=== PATIENT | female | born 1960 | race Caucasian/White ===

== ENCOUNTER 2017-02-08 11:38 | Emergency (ER) | payer BC ==
[2017-02-08] MEDS ORDERED: Sodium Chloride 0.9% 2.5 ML Syringe FLUSH PRN ×2 (11:57→12:05)
[2017-02-08] MEDS ORDERED: Sodium Chloride 0.9% 10 ML Syringe FLUSH PRN ×2 (11:57→12:05)
[2017-02-08] MEDS ORDERED: Sodium Chloride 0.9% 1,000 ML IV ONE (11:57)
--- NOTE | 2017-02-08 12:03 | EDM.PDOC ---
ED HPI GI/ABDOMINAL - General Chief Complaint: Gastrointestinal Problem Stated Complaint: BLOOD IN STOOL Time Seen by Provider: 02/08/17 11:38 Source of Information: Reports: Patient History Limitations: Reports: No limitations - History of Present Illness INITIAL COMMENTS - FREE TEXT/NARRATIVE: History of present illness: [] Patient started having black stools yesterday. She has had 3 large dark reddish bloody stools this morning and now feels lightheaded and weak. She denies abdominal pain or vomiting. She has a history of alcoholism and hepatitis C. Review of systems: As per history of present illness and below otherwise all systems reviewed and negative. Past medical history: As per history of present illness and as reviewed below otherwise noncontributory. Surgical history: As per history of present illness and as reviewed below otherwise noncontributory. Social history: No reported history of drug or alcohol abuse. Family history: As per history of present illness and as reviewed below otherwise noncontributory. Physical exam: General: Well developed, well nourished in NAD HEENT: Atraumatic, normocephalic, pupils reactive, conjunctival pallor, no scleral icterus, mucous membranes moist, throat clear, neck supple, nontender, trachea midline. Lungs: Clear to auscultation, breath sounds equal bilaterally, chest nontender. Heart: S1S2, regular, negative for clicks, rubs, or JVD. Abdomen: Obese Soft, nondistended, nontender. Negative for masses or hepatosplenomegaly. Negative for costovertebral tenderness. Pelvis: Stable nontender. Genitourinary: Deferred. Rectal: Melena Extremities: Atraumatic, negative for cords or calf pain. Neurovascular unremarkable. Neuro: Awake, alert, oriented. Cranial nerves II through XII unremarkable. Cerebellum unremarkable. Motor and sensory unremarkable throughout. Exam nonfocal. Diagnostics: [] Labs drawn Therapeutics: [] Patient presented with blood pressure of 69/45 heart rate of 67, she did take metoprolol this morning. After 500 MLS of fluid her blood pressure improved to 113/59. Patient was given a proton bolus and started on drip. Dr. Mcqueen at [facility] was contacted and accepted transfer. Patient was also given Zofran for nausea. Impression: [] Acute GI bleed Plan: [] Patient will be transferred to [facility] by air Definitive disposition and diagnosis as appropriate pending reevaluation and review of above. - Related Data Allergies/ADRs: Allergies Allergy/AdvReac Type Severity Reaction Status Date / Time cephalexin [Cephalexin] Allergy Rash Verified 08/21/16 06:01 Home Meds: Home Meds Albuterol Sulfate [Albuterol Sulfate HFA] 2 puff QID PRN 03/21/14 [History] Metoprolol Succinate 50 mg PO ACBRK 03/21/14 [History] traZODone 50 - 100 mg PO BEDTIME 03/21/14 [History] Furosemide [Lasix] 20 mg PO DAILY PRN 02/14/16 [History] Tiotropium Br/Olodaterol HCl [Stiolto Respimat Inhal [place]] 2 puff INH DAILY [History] Levothyroxine 125 mcg PO ACBREAKFAST 08/21/16 [History] Primidone 50 mg PO BEDTIME 08/21/16 [History] Sertraline [Zoloft] 50 mg PO DAILY 08/21/16 [History] LORazepam [Ativan] 1 mg PO BID PRN #14 tablet 08/25/16 [Rx] Past Medical History HEENT History: Reports: None Cardiovascular History: Reports: Hypertension Respiratory History: Reports: COPD, Pneumonia, recurrent Gastrointestinal History: Reports: Other (see below) Other Gastrointestinal History: Hepatitis C but treated already, Gastric Bypass Genitourinary History: Reports: None 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 OB/BYN History: 4 Musculoskeletal History: Reports: Other (see below) Other Musculoskeletal History: Tremors Neurological History: Reports: Other (see below) Other Neuro History: Tremors Psychiatric History: Reports: Anxiety, Depression Endocrine/Metabolic History: Reports: Hypothyroidism Other Endocrine/Metabolic History: Hypothyroidism Hematologic History: Reports: None Immunologic History: Reports: None Oncologic (Cancer) History: Reports: None Dermatologic History: Reports: None - Infectious Disease History Infectious Disease History: Reports: Hepatitis C - Past Surgical History Female Surgical History: Reports: Hysterectomy Social & Family History - Family History Family Medical History: Noncontributory HEENT: Reports: None Cardiac: Reports: None Respiratory: Reports: COPD GI: Reports: None : Reports: None Endocrine/Metabolic: Reports: Diabetes, type I, Diabetes, type II - Tobacco Use Smoking Status *Q: Current Every Day Smoker Years of Tobacco use: 20 Packs/Tins Daily: 1 Used Tobacco, but Quit: Yes Month Tobacco Last Used: june Second Hand Smoke Exposure: Yes - Caffeine Use Caffeine Use: Reports: Other Caffeine Use Comment: occasionally - Alcohol Use Days Per Week of Alcohol Use: 7 Number of Drinks Per Day: 12 Total Drinks Per Week: 84 - Recreational Drug Use Recreational Drug Use: No Drug Use in Last 12 Months: No ED ROS GENERAL - Review of Systems Review Of Systems: See Below (See history of present illness) ED EXAM, GI/ABD - Physical Exam Exam: See Below (See history of present illness) Course - Vital Signs Last Recorded V/S: Last Vital Signs Temp 36.0 C 02/08/17 12:07 Pulse 67 02/08/17 12:07 Resp 22 H 02/08/17 12:07 BP 69/47 L 02/08/17 12:07 Pulse Ox 95 02/08/17 12:07 - Orders/Labs/Meds Orders: Active Orders 24 hr Category Date Time Status COMPREHENSIVE METABOLIC PN,CMP [CHEM] Stat Lab 02/08/17 12:00 Received INR,PT,PROTHROMBIN TIME [COAG] Stat Lab 02/08/17 12:00 Received PTT,PARTIAL THROMBOPLSTIN TIME [COAG] Stat Lab 02/08/17 12:00 Received TYPE AND SCREEN [BBK] Stat Lab 02/08/17 12:14 Received Pantoprazole [Protonix IV] 80 mg Med 02/08/17 12:15 Active Sodium Chloride 0.9% [Normal Saline] 100 ml IV .Continuous Sodium Chloride 0.9% [Normal Saline] 1,000 ml Med 02/08/17 11:57 Active IV .Bolus Sodium Chloride 0.9% [Saline Flush] Med 02/08/17 11:57 Active 10 ml FLUSH ASDIRECTED PRN Sodium Chloride 0.9% [Saline Flush] Med 02/08/17 12:05 Active 10 ml FLUSH ASDIRECTED PRN Sodium Chloride 0.9% [Saline Flush] Med 02/08/17 11:57 Active 2.5 ml FLUSH ASDIRECTED PRN Sodium Chloride 0.9% [Saline Flush] Med 02/08/17 12:05 Active 2.5 ml FLUSH ASDIRECTED PRN Peripheral IV Insertion Adult [OM.PC] Stat Oth 02/08/17 11:57 Ordered Peripheral IV Insertion Adult [OM.PC] Stat Oth 02/08/17 12:05 Ordered Medication Orders Sodium Chloride (Normal Saline) 1,000 mls @ 999 mls/hr IV .Bolus ONE Stop: 02/08/17 12:57 Last Admin: 02/08/17 12:18 Dose: 999 mls/hr Pantoprazole Sodium 80 mg/ (Sodium Chloride) 100 mls @ 10 mls/hr IV .Continuous SHARON Sodium Chloride (Saline Flush) 10 ml FLUSH ASDIRECTED PRN PRN Reason: Keep Vein Open Last Admin: 02/08/17 12:19 Dose: 10 ml Sodium Chloride (Saline Flush) 2.5 ml FLUSH ASDIRECTED PRN PRN Reason: Keep Vein Open Last Admin: 02/08/17 12:20 Dose: 2.5 ml Sodium Chloride (Saline Flush) 10 ml FLUSH ASDIRECTED PRN PRN Reason: Keep Vein Open Last Admin: 02/08/17 12:19 Dose: 10 ml Sodium Chloride (Saline Flush) 2.5 ml FLUSH ASDIRECTED PRN PRN Reason: Keep Vein Open Last Admin: 02/08/17 12:20 Dose: 2.5 ml Labs: Laboratory Tests 02/08/17 Range/Units 12:00 WBC 12.95 H (4.0-11.0) K/uL RBC 3.60 L (4.30-5.90) M/uL Hgb 9.8 L (12.0-16.0) g/dL Hct 29.8 L (36.0-46.0) % MCV 82.8 (80.0-98.0) fL MCH 27.2 (27.0-32.0) pg MCHC 32.9 (31.0-37.0) g/dL RDW Std Deviation 54.5 (28.0-62.0) fl RDW Coeff of Varsha 18 H (11.0-15.0) % Plt Count 175 (150-400) K/uL MPV 9.30 (7.40-12.00) fL Neut % (Auto) 65.3 (48.0-80.0) % Lymph % (Auto) 24.2 (16.0-40.0) % [place] % (Auto) 9.0 (0.0-15.0) % Eos % (Auto) 1.1 (0.0-7.0) % Baso % (Auto) 0.4 (0.0-1.5) % Neut # 8.5 H (1.4-5.7) K/uL Lymph # 3.1 H (0.6-2.4) K/uL [place] # 1.2 H (0.0-0.8) K/uL Eos # 0.1 (0.0-0.7) K/uL Baso # 0.1 (0.0-0.1) K/uL Nucleated RBC % 0.0 /100WBC Nucleated RBCs # 0 K/uL Meds: Medications Generic Name Dose Route Start Last Admin Trade Name Freq PRN Reason Stop Dose Admin Sodium Chloride 1,000 mls @ 999 mls/hr 02/08/17 11:57 02/08/17 12:18 Normal Saline IV 02/08/17 12:57 999 mls/hr .Bolus ONE Administration Pantoprazole Sodium 80 mg/ 100 mls @ 10 mls/hr 02/08/17 12:15 Sodium Chloride IV .Continuous SHARON Sodium Chloride 10 ml 02/08/17 11:57 02/08/17 12:19 Saline Flush FLUSH 10 ml ASDIRECTED PRN Administration Keep Vein Open Sodium Chloride 2.5 ml 02/08/17 11:57 02/08/17 12:20 Saline Flush FLUSH 2.5 ml ASDIRECTED PRN Administration Keep Vein Open Sodium Chloride 10 ml 02/08/17 12:05 02/08/17 12:19 Saline Flush FLUSH 10 ml ASDIRECTED PRN Administration Keep Vein Open Sodium Chloride 2.5 ml 02/08/17 12:05 02/08/17 12:20 Saline Flush FLUSH 2.5 ml ASDIRECTED PRN Administration Keep Vein Open Discontinued Medications Generic Name Dose Route Start Last Admin Trade Name Freq PRN Reason Stop Dose Admin Ondansetron HCl 4 mg 02/08/17 12:13 02/08/17 12:23 Zofran IVPUSH 02/08/17 12:14 4 mg ONETIME ONE Administration Ondansetron HCl Confirm 02/08/17 12:14 Zofran Administered 02/08/17 12:15 Dose 4 mg .ROUTE .STK-MED ONE Pantoprazole Sodium 80 mg 02/08/17 12:04 Protonix Iv IVPUSH 02/08/17 12:05 .BOLUS ONE Departure - Departure Time of Disposition: 12:34 Disposition: DC/Tfer to Acute Hospital 02 Condition: fair Clinical Impression: Acute GI bleeding Forms: ED Department Discharge - My Orders Last 24 Hours: My Active Orders 02/08/17 11:57 Sodium Chloride 0.9% [Normal Saline] 1,000 ml IV .Bolus Sodium Chloride 0.9% [Saline Flush] 10 ml FLUSH ASDIRECTED PRN Sodium Chloride 0.9% [Saline Flush] 2.5 ml FLUSH ASDIRECTED PRN Peripheral IV Insertion Adult [OM.PC] Stat 02/08/17 12:00 COMPREHENSIVE METABOLIC PN,CMP [CHEM] Stat INR,PT,PROTHROMBIN TIME [COAG] Stat PTT,PARTIAL THROMBOPLSTIN TIME [COAG] Stat 02/08/17 12:05 Sodium Chloride 0.9% [Saline Flush] 10 ml FLUSH ASDIRECTED PRN Sodium Chloride 0.9% [Saline Flush] 2.5 ml FLUSH ASDIRECTED PRN Peripheral IV Insertion Adult [OM.PC] Stat 02/08/17 12:14 TYPE AND SCREEN [BBK] Stat 02/08/17 12:15 Pantoprazole [Protonix IV] 80 mg Sodium Chloride 0.9% [Normal Saline] 100 ml IV .Continuous - Assessment/Plan Last 24 Hours: My Active Orders 02/08/17 11:57 Sodium Chloride 0.9% [Normal Saline] 1,000 ml IV .Bolus Sodium Chloride 0.9% [Saline Flush] 10 ml FLUSH ASDIRECTED PRN Sodium Chloride 0.9% [Saline Flush] 2.5 ml FLUSH ASDIRECTED PRN Peripheral IV Insertion Adult [OM.PC] Stat 02/08/17 12:00 COMPREHENSIVE METABOLIC PN,CMP [CHEM] Stat INR,PT,PROTHROMBIN TIME [COAG] Stat PTT,PARTIAL THROMBOPLSTIN TIME [COAG] Stat 02/08/17 12:05 Sodium Chloride 0.9% [Saline Flush] 10 ml FLUSH ASDIRECTED PRN Sodium Chloride 0.9% [Saline Flush] 2.5 ml FLUSH ASDIRECTED PRN Peripheral IV Insertion Adult [OM.PC] Stat 02/08/17 12:14 TYPE AND SCREEN [BBK] Stat 02/08/17 12:15 Pantoprazole [Protonix IV] 80 mg Sodium Chloride 0.9% [Normal Saline] 100 ml IV .Continuous
[2017-02-08] MEDS ORDERED: Pantoprazole 40 MG Vial IVPUSH ONE (12:04)
[2017-02-08] MEDS ORDERED: Ondansetron 4 MG/2 ML SDV IVPUSH ONE (12:13)
[2017-02-08] MEDS ORDERED: Ondansetron 4 MG/2 ML SDV ONE (12:14)
[2017-02-08] MEDS ORDERED: Pantoprazole 80 MG in Sodium Chloride 0.9% 100 ML IV SCH (12:15)
[2017-02-08 12:37] LABS: CHLORIDE,CL 104 mmol/L (98-110); SODIUM,NA 134 mmol/L (136-146)
[2017-02-08 13:03] VITALS: BP 115/64
== END 2017-02-08 13:04 ==
LOC: MW.ED 11:38
DX: K92.2 Gastrointestinal hemorrhage, unspecified (principal); I10 Essential (primary) hypertension; F17.210 Nicotine dependence, cigarettes, uncomplicated; Z88.6 Allergy status to analgesic agent; Z79.899 Other long term (current) drug therapy; Z87.01 Personal history of pneumonia (recurrent); Z90.710 Acquired absence of both cervix and uterus
CPT/HCPCS: 80053; 85025; 85610; 85730; 86850; 86900; 86901; 96374; 96376; 99285; C9113; J2405; J7030; J7040

== ENCOUNTER 2017-03-12 13:40 | Emergency (ER) | payer BC ==
[2017-03-12] MEDS ORDERED: Albuterol/Ipratropium 3.0-0.5 MG/3 ML Neb Soln NEB ONE (13:44)
[2017-03-12] MEDS ORDERED: predniSONE 20 MG Tab PO ONE (13:47)
[2017-03-12] MEDS: Albuterol 0.083% 2.5 MG/3 ML Neb Soln NEB PRN ×3 (14:00→15:17)
--- NOTE | 2017-03-12 14:03 | EDM.PDOC ---
ED HISTORY OF PRESENT ILLNESS - General Chief Complaint: Respiratory Problem Stated Complaint: SHORTNESS OF BREATH/COPD Time Seen by Provider: 03/12/17 13:41 Source of Information: Reports: Patient History Limitations: Reports: No limitations - History of Present Illness INITIAL COMMENTS - FREE TEXT/NARRATIVE: History of present illness: [] Patient's had a few days of worsening shortness of breath. He has a history of asthma and during the seasonal changes it gets worse. She denies any cough or fevers or any other illnesses. Review of systems: As per history of present illness and below otherwise all systems reviewed and negative. Past medical history: As per history of present illness and as reviewed below otherwise noncontributory. Surgical history: As per history of present illness and as reviewed below otherwise noncontributory. Social history: No reported history of drug or alcohol abuse. Family history: As per history of present illness and as reviewed below otherwise noncontributory. Physical exam: General: Well developed, well nourished in mild respiratory distress HEENT: Atraumatic, normocephalic, pupils reactive, negative for conjunctival pallor or scleral icterus, mucous membranes moist, throat clear, neck supple, nontender, trachea midline. No stridor Lungs: Bilateral wheezing to auscultation, accessory muscle use, breath sounds decreased bilaterally, chest nontender. Heart: S1S2, regular, negative for clicks, rubs, or JVD. Abdomen: Soft, nondistended, nontender. Negative for masses or hepatosplenomegaly. Negative for costovertebral tenderness. Pelvis: Stable nontender. Genitourinary: Deferred. Rectal: Deferred. Extremities: Atraumatic, negative for cords or calf pain. Neurovascular unremarkable. Neuro: Awake, alert, oriented. Cranial nerves II through XII unremarkable. Cerebellum unremarkable. Motor and sensory unremarkable throughout. Exam nonfocal. Diagnostics: [] Chest x-ray negative for pneumonia Therapeutics: [] DuoNeb and subsequent albuterol nebulizers, prednisone given in the ED with improvement Impression: [] Acute asthma exacerbation Plan: [] Prednisone 40 mg daily for 5 days use the inhaler as directed followup PMD return if symptoms worse keep appointment in 2 days with her primary care doctor as Definitive disposition and diagnosis as appropriate pending reevaluation and review of above. - Related Data Allergies/ADRs: Allergies Allergy/AdvReac Type Severity Reaction Status Date / Time cephalexin [Cephalexin] Allergy Rash Verified 03/12/17 13:58 Home Meds: Home Meds Albuterol Sulfate [Albuterol Sulfate HFA] 2 puff INH QID PRN 03/21/14 [History] Metoprolol Succinate 0 mg PO ACBRK 03/21/14 [History] traZODone 0 mg PO BEDTIME 03/21/14 [History] Furosemide [Lasix] 0 mg PO DAILY PRN 02/14/16 [History] Levothyroxine 0 mcg PO ACBREAKFAST 08/21/16 [History] Primidone 0 mg PO BEDTIME 08/21/16 [History] Sertraline [Zoloft] 0 mg PO DAILY 08/21/16 [History] Albuterol/Ipratropium [DuoNeb 3.0-0.5 MG/3 ML] 0 ml NEB Q4HRRT 03/12/17 [History ] Budesonide/Formoterol [Symbicort 160-4.5 MCG] 2 puff INH BID 03/12/17 [History] LORazepam [Ativan] 0 mg PO BID PRN 03/12/17 [History] predniSONE [Prednisone] 40 mg PO DAILY #10 tablet 03/12/17 [Rx] Past Medical History HEENT History: Reports: None Cardiovascular History: Reports: Hypertension Respiratory History: Reports: COPD, Pneumonia, recurrent Gastrointestinal History: Reports: Other (see below) Other Gastrointestinal History: Hepatitis C but treated already, Gastric Bypass Genitourinary History: Reports: None 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: 4 Musculoskeletal History: Reports: Other (see below) Other Musculoskeletal History: Tremors Neurological History: Reports: Other (see below) Other Neuro History: Tremors Psychiatric History: Reports: Anxiety, Depression Endocrine/Metabolic History: Reports: Hypothyroidism Other Endocrine/Metabolic History: Hypothyroidism Hematologic History: Reports: None Immunologic History: Reports: None Oncologic (Cancer) History: Reports: None Dermatologic History: Reports: None - Infectious Disease History Infectious Disease History: Reports: Hepatitis C - Past Surgical History Female Surgical History: Reports: Hysterectomy Social & Family History - Family History Family Medical History: Noncontributory HEENT: Reports: None Cardiac: Reports: None Respiratory: Reports: COPD GI: Reports: None : Reports: None Endocrine/Metabolic: Reports: Diabetes, type I, Diabetes, type II - Tobacco Use Smoking Status *Q: Current Every Day Smoker Years of Tobacco use: 20 Packs/Tins Daily: 1 Used Tobacco, but Quit: Yes Month Tobacco Last Used: june Second Hand Smoke Exposure: Yes - Caffeine Use Caffeine Use: Reports: Other Caffeine Use Comment: occasionally - Alcohol Use Days Per Week of Alcohol Use: 7 Number of Drinks Per Day: 12 Total Drinks Per Week: 84 - Recreational Drug Use Recreational Drug Use: No Drug Use in Last 12 Months: No ED ROS GENERAL - Review of Systems Review Of Systems: See Below (See history of present illness) ED EXAM, GENERAL - Physical Exam Exam: See Below (See history of present illness) Course - Vital Signs Last Recorded V/S: Last Vital Signs Temp 36.4 C 03/12/17 13:40 Pulse 76 03/12/17 13:40 Resp 26 H 03/12/17 13:40 BP 192/108 H 03/12/17 13:40 Pulse Ox 93 L 03/12/17 13:40 - Orders/Labs/Meds Orders: Active Orders 24 hr Category Date Time Status RT Aerosol Therapy [RC] ASDIRECTED Care 03/12/17 13:44 Active RT Aerosol Therapy [RC] ASDIRECTED Care 03/12/17 13:55 Active Chest 2V [CR] Stat Exams 03/12/17 14:08 Taken Albuterol [Proventil Neb Soln] Med 03/12/17 13:54 Active 2.5 mg NEB ASDIRECTED PRN Medication Orders Albuterol (Proventil Neb Soln) 2.5 mg NEB ASDIRECTED PRN PRN Reason: Shortness of Breath Stop: 03/14/17 13:55 Last Admin: 03/12/17 15:17 Dose: 2.5 mg Admin: 03/12/17 14:29 Dose: 2.5 mg Admin: 03/12/17 14:00 Dose: 2.5 mg Meds: Medications Generic Name Dose Route Start Last Admin Trade Name Freq PRN Reason Stop Dose Admin Albuterol 2.5 mg 03/12/17 13:54 03/12/17 15:17 Proventil Neb Soln NEB 03/14/17 13:55 2.5 mg ASDIRECTED PRN Administration Shortness of Breath Discontinued Medications Generic Name Dose Route Start Last Admin Trade Name Freq PRN Reason Stop Dose Admin Albuterol/Ipratropium 3 ml 03/12/17 13:44 03/12/17 13:47 Duoneb 3.0-0.5 Mg/3 Ml NEB 03/12/17 13:45 3 ml ONETIME ONE Administration Magnesium Sulfate 2 gm/ Premix 50 mls @ 25 mls/hr 03/12/17 14:32 IV 03/12/17 16:31 ONETIME ONE Sodium Chloride 1,000 mls @ 999 mls/hr 03/12/17 14:44 Normal Saline IV 03/12/17 15:44 .Bolus ONE Prednisone 60 mg 03/12/17 13:47 03/12/17 14:07 Prednisone PO 03/12/17 13:48 60 mg ONETIME ONE Administration Sodium Chloride 10 ml 03/12/17 14:32 Saline Flush FLUSH ASDIRECTED PRN Keep Vein Open Sodium Chloride 2.5 ml 03/12/17 14:32 Saline Flush FLUSH ASDIRECTED PRN Keep Vein Open Departure - Departure Time of Disposition: 15:32 Disposition: Home, Self-Care 01 Condition: good Clinical Impression: Acute asthma exacerbation Qualifiers: Asthma severity: severe persistent Qualified Code(s): J45.51 - Severe persistent asthma with (acute) exacerbation Prescriptions: predniSONE [Prednisone] 40 mg PO DAILY #10 tablet Referrals: John Bauer MD [Primary Care Provider] - Forms: ED Department Discharge Additional Instructions: The following information is given to patients seen in the emergency department who are being discharged to home. This information is to outline your options for follow-up care. We provide all patients seen in our emergency department with a follow-up referral. The need for follow-up, as well as the timing and circumstances, are variable depending upon the specifics of your emergency department visit. If you don't have a primary care physician on staff, we will provide you with a referral. We always advise you to contact your personal physician following an emergency department visit to inform them of the circumstance of the visit and for follow-up with them and/or the need for any referrals to a consulting specialist. The emergency department will also refer you to a specialist when appropriate. This referral assures that you have the opportunity for follow-up care with a specialist. All of these measure are taken in an effort to provide you with optimal care, which includes your follow-up. Under all circumstances we always encourage you to contact your private physician who remains a resource for coordinating your care. When calling for follow-up care, please make the office aware that this follow-up is from your recent emergency room visit. If for any reason you are refused follow-up, please contact the [facility] Emergency Department at and asked to speak to the emergency department charge nurse. Prednisone daily for 5 days Followup with PMD, [facility] [address] [place] [id number] - My Orders Last 24 Hours: My Active Orders 03/12/17 13:44 RT Aerosol Therapy [RC] ASDIRECTED 03/12/17 13:54 Albuterol [Proventil Neb Soln] 2.5 mg NEB ASDIRECTED PRN 03/12/17 13:55 RT Aerosol Therapy [RC] ASDIRECTED 03/12/17 14:08 Chest 2V [CR] Stat - Assessment/Plan Last 24 Hours: My Active Orders 03/12/17 13:44 RT Aerosol Therapy [RC] ASDIRECTED 03/12/17 13:54 Albuterol [Proventil Neb Soln] 2.5 mg NEB ASDIRECTED PRN 03/12/17 13:55 RT Aerosol Therapy [RC] ASDIRECTED 03/12/17 14:08 Chest 2V [CR] Stat
[2017-03-12 14:07] VITALS: BP 192/108
[2017-03-12] MEDS ORDERED: Magnesium Sulfate/Water 2 GM in Premix Bag 1 BAG IV ONE (14:32)
[2017-03-12] MEDS ORDERED: Sodium Chloride 0.9% 10 ML Syringe FLUSH PRN (14:32)
[2017-03-12] MEDS ORDERED: Sodium Chloride 0.9% 2.5 ML Syringe FLUSH PRN (14:32)
[2017-03-12] MEDS ORDERED: Sodium Chloride 0.9% 1,000 ML IV ONE (14:44)
--- NOTE | 2017-03-14 10:44 | CR ---
EXAM DATE: 03/12/17 PATIENT'S AGE: 56 Patient: JENNIFER MANDUJANO Facility: [place], [place] Site . Site : 1960 Study: XRay Chest [id number] 2:22:27 PM Ordering Physician: Woodrow Ta Final Report: INDICATION: Cough and shortness of breath. TECHNIQUE: Chest 2 views. COMPARISON: December 27, 2016. FINDINGS: Cardiovascular and mediastinum: Heart size and vasculature are normal in caliber and appearance. Mediastinum is within normal limits. Lungs and pleural spaces: There is central peribronchial thickening. Normal heart infiltrates or effusions. No pneumothorax. Bones and soft tissues: No significant findings. IMPRESSION: Central peribronchial thickening persists but has improved since the prior exam. Recurrent or chronic bronchitis is suspected. Remainder of the exam is unremarkable. Dictated by Pool Rodrigues MD @ 03/12/2017 2:43:37 PM Dictated by: Pool Rodrigues MD @ 03/12/2017 14:43:43 (Electronic Signature) Report Signed by Proxy and Original Signed Document filed in the Medical Record. [facility]
== END 2017-03-12 15:48 | disposition home or self-care (01) ==
LOC: MW.ED 13:40
DX: J45.51 Severe persistent asthma with (acute) exacerbation (principal); I10 Essential (primary) hypertension; J44.9 Chronic obstructive pulmonary disease, unspecified; F41.8 Other specified anxiety disorders; E03.9 Hypothyroidism, unspecified; F17.210 Nicotine dependence, cigarettes, uncomplicated; Z90.710 Acquired absence of both cervix and uterus; Z79.899 Other long term (current) drug therapy; Z88.1 Allergy status to other antibiotic agents
CPT/HCPCS: 71020; 94640; 94664; 99285; A9270; 99284

== ENCOUNTER → 2017-03-14 | Outpatient (CLI) | payer BC | LOC: MW.CHIM 13:23 | PROVIDERS: ATTEND Internal Medicine | DX: D64.9 Anemia, unspecified (principal) | CPT/HCPCS: 36415; 83540; 85025 ==

== ENCOUNTER → 2017-03-24 | Outpatient (CLI) | payer BC | LOC: MW.CHIM 13:15 | PROVIDERS: ATTEND Internal Medicine | DX: D64.9 Anemia, unspecified (principal) | CPT/HCPCS: 36415; 83540; 85025 ==

== ENCOUNTER → 2017-04-06 | Outpatient (CLI) | payer BC | LOC: MW.CHIM 11:51 | PROVIDERS: ATTEND Internal Medicine | DX: D64.9 Anemia, unspecified (principal) | CPT/HCPCS: 36415; 83540; 85025 ==

== ENCOUNTER → 2017-04-07 | Outpatient (CLI) | payer BC ==
--- NOTE | 2017-04-07 17:01 | US ---
EXAMINATION: Limited abdominal ultrasound HISTORY: Anemia COMPARISON: None TECHNIQUE: Grayscale and color Doppler images obtained of the abdomen. FINDINGS: The visualized pancreas appears normal. The liver demonstrates a nodular contour with mild ly coarsened hepatic echotexture. No focal hepatic mass. Cholecystectomy. The common bile duct measu res 3 mm. The visualized IVC and aorta appear normal. The right kidney measures 11.5 cm [id number] without evidence of hydronephrosis. IMPRESSION: 1. Coarsened hepatic echotexture, correlate clinically for hepatocellular disease versus fatty infil tration. 2. Cholecystectomy.
== END ==
LOC: MW.CHIM 14:46
PROVIDERS: ATTEND Internal Medicine
DX: D64.9 Anemia, unspecified (principal); R10.9 Unspecified abdominal pain; K76.89 Other specified diseases of liver; Z90.49 Acquired absence of other specified parts of digestive tract
CPT/HCPCS: 76700; 76700-26

== ENCOUNTER → 2017-04-11 | Outpatient (CLI) | payer BC | LOC: MW.CHIM 13:25 | PROVIDERS: ATTEND Internal Medicine | DX: D64.9 Anemia, unspecified (principal) | CPT/HCPCS: 82270 ==

== ENCOUNTER 2019-04-17 09:30 | Day surgery (SDC) | payer BC ==
[~2019-04-17 09:30] MED LIST: Sodium Chloride 0.9% 1,000 ML IV SCH; Sodium Chloride 0.9% 10 ML SDV IV PRN; Sodium Chloride 0.9% 10 ML Syringe FLUSH PRN; Sodium Chloride 0.9% 2.5 ML Syringe FLUSH PRN
[2019-04-17] MEDS ORDERED: Midazolam 1 MG/ML 2 ML SDV ONE (10:13)
[2019-04-17] MEDS ORDERED: Propofol 200 MG/20 ML SDV ONE (10:14)
[2019-04-17] MEDS ORDERED: fentaNYL 100 MCG/2 ML SDV ONE (10:14)
[2019-04-17] MEDS ORDERED: Albuterol/Ipratropium 3.0-0.5 MG/3 ML Neb Soln NEB ONE (10:21)
--- NOTE | 2019-04-17 10:26 | PCM.PREANE ---
Preanesthetic Assessment - Anesthesia/Transfusion/Family Hx Anesthesia History: Prior Anesthesia Without Reaction Other Type of Anesthesia Reaction Comment: Denies any known problem with anesthesia in the past, "some motion sickness Family History of Anesthesia Reaction: No Transfusion History: Prior Transfusion Without Reaction - Review of Systems Pulmonary: Shortness of Breath, Wheezing Cardiovascular: Dyspnea on Exertion Neurological: No Symptoms Other: Reports: Liver Problems - Physical Assessment NPO Status Date: 04/16/19 Height: 5 ft 4 in Weight: 105.233 kg ASA Class: 3 Mental Status: Alert & Oriented x3 Airway Class: Mallampati = 3 ROM/Head Extension: Full Lungs: Clear to Auscultation, Normal Respiratory Effort Cardiovascular: Regular Rate, Regular Rhythm - Allergies Allergies/Adverse Reactions: Allergies Allergy/AdvReac Type Severity Reaction Status Date / Time sulfamethoxazole Allergy Other Verified 04/13/19 15:53 [From Bactrim] trimethoprim [From Bactrim] Allergy Other Verified 04/13/19 15:53 - Blood Blood Available: No - Anesthesia Plan Pre-Op Medication Ordered: Other (duoneb) - Acknowledgements Anesthesia Type Planned: General Anesthesia Pt an Appropriate Candidate for the Planned Anesthesia: Yes Alternatives and Risks of Anesthesia Discussed w Pt/Guardian: Yes Pt/Guardian Understands and Agrees with Anesthesia Plan: Yes Additional Comments: PMH: 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 PLAN: TIVA, pre procedure duoneb treatment. 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: Reports: Other OB/BYN History: 4 Musculoskeletal History: Reports: Fracture Other Musculoskeletal History: right ankle Neurological History: Reports: Other (See Below) Other Neuro History: essential tremor Psychiatric History: Reports: Anxiety, Depression Endocrine/Metabolic History: Reports: Hypothyroidism, Obesity/BMI 30+ Other Endocrine/Metabolic History: Hypothyroidism Hematologic History: Reports: Other (See Below) Other Hematologic History: currently has low platlets Immunologic History: Reports: None Oncologic (Cancer) History: Reports: Liver Other Oncologic History: currently receiving treatment Dermatologic History: Reports: None - Infectious Disease History Infectious Disease History: Reports: None Other Infectious Disease History: Pt has had treatment for Hep. C - Past Surgical History Head Surgeries/Procedures: Reports: None HEENT Surgical History: Reports: Naso-Sinus Surgery GI Surgical History: Reports: Bariatric Procedure, Cholecystectomy, Colon, Colonoscopy Female Surgical History: Reports: Hysterectomy, Tubal Ligation Musculoskeletal Surgical History: Reports: ORIF Other Musculoskeletal Surgeries/Procedures:: ORIF right ankle with bone graft- thinks she has "plastic" implants in her ankle - SUBSTANCE USE Smoking Status *Q: Current Every Day Smoker Tobacco Use Within Last Twelve Months: Cigarettes Recreational Drug Use History: No - HOME MEDS Home Medications: Home Meds Furosemide [Lasix] 20 mg PO DAILY 02/14/16 [History] Sertraline [Zoloft] 100 mg PO DAILY 08/21/16 [History] Albuterol/Ipratropium [DuoNeb 3.0-0.5 MG/3 ML] 2.5 mg NEB Q6H 03/12/17 [History] LORazepam [Ativan] 1 mg PO TID PRN 03/12/17 [History] fentaNYL [Duragesic] 50 mcg TD Q72H 11/04/18 [History] Albuterol Sulfate [Proair Hfa] 1 puff INH QID 04/13/19 [History] Ascorbic Acid [Vitamin C] 1,000 mg PO DAILY 04/13/19 [History] Cholecalciferol (Vitamin D3) [Vitamin D3] 5,000 unit PO DAILY 04/13/19 [History] Cyanocobalamin (Vitamin B-12) [B-12] 1,000 mcg PO DAILY 04/13/19 [History] Ferrous Sulfate 325 mg PO DAILY 04/13/19 [History] Folic Acid 0.4 mg PO DAILY 04/13/19 [History] Levothyroxine 225 mcg PO DAILY 04/13/19 [History] Losartan [Cozaar] 50 mg PO BID 04/13/19 [History] Primidone 50 mg PO BEDTIME 04/13/19 [History] Thiamine HCl 250 mg PO DAILY 04/13/19 [History] hydroCHLOROthiazide [Hydrochlorothiazide] 25 mg PO DAILY 04/13/19 [History] oxyCODONE HCl [Oxycodone HCl] 10 mg PO Q4H PRN 04/13/19 [History] - CURRENT (IN HOUSE) MEDS Current Meds: Current Medications Sodium Chloride (Normal Saline) 1,000 mls @ 100 mls/hr IV ASDIRECTED SHARON Sodium Chloride (Saline Flush) 10 ml FLUSH ASDIRECTED PRN PRN Reason: Keep Vein Open Sodium Chloride (Saline Flush) 2.5 ml FLUSH ASDIRECTED PRN PRN Reason: Keep Vein Open Sodium Chloride (Normal Saline) 10 ml IV ASDIRECTED PRN PRN Reason: IV Use Discontinued Medications Fentanyl (Sublimaze) Confirm Administered Dose 100 mcg .ROUTE .STK-MED ONE Stop: 04/17/19 10:15 Midazolam HCl (Versed 1 Mg/Ml) Confirm Administered Dose 2 mg .ROUTE .STK-MED ONE Stop: 04/17/19 10:14 Propofol (Diprivan 20 Ml) Confirm Administered Dose 200 mg .ROUTE .STK-MED ONE Stop: 04/17/19 10:15
--- NOTE | 2019-04-17 12:12 | PCM.OPNOTE ---
- General Post-Op/Procedure Note Date of Surgery/Procedure: 04/17/19 Operative Procedure(s): Diagnostic EGD Findings: Grade 1 varices Pre Op Diagnosis: Hepatocellular carcinoma Post-Op Diagnosis: Grade 1 varices Anesthesia Technique: CIRO Primary Surgeon: Jaylene Kc Condition: Good
--- NOTE | 2019-04-17 12:49 | PCM.POSTAN ---
POST ANESTHESIA ASSESSMENT - MENTAL STATUS Mental Status: Alert, Oriented - RESPIRATORY Respiratory Status: Respiratory Rate WNL, Airway Patent, O2 Saturation Stable - CARDIOVASCULAR CV Status: Pulse Rate WNL, Blood Pressure Stable - GASTROINTESTINAL GI Status: No Symptoms - POST OP HYDRATION Hydration Status: Adequate & Stable
--- NOTE | 2019-04-17 13:20 | PCM48HPAN ---
Post Anesthesia Note - EVALUATION WITHIN 48HRS OF ANESTHETIC Vital Signs in Normal Range: Yes Patient Participated in Evaluation: Yes Respiratory Function Stable: Yes Airway Patent: Yes Cardiovascular Function Stable: Yes Hydration Status Stable: Yes Pain Control Satisfactory: Yes Nausea and Vomiting Control Satisfactory: Yes Mental Status Recovered: Yes Pulse Rate: 73 SaO2: 96 Resp Rate: 12 Blood Pressure: 110/62
[2019-04-17 15:17] VITALS: BP 109/61
--- NOTE | 2019-04-17 19:40 | OR ---
SURGEON: JAYLENE KC MD DATE OF PROCEDURE: 04/17/2019 PREOPERATIVE DIAGNOSIS: Hepatocellular carcinoma. POSTOPERATIVE DIAGNOSIS: Grade 1 esophageal varices. PROCEDURE PERFORMED: Diagnostic esophagogastroduodenoscopy. PRIMARY SURGEON: Jaylene Kc MD. ANESTHESIA: MAC. INSTRUMENT USED: Olympus endoscope. EXTENT OF EXAM: To the Yesenia-en-Y limb. PREPARATION: Good. LIMITATIONS: None. INDICATION FOR EXAMINATION: The patient is a 58-year-old female with hepatocellular carcinoma. She has a portal venous thrombus and her physician would like to start her on anticoagulation therapy. However, they would like to rule out esophageal varices disease beforehand. I discussed this with both her oncologist as well as the patient. I discussed the procedure, expected perioperative course, and the risks including bleeding, infection, or perforation. The patient verbalized understanding and wishes to proceed. PROCEDURE IN DETAIL: The patient was brought into the endoscopy suite and placed in a beach chair position. A time-out was completed verifying the patient's name, age, date of , allergies, and procedure to be performed. A bite block was placed in the patient's mouth. Monitored anesthesia care was induced and continuous oxygen was provided via nasal cannula throughout the procedure. After adequate sedation was achieved, a well lubricated endoscope was placed in the patient's mouth and advanced under direct visualization into the gastric pouch and down her Yesenia-en-Y limb. I was able to get good visualization of this limb. A photograph was taken. The scope was then fully withdrawn while examining the upper GI mucosa. There was no evidence of ulceration at the GJ junction. A photograph of this was taken. The stomach pouch appeared healthy and the gastric mucosa showed no signs of ulceration. A photograph was taken of the Z- line. Just above this, there was a single enlarged esophageal varices, but this was quite small and showed no evidence of moderate or severe tortuosity or any stigmata of bleeding. Multiple photographs of this were taken. The remainder of the esophageal mucosa was normal. The scope was removed and the procedure terminated. The patient was transferred to the PACU in stable condition. ENDOSCOPIC DIAGNOSIS: Grade 1 esophageal varices. RECOMMENDATIONS: The patient is a very low burden of disease. There was no evidence of bleeding at this time. I would feel comfortable proceeding with anticoagulation as long as the Oncology team is okay with this. SULLY / MODL /[id number]
== END 2019-04-17 13:25 | disposition home or self-care (01) ==
LOC: MW.SDS 09:30
PROVIDERS: ATTEND Surgery
DX: I85.00 Esophageal varices without bleeding (principal); I81 Portal vein thrombosis; C22.0 Liver cell carcinoma; E03.9 Hypothyroidism, unspecified; K21.9 Gastro-esophageal reflux disease without esophagitis; F41.9 Anxiety disorder, unspecified; F32.9 Major depressive disorder, single episode, unspecified; J44.9 Chronic obstructive pulmonary disease, unspecified; Z88.2 Allergy status to sulfonamides; Z88.1 Allergy status to other antibiotic agents; Z98.84 Bariatric surgery status; Z87.891 Personal history of nicotine dependence; Z79.899 Other long term (current) drug therapy
CPT/HCPCS: 43235; 94640; J2250; J2704; J3010; J7040; 00731; J7620-GY

== ENCOUNTER 2019-05-05 18:47 | Emergency (ER) | payer BC ==
[2019-05-05] MEDS ORDERED: Ondansetron 4 MG/2 ML SDV IVPUSH ONE (19:34)
[2019-05-05] MEDS ORDERED: Sodium Chloride 0.9% 10 ML Syringe FLUSH PRN (19:34)
[2019-05-05] MEDS ORDERED: Sodium Chloride 0.9% 2.5 ML Syringe FLUSH PRN (19:34)
[2019-05-05] MEDS ORDERED: HYDROmorphone 1 MG/ML Syringe IVPUSH ONE ×2 (19:34→20:40)
[2019-05-05] MEDS ORDERED: Pantoprazole 40 MG Vial IVPUSH ONE (19:34)
--- NOTE | 2019-05-05 19:36 | EDM.PDOC ---
ED HPI GENERAL MEDICAL PROBLEM - General Chief Complaint: Abdominal Pain Stated Complaint: SEVERE STOMACH PAIN, HAS LIVER CA Time Seen by Provider: 05/05/19 19:23 - History of Present Illness INITIAL COMMENTS - FREE TEXT/NARRATIVE: HISTORY AND PHYSICAL: History of present illness: The patient is a 58-year-old female with a history of hepatocellular carcinoma, alcohol use and abuse in the past, grade 1 esophageal varices diagnosed on EGD recently on April 17, and she says she is on immunotherapy in our oncology center with the last dose about a month ago who presents stating that she is having severe upper abdominal pain and she's been out of her pain meds, oxycodone and Duragesic patch for at least 2 days. The patient's next appointment is in the oncology center for another dose of immunotherapy and conversation about care plan going forward and that appointment is on May 10. The patient tells me she did call the clinic on Tuesday because she ran a number meds and they said that they cannot refill them until 09 May. Patient is not sure if she lost some of her pills but she says that she has not been taking extra. She does tell me that they have been gradually increasing her pain meds because she has not been doing very well on them. When asked her if she has metastasis from the liver cancer she is not sure. She also has a history of hypothyroidism. The patient follows in our family practice clinic and says that she was not seen last week but she did have blood work performed which I reviewed and also had a chest x- ray at that time. Her ammonia level was 273 and she was contacted by the provider and placed on lactulose which she says she has been taking. She tells me her fentanyl patch was over a week old when she removed it today and she did not have a replacement for it. She tells me the pain is a similar location but seems to be more intensity. She is not having any vomiting fevers chest pain or shortness of breath and has not had a change in her bowel movements. The patient does me she had an appendectomy and a cholecystectomy Nursing tells me that the patient admits to her that she is not taking her pain medication the way she is supposed to and she oftentimes will not change her fentanyl patch until it is overdue by several days. Has been also says that because she does not like taking pain medication that she will skip days and then have severe pain because of it. Review of systems: As per history of present illness and below otherwise all systems reviewed and negative. Past medical history: As per history of present illness and as reviewed below otherwise noncontributory. Surgical history: As per history of present illness and as reviewed below otherwise noncontributory. Social history: No reported history of drug or alcohol abuse. Family history: As per history of present illness and as reviewed below otherwise noncontributory. Physical exam: General: Well-developed well-nourished female who is nontoxic and looks uncomfortable in the room and prefers to be bent over in the chair or standing. Vital signs are noted by me. HEENT: Atraumatic, normocephalic, pupils reactive, negative for conjunctival pallor or scleral icterus, mucous membranes moist, throat clear, neck supple, nontender, trachea midline. Lungs: Clear to auscultation with diminished breath sounds in the bases, breath sounds equal bilaterally, chest nontender. Heart: S1S2, regular rate and rhythm no overt murmurs Abdomen: Soft, nondistended, there is no tympany on percussion, bowel sounds are hypoactive, the liver is enlarged and the patient's tenderness is mostly in the epigastrium and the right upper quadrant.. Negative for costovertebral tenderness. Pelvis: Stable nontender. Genitourinary: Deferred. Rectal: Deferred. Extremities: Atraumatic, negative for cords or calf pain. No pedal edema or leg asymmetry Neurovascular unremarkable. Neuro: Awake, alert, oriented. Cranial nerves II through XII unremarkable. Cerebellum unremarkable. Motor and sensory unremarkable throughout. Exam nonfocal. Diagnostics: CBC CMP amylase lipase H. pylori ammonia level INR alcohol level UA with reflex CT scan of the abdomen and pelvis Therapeutics: IV access IV fluids Protonix Zofran Dilaudid fentanyl patch We are currently awaiting the CT scan results and there have been significant delays with in the CT performed and getting the reading. The patient and have been kept abreast of these delays. As soon as those results are available I will discuss with him the testing results which all are showing improvement including the lower ammonia level with the lactulose she is on. She currently was much more comfortable in the ED although she says she still has pain. Patient and have been to the nurses station and asking the nurse several times about when they can go home. The patient says that she just wants to go home and sleep on her own bed. They're aware of the delays. Patient has been aware of all testing results and I recommended to continue the lactulose for her ammonia and to contact her provider on Tuesday morning about further pain management. I will give her a few of her oxycodone to get her through tomorrow but the family and patient are unsure of the doses. They do get their medications [facility] so I will write a prescription but have day nursing contact [facility] to confirm the dose and alter it as needed. Impression: Abdominal pain with history of hepatocellular carcinoma stable; out of medication for pain management Definitive disposition and diagnosis as appropriate pending reevaluation and review of above. abd Pain Score (Numeric/FACES): 10 - Related Data Allergies Allergy/AdvReac Type Severity Reaction Status Date / Time sulfamethoxazole Allergy Other Verified 04/17/19 10:34 [From Bactrim] trimethoprim [From Bactrim] Allergy Other Verified 04/17/19 10:34 Home Meds: Home Meds Furosemide [Lasix] 20 mg PO DAILY 02/14/16 [History] Sertraline [Zoloft] 100 mg PO DAILY 08/21/16 [History] Albuterol/Ipratropium [DuoNeb 3.0-0.5 MG/3 ML] 2.5 mg NEB Q6H 03/12/17 [History] LORazepam [Ativan] 1 mg PO TID PRN 03/12/17 [History] fentaNYL [Duragesic] 50 mcg TD Q72H 11/04/18 [History] Albuterol Sulfate [Proair Hfa] 1 puff INH QID 04/13/19 [History] Ascorbic Acid [Vitamin C] 1,000 mg PO DAILY 04/13/19 [History] Cholecalciferol (Vitamin D3) [Vitamin D3] 5,000 unit PO DAILY 04/13/19 [History] Cyanocobalamin (Vitamin B-12) [B-12] 1,000 mcg PO DAILY 04/13/19 [History] Ferrous Sulfate 325 mg PO DAILY 04/13/19 [History] Folic Acid 0.4 mg PO DAILY 04/13/19 [History] Levothyroxine 225 mcg PO DAILY 04/13/19 [History] Losartan [Cozaar] 50 mg PO BID 04/13/19 [History] Primidone 50 mg PO BEDTIME 04/13/19 [History] Thiamine HCl 250 mg PO DAILY 04/13/19 [History] hydroCHLOROthiazide [Hydrochlorothiazide] 25 mg PO DAILY 04/13/19 [History] oxyCODONE HCl [Oxycodone HCl] 10 mg PO Q4H PRN 04/13/19 [History] Past Medical History HEENT History: Reports: Other (See Below) Other HEENT History: has upper permanent dental bridge Cardiovascular History: Reports: Hypertension Respiratory History: Reports: COPD Gastrointestinal History: Reports: GERD, Hepatitis Other Gastrointestinal History: states has been treated for Hepatitis and is now clear Genitourinary History: Reports: UTI, 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 Musculoskeletal History: Reports: Fracture Other Musculoskeletal History: right ankle Neurological History: Reports: Other (See Below) Other Neuro History: essential tremor Psychiatric History: Reports: Anxiety, Depression Endocrine/Metabolic History: Reports: Hypothyroidism, Obesity/BMI 30+ Other Endocrine/Metabolic History: Hypothyroidism Hematologic History: Reports: Other (See Below) Other Hematologic History: currently has low platlets Immunologic History: Reports: None Oncologic (Cancer) History: Reports: Liver Other Oncologic History: currently receiving treatment Dermatologic History: Reports: None - Infectious Disease History Infectious Disease History: Reports: None Other Infectious Disease History: Pt has had treatment for Hep. C - Past Surgical History Head Surgeries/Procedures: Reports: None HEENT Surgical History: Reports: Naso-Sinus Surgery GI Surgical History: Reports: Bariatric Procedure, Cholecystectomy, Colon, Colonoscopy Female Surgical History: Reports: Hysterectomy, Tubal Ligation Musculoskeletal Surgical History: Reports: ORIF Other Musculoskeletal Surgeries/Procedures:: ORIF right ankle with bone graft- thinks she has "plastic" implants in her ankle Social & Family History - Family History Family Medical History: Noncontributory HEENT: Reports: None Cardiac: Reports: None Respiratory: Reports: COPD GI: Reports: None : Reports: None Endocrine/Metabolic: Reports: Diabetes, Type I, Diabetes, type II - Tobacco Use Smoking Status *Q: Current Every Day Smoker Years of Tobacco use: 40 Packs/Tins Daily: 1 - Caffeine Use Caffeine Use: Reports: Coffee Caffeine Use Comment: occasionally - Recreational Drug Use Recreational Drug Use: No ED ROS GENERAL - Review of Systems Review Of Systems: ROS reveals no pertinent complaints other than HPI. ED EXAM, GENERAL - Physical Exam Exam: See Below (see dictation) Course - Vital Signs Last Recorded V/S: Last Vital Signs Temp 36.3 C 05/05/19 19:07 Pulse 81 05/05/19 22:30 Resp 16 05/05/19 22:30 BP 131/83 05/05/19 22:30 Pulse Ox 97 05/05/19 22:30 - Orders/Labs/Meds Orders: Active Orders 24 hr Category Date Time Status Sodium Chloride 0.9% [Normal Saline] 500 ml Med 05/05/19 19:45 Active IV STAT Sodium Chloride 0.9% [Saline Flush] Med 05/05/19 19:34 Active 10 ml FLUSH ASDIRECTED PRN Sodium Chloride 0.9% [Saline Flush] Med 05/05/19 19:34 Active 2.5 ml FLUSH ASDIRECTED PRN fentaNYL [Duragesic] Med 05/05/19 19:45 Active 50 mcg TRDERM Q72H Saline Lock Insert [OM.PC] Stat Oth 05/05/19 19:33 Ordered Medication Orders Fentanyl (Duragesic) 50 mcg TRDERM Q72H SHARON Last Admin: 05/05/19 20:16 Dose: 50 mcg Sodium Chloride (Normal Saline) 500 mls @ 999 mls/hr IV STAT SHARON Last Admin: 05/05/19 19:59 Dose: 999 mls/hr Sodium Chloride (Saline Flush) 10 ml FLUSH ASDIRECTED PRN PRN Reason: Keep Vein Open Last Admin: 05/05/19 19:59 Dose: 10 ml Sodium Chloride (Saline Flush) 2.5 ml FLUSH ASDIRECTED PRN PRN Reason: Keep Vein Open Last Admin: 05/05/19 19:59 Dose: 2.5 ml Labs: Laboratory Tests 05/05/19 05/05/19 05/05/19 Range/Units 19:54 19:54 19:54 WBC 5.58 (4.0-11.0) K/uL RBC 3.79 L (4.30-5.90) M/uL Hgb 11.0 L (12.0-16.0) g/dL Hct 32.7 L (36.0-46.0) % MCV 86.3 (80.0-98.0) fL MCH 29.0 (27.0-32.0) pg MCHC 33.6 (31.0-37.0) g/dL RDW Std Deviation 44.9 (28.0-62.0) fl RDW Coeff of Varsha 15 (11.0-15.0) % Plt Count 115 L (150-400) K/uL MPV 8.90 (7.40-12.00) fL Neut % (Auto) 67.3 (48.0-80.0) % Lymph % (Auto) 14.0 L (16.0-40.0) % [place] % (Auto) 12.2 (0.0-15.0) % Eos % (Auto) 6.1 (0.0-7.0) % Baso % (Auto) 0.4 (0.0-1.5) % Neut # (Auto) 3.8 (1.4-5.7) K/uL Lymph # (Auto) 0.8 (0.6-2.4) K/uL [place] # (Auto) 0.7 (0.0-0.8) K/uL Eos # (Auto) 0.3 (0.0-0.7) K/uL Baso # (Auto) 0.0 (0.0-0.1) K/uL Nucleated RBC % 0.0 /100WBC Nucleated RBCs # 0 K/uL INR 1.12 Sodium 136 (136-145) mmol/L Potassium 3.7 (3.5-5.1) mmol/L Chloride 101 (98-107) mmol/L Carbon Dioxide 27.9 (21.0-32.0) mmol/L BUN 12 (7.0-18.0) mg/dL Creatinine 0.8 (0.6-1.0) mg/dL Est Cr Clr Drug Dosing 64.58 mL/min Estimated GFR (MDRD) > 60.0 ml/min Glucose 88 (74-106) mg/dL Calcium 8.5 (8.5-10.1) mg/dL Total Bilirubin 0.3 (0.2-1.0) mg/dL AST 74 H (15-37) IU/L ALT 39 (14-63) IU/L Alkaline Phosphatase 267 H (46-116) U/L Ammonia (19-54) ug/dL Total Protein 7.5 (6.4-8.2) g/dL Albumin 3.2 L (3.4-5.0) g/dL Globulin 4.3 H (2.6-4.0) g/dL Albumin/Globulin Ratio 0.7 L (0.9-1.6) Amylase 22 L (25-115) U/L Lipase 131 (73-393) U/L Urine Color Urine Appearance Urine pH (5.0-8.0) Ur Specific [place] (1.001-1.035) Urine Protein (NEGATIVE) mg/dL Urine Glucose (UA) (NEGATIVE) mg/dL Urine Ketones (NEGATIVE) mg/dL Urine Occult Blood (NEGATIVE) Urine Nitrite (NEGATIVE) Urine Bilirubin (NEGATIVE) Urine Urobilinogen (<2.0) EU/dL Ur Leukocyte Esterase (NEGATIVE) Ethyl Alcohol <3 mg/dL H. pylori IgG Antibody (NEG) 05/05/19 05/05/19 05/05/19 Range/Units 19:54 19:54 20:00 WBC (4.0-11.0) K/uL RBC (4.30-5.90) M/uL Hgb (12.0-16.0) g/dL Hct (36.0-46.0) % MCV (80.0-98.0) fL MCH (27.0-32.0) pg MCHC (31.0-37.0) g/dL RDW Std Deviation (28.0-62.0) fl RDW Coeff of Varsha (11.0-15.0) % Plt Count (150-400) K/uL MPV (7.40-12.00) fL Neut % (Auto) (48.0-80.0) % Lymph % (Auto) (16.0-40.0) % [place] % (Auto) (0.0-15.0) % Eos % (Auto) (0.0-7.0) % Baso % (Auto) (0.0-1.5) % Neut # (Auto) (1.4-5.7) K/uL Lymph # (Auto) (0.6-2.4) K/uL [place] # (Auto) (0.0-0.8) K/uL Eos # (Auto) (0.0-0.7) K/uL Baso # (Auto) (0.0-0.1) K/uL Nucleated RBC % /100WBC Nucleated RBCs # K/uL INR Sodium (136-145) mmol/L Potassium (3.5-5.1) mmol/L Chloride (98-107) mmol/L Carbon Dioxide (21.0-32.0) mmol/L BUN (7.0-18.0) mg/dL Creatinine (0.6-1.0) mg/dL Est Cr Clr Drug Dosing mL/min Estimated GFR (MDRD) ml/min Glucose (74-106) mg/dL Calcium (8.5-10.1) mg/dL Total Bilirubin (0.2-1.0) mg/dL AST (15-37) IU/L ALT (14-63) IU/L Alkaline Phosphatase (46-116) U/L Ammonia 105 H (19-54) ug/dL Total Protein (6.4-8.2) g/dL Albumin (3.4-5.0) g/dL Globulin (2.6-4.0) g/dL Albumin/Globulin Ratio (0.9-1.6) Amylase (25-115) U/L Lipase (73-393) U/L Urine Color YELLOW Urine Appearance CLEAR Urine pH 5.5 (5.0-8.0) Ur Specific [place] 1.025 (1.001-1.035) Urine Protein NEGATIVE (NEGATIVE) mg/dL Urine Glucose (UA) NEGATIVE (NEGATIVE) mg/dL Urine Ketones TRACE H (NEGATIVE) mg/dL Urine Occult Blood NEGATIVE (NEGATIVE) Urine Nitrite NEGATIVE (NEGATIVE) Urine Bilirubin NEGATIVE (NEGATIVE) Urine Urobilinogen 0.2 (<2.0) EU/dL Ur Leukocyte Esterase NEGATIVE (NEGATIVE) Ethyl Alcohol mg/dL H. pylori IgG Antibody NEGATIVE (NEG) Meds: Medications Generic Name Dose Route Start Last Admin Trade Name Freq PRN Reason Stop Dose Admin Fentanyl 50 mcg 05/05/19 19:45 05/05/19 20:16 Duragesic TRDERM 50 mcg Q72H SHARON Administration Sodium Chloride 500 mls @ 999 mls/hr 05/05/19 19:45 05/05/19 19:59 Normal Saline IV 999 mls/hr STAT SHARON Administration Sodium Chloride 10 ml 05/05/19 19:34 05/05/19 19:59 Saline Flush FLUSH 10 ml ASDIRECTED PRN Administration Keep Vein Open Sodium Chloride 2.5 ml 05/05/19 19:34 05/05/19 19:59 Saline Flush FLUSH 2.5 ml ASDIRECTED PRN Administration Keep Vein Open Discontinued Medications Generic Name Dose Route Start Last Admin Trade Name Freq PRN Reason Stop Dose Admin Hydromorphone HCl 1 mg 05/05/19 19:34 05/05/19 19:57 Dilaudid IVPUSH 05/05/19 19:35 1 mg ONETIME ONE Administration Hydromorphone HCl 1 mg 05/05/19 20:40 05/05/19 20:53 Dilaudid IVPUSH 05/05/19 20:41 1 mg ONETIME ONE Administration Hydromorphone HCl 0.5 mg 05/05/19 23:14 Dilaudid IVPUSH 05/05/19 23:15 ONETIME ONE Sodium Chloride Confirm 05/05/19 19:45 05/05/19 19:58 Normal Saline Administered 05/05/19 19:46 20 mls/hr Dose Administration 20 mls @ as directed .ROUTE .STK-MED ONE Iopamidol 100 ml 05/05/19 21:39 05/05/19 21:41 Isovue-370 (76%) IVPUSH 05/05/19 21:40 100 ml ONETIME ONE Administration Ondansetron HCl 4 mg 05/05/19 19:34 05/05/19 19:58 Zofran IVPUSH 05/05/19 19:35 4 mg ONETIME ONE Administration Pantoprazole Sodium 80 mg 05/05/19 19:34 05/05/19 19:58 Protonix Iv IVPUSH 05/05/19 19:35 80 mg .BOLUS ONE Administration Departure - Departure Time of Disposition: 23:16 Disposition: Home, Self-Care 01 Condition: Good Clinical Impression: Abdominal pain Qualifiers: Abdominal location: right upper quadrant Qualified Code(s): R10.11 - Right upper quadrant pain - Discharge Information Referrals: PCP,None [Primary Care Provider] - Forms: ED Department Discharge Additional Instructions: The following information is given to patients seen in the emergency department who are being discharged to home. This information is to outline your options for follow-up care. We provide all patients seen in our emergency department with a follow-up referral. The need for follow-up, as well as the timing and circumstances, are variable depending upon the specifics of your emergency department visit. If you don't have a primary care physician on staff, we will provide you with a referral. We always advise you to contact your personal physician following an emergency department visit to inform them of the circumstance of the visit and for follow-up with them and/or the need for any referrals to a consulting specialist. The emergency department will also refer you to a specialist when appropriate. This referral assures that you have the opportunity for followup care with a specialist. All of these measure are taken in an effort to provide you with optimal care, which includes your followup. Under all circumstances we always encourage you to contact your private physician who remains a resource for coordinating your care. When calling for followup care, please make the office aware that this follow-up is from your recent emergency room visit. If for any reason you are refused follow-up, please contact the [facility] emergency department at and ask to speak to the emergency department charge nurse. Primary care- [place] [address] Please fill your prescription at the pharmacy tomorrow when it opens and our nursing staff will confirm your doses and change as needed as you do not know what the doses are You have the refill of the fentanyl patch in place and push hydration and rest. Please contact her provider first thing Tuesday to discuss her pain management as this is something that needs to be addressed by the clinic provider and not the emergency department. Return to ER as needed and as discussed. Please keep all scheduled appointments. Please continue the lactulose your given for the ammonia level as it is significantly improved today - My Orders Last 24 Hours: My Active Orders 05/05/19 19:33 Saline Lock Insert [OM.PC] Stat 05/05/19 19:34 Sodium Chloride 0.9% [Saline Flush] 10 ml FLUSH ASDIRECTED PRN Sodium Chloride 0.9% [Saline Flush] 2.5 ml FLUSH ASDIRECTED PRN 05/05/19 19:45 Sodium Chloride 0.9% [Normal Saline] 500 ml IV STAT fentaNYL [Duragesic] 50 mcg TRDERM Q72H - Assessment/Plan Last 24 Hours: My Active Orders 05/05/19 19:33 Saline Lock Insert [OM.PC] Stat 05/05/19 19:34 Sodium Chloride 0.9% [Saline Flush] 10 ml FLUSH ASDIRECTED PRN Sodium Chloride 0.9% [Saline Flush] 2.5 ml FLUSH ASDIRECTED PRN 05/05/19 19:45 Sodium Chloride 0.9% [Normal Saline] 500 ml IV STAT fentaNYL [Duragesic] 50 mcg TRDERM Q72H
[2019-05-05] MEDS ORDERED: Sodium Chloride 0.9% 500 ML IV SCH (19:45)
[2019-05-05] MEDS ORDERED: Sodium Chloride 0.9% 20 ML ONE (19:45)
[2019-05-05] MEDS ORDERED: fentaNYL 50 MCG/HR Transdermal Patch TRDERM SCH (19:45)
[2019-05-05 20:31] LABS: CHLORIDE,CL 101 mmol/L (98-107); SODIUM,NA 136 mmol/L (136-145)
[2019-05-05] MEDS ORDERED: Iopamidol 755 Mg/ML 100 ML Bottle IVPUSH ONE (21:39)
[2019-05-05 22:32] VITALS: BP 131/83
--- NOTE | 2019-05-05 23:06 | CT ---
INDICATION: Abdominal pain COMPARISON: 07/05/2015 TECHNIQUE: CT examination of the abdomen and pelvis was performed with the uneventful intravenous administration of 100 cc of Isovue 370 while 3 mm thick axial sections were obtained from the lung bases through the pubic symphysis. Oral contrast was not administered. Please note that all CT scans at this facility use dose modulation, iterative reconstruction, and/or weight-based dosing when appropriate to reduce radiation dose to as low as reasonably achievable. FINDINGS: There is increased mild ascites. In the abdomen, the liver shows no change in the heterogeneous, partially calcified multi-cystic mass in the inferior aspect of the medial segment of the left lobe, segment 4B. This mass measures approximately 5.8 x 5.2 centimeters in diameter. 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 The left main portal vein is patent. There is no change in heterogeneous hypodensity in the anterior segment of the right lobe towards the dome, segment 8, consistent with tumor infiltration. The contour of the liver remains mildly nodular consistent with cirrhosis. Hepatic size is normal. Again seen are moderate esophageal and gastric varices. The spleen remains mildly enlarged, measuring 14.2 centimeters. The pancreas is again seen to be atrophic but otherwise normal in appearance. The adrenals are normal in appearance. The kidneys are normal in appearance. The gallbladder is normal in appearance. The abdominal aorta is normal in caliber with no sign of dilatation. There is improvement in mild aortocaval lymphadenopathy with a 2.1 by 1.3 centimeter diameter lymph node, previously 2.6 x 1.5 centimeters The stomach, loops of small bowel, and colon in the abdomen are normal in appearance. In the pelvis, the appendix is nonvisualized, but there is no sign of an inflammatory process in the area of the appendix. The loops of small bowel and colon in the pelvis are normal in appearance. The uterus is absent and the adnexal regions are normal in appearance. The urinary bladder is normal in appearance. There is no sign of pelvic or inguinal mass or adenopathy. The lung bases are clear. Again seen is mild scoliosis of the lumbar spine convex towards the left. Again seen is prominent disc degenerative disease at L4-5 and moderate disc degenerative disease throughout the rest of the lumbar spine. There is no change in the mild T12 compression fracture. IMPRESSION: Increase in mild ascites. 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 Stable heterogeneous hypodensity in the anterior segment of the right lobe of the liver consistent with additional malignancy. Slight improvement in mild retroperitoneal lymphadenopathy. Stable moderate enlargement of the spleen. Cirrhotic appearance of the liver with gastric and esophageal varices. CT of the pelvis shows changes of hysterectomy. Please note that all CT scans at this facility use dose modulation, iterative reconstruction, and/or weight-based dosing when appropriate to reduce radiation dose to as low as reasonably achievable. Dictated by Joey Bedolla MD @ May 05 2019 10:51PM Signed by Dr. Joey Bedolla @ May 05 2019 11:05PM
[2019-05-05] MEDS ORDERED: HYDROmorphone 2 MG/ML Syringe IVPUSH ONE (23:14)
== END 2019-05-05 23:35 | disposition home or self-care (01) ==
LOC: MW.ED 18:47
DX: R10.11 Right upper quadrant pain (principal); I10 Essential (primary) hypertension; J44.9 Chronic obstructive pulmonary disease, unspecified; F41.9 Anxiety disorder, unspecified; F32.9 Major depressive disorder, single episode, unspecified; E03.9 Hypothyroidism, unspecified; F17.210 Nicotine dependence, cigarettes, uncomplicated; Z88.2 Allergy status to sulfonamides; Z88.1 Allergy status to other antibiotic agents; Z79.899 Other long term (current) drug therapy; Z85.05 Personal history of malignant neoplasm of liver
CPT/HCPCS: 36415; 74177; 80053; 81003; 82140; 82150; 83690; 85025; 85610; 86677; 96361; 96374; 96375; 96376; 99284; A9270; C9113; G0480; J1170; J2405; J7040; Q9967

== ENCOUNTER 2019-06-06 17:23 | Emergency (ER) | payer BC ==
--- NOTE | 2019-06-06 17:43 | EDM.PDOC ---
ED HPI GENERAL MEDICAL PROBLEM - General Chief Complaint: General Stated Complaint: UNKNOWN Time Seen by Provider: 06/06/19 17:43 Source of Information: Reports: Patient, Other History Limitations: Reports: No Limitations - History of Present Illness INITIAL COMMENTS - FREE TEXT/NARRATIVE: HISTORY AND PHYSICAL: History of present illness: Patient is a 58-year-old female with liver cancer presents to the ED with complaint of RUQ pain. Her PCP, Dr. Dias called me regarding her care. He was concerned that she had been out of her fentanyl patches and thought someone may have taken them as she was not due for a refill. A friend a checked on her today and was concerned that she seemed altered. Patient had recently been started on lactulose and he was concerned about hepatic encephalopathy. After discussing with patient and her friend/caregiver, they had called the pharmacy and confirmed that that had only filled #3 fentanyl patches on May 25 rather than #[address] Dias thought had been prescribed. She was given a new prescription today for #10 patches. Patient states she has RUQ pain but denies nausea, vomiting, diarrhea, fevers, chills, chest pain, headache. She states she has been short of breath and cough the past couple of days, has not been using her nebulizer the past couple of days. Patient's friend/caregiver states she does not think that she is altered but seems "off" due to inadequate pain control and recent stress with her being sent to rehab for alcohol abuse. Patient is alert and oriented to person, place, and time on my evaluation. Patient sees her oncologist tomorrow. Review of systems: As per history of present illness and below otherwise all systems reviewed and negative. Past medical history: As per history of present illness and as reviewed below otherwise noncontributory. Surgical history: As per history of present illness and as reviewed below otherwise noncontributory. Social history: No reported history of drug or alcohol abuse. Family history: As per history of present illness and as reviewed below otherwise noncontributory. Physical exam: General: Patient sitting comfortably in no acute distress and nontoxic appearing HEENT: Atraumatic, normocephalic, pupils reactive, negative for conjunctival pallor or scleral icterus, mucous membranes moist, throat clear, neck supple, nontender, trachea midline. No meningeal signs. Lungs: Clear to auscultation, breath sounds equal bilaterally, chest nontender. Heart: S1S2, regular, negative for clicks, rubs, or overt murmur. Abdomen: Soft, nondistended, nontender. Negative for masses or hepatosplenomegaly. Negative for costovertebral tenderness. No rigidity, rebound , guarding. Pelvis: Stable nontender. Genitourinary: Deferred. Rectal: Deferred. Extremities: Atraumatic, negative for cords or calf pain. Neurovascular unremarkable. Neuro: Awake, alert, oriented. Cranial nerves II through XII unremarkable. Cerebellum unremarkable. Motor and sensory unremarkable throughout. Exam nonfocal. Notes: Patient requests to go home and put on her fentanyl patch and will follow up with Dr. Dias in clinic. Diagnostics: CBC, CMP, EKG, ammonia, CXR Therapeutics: 1L Normal Saline IV 2mg morphine IV 40mEq Potassium PO Prescriptions: Impression: RUQ pain, History of liver cancer, hypokalemia Plan: 1. Follow up with primary care provider 2. Return to ED as needed as discussed Definitive disposition and diagnosis as appropriate pending reevaluation and review of above. Abdomen Pain Score (Numeric/FACES): 8 - Related Data Allergies Allergy/AdvReac Type Severity Reaction Status Date / Time sulfamethoxazole Allergy Other Verified 06/06/19 17:31 [From Bactrim] trimethoprim [From Bactrim] Allergy Other Verified 06/06/19 17:31 Home Meds: Home Meds Furosemide [Lasix] 20 mg PO DAILY 02/14/16 [History] Sertraline [Zoloft] 100 mg PO DAILY 08/21/16 [History] Albuterol/Ipratropium [DuoNeb 3.0-0.5 MG/3 ML] 2.5 mg NEB Q6H 03/12/17 [History] LORazepam [Ativan] 1 mg PO TID PRN 03/12/17 [History] fentaNYL [Duragesic] 100 mcg TD Q72H 11/04/18 [History] Albuterol Sulfate [Proair Hfa] 1 puff INH QID 04/13/19 [History] Ascorbic Acid [Vitamin C] 1,000 mg PO DAILY 04/13/19 [History] Cholecalciferol (Vitamin D3) [Vitamin D3] 5,000 unit PO DAILY 04/13/19 [History] Cyanocobalamin (Vitamin B-12) [B-12] 1,000 mcg PO DAILY 04/13/19 [History] Ferrous Sulfate 325 mg PO DAILY 04/13/19 [History] Folic Acid 0.4 mg PO DAILY 04/13/19 [History] Levothyroxine 225 mcg PO DAILY 04/13/19 [History] Losartan [Cozaar] 50 mg PO BID 04/13/19 [History] Primidone 50 mg PO BEDTIME 04/13/19 [History] Thiamine HCl 250 mg PO DAILY 04/13/19 [History] hydroCHLOROthiazide [Hydrochlorothiazide] 25 mg PO DAILY 04/13/19 [History] Lactulose gm PO DAILY 06/06/19 [History] Past Medical History HEENT History: Reports: Other (See Below) Other HEENT History: has upper permanent dental bridge Cardiovascular History: Reports: Hypertension Respiratory History: Reports: COPD Gastrointestinal History: Reports: GERD, Hepatitis Other Gastrointestinal History: states has been treated for Hepatitis and is now clear Genitourinary History: Reports: UTI, Recurrent 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 Musculoskeletal History: Reports: Fracture Other Musculoskeletal History: right ankle Neurological History: Reports: Other (See Below) Other Neuro History: essential tremor Psychiatric History: Reports: Anxiety, Depression Endocrine/Metabolic History: Reports: Hypothyroidism, Obesity/BMI 30+ Other Endocrine/Metabolic History: Hypothyroidism Hematologic History: Reports: Other (See Below) Other Hematologic History: currently has low platlets Immunologic History: Reports: None Oncologic (Cancer) History: Reports: Liver Other Oncologic History: currently receiving treatment Dermatologic History: Reports: None - Infectious Disease History Infectious Disease History: Reports: None Other Infectious Disease History: Pt has had treatment for Hep. C - Past Surgical History Head Surgeries/Procedures: Reports: None HEENT Surgical History: Reports: Naso-Sinus Surgery GI Surgical History: Reports: Bariatric Procedure, Cholecystectomy, Colon, Colonoscopy Female Surgical History: Reports: Hysterectomy, Tubal Ligation Musculoskeletal Surgical History: Reports: ORIF Other Musculoskeletal Surgeries/Procedures:: ORIF right ankle with bone graft- thinks she has "plastic" implants in her ankle Social & Family History - Family History Family Medical History: Noncontributory HEENT: Reports: None Cardiac: Reports: None Respiratory: Reports: COPD GI: Reports: None : Reports: None Endocrine/Metabolic: Reports: Diabetes, Type I, Diabetes, type II - Caffeine Use Caffeine Use: Reports: Coffee Caffeine Use Comment: occasionally ED ROS GENERAL - Review of Systems Review Of Systems: ROS reveals no pertinent complaints other than HPI. ED EXAM, GENERAL - Physical Exam Exam: See Below (see dictation) Course - Vital Signs Last Recorded V/S: Last Vital Signs Temp 97.4 F 06/06/19 17:34 Pulse 75 06/06/19 19:04 Resp 18 06/06/19 19:04 BP 132/75 06/06/19 19:04 Pulse Ox 97 06/06/19 19:04 - Orders/Labs/Meds Orders: Active Orders 24 hr Category Date Time Status EKG Documentation Completion [RC] STAT Care 06/06/19 18:50 Active RT Aerosol Therapy [RC] ASDIRECTED Care 06/06/19 17:51 Active Sodium Chloride 0.9% [Saline Flush] Med 06/06/19 17:44 Active 10 ml FLUSH ASDIRECTED PRN Sodium Chloride 0.9% [Saline Flush] Med 06/06/19 17:44 Active 2.5 ml FLUSH ASDIRECTED PRN Saline Lock Insert [OM.PC] Stat Oth 06/06/19 17:43 Ordered Medication Orders Sodium Chloride (Saline Flush) 10 ml FLUSH ASDIRECTED PRN PRN Reason: Keep Vein Open Last Admin: 06/06/19 18:03 Dose: 10 ml Sodium Chloride (Saline Flush) 2.5 ml FLUSH ASDIRECTED PRN PRN Reason: Keep Vein Open Last Admin: 06/06/19 18:03 Dose: 2.5 ml Labs: Laboratory Tests 06/06/19 06/06/19 06/06/19 Range/Units 18:03 18:03 18:03 WBC 4.84 (4.0-11.0) K/uL RBC 3.91 L (4.30-5.90) M/uL Hgb 11.1 L (12.0-16.0) g/dL Hct 33.1 L (36.0-46.0) % MCV 84.7 (80.0-98.0) fL MCH 28.4 (27.0-32.0) pg MCHC 33.5 (31.0-37.0) g/dL RDW Std Deviation 42.0 (28.0-62.0) fl RDW Coeff of Varsha 14 (11.0-15.0) % Plt Count 89 L (150-400) K/uL MPV 9.20 (7.40-12.00) fL Neut % (Auto) 72.7 (48.0-80.0) % Lymph % (Auto) 15.1 L (16.0-40.0) % Wells % (Auto) 9.5 (0.0-15.0) % Eos % (Auto) 2.3 (0.0-7.0) % Baso % (Auto) 0.4 (0.0-1.5) % Neut # (Auto) 3.5 (1.4-5.7) K/uL Lymph # (Auto) 0.7 (0.6-2.4) K/uL Wells # (Auto) 0.5 (0.0-0.8) K/uL Eos # (Auto) 0.1 (0.0-0.7) K/uL Baso # (Auto) 0.0 (0.0-0.1) K/uL Nucleated RBC % 0.0 /100WBC Nucleated RBCs # 0 K/uL INR 1.44 Sodium 136 (136-145) mmol/L Potassium 2.6 L (3.5-5.1) mmol/L Chloride 97 L (98-107) mmol/L Carbon Dioxide 29.9 (21.0-32.0) mmol/L BUN 6 L (7.0-18.0) mg/dL Creatinine 0.7 (0.6-1.0) mg/dL Est Cr Clr Drug Dosing 73.80 mL/min Estimated GFR (MDRD) > 60.0 ml/min Glucose 108 H (74-106) mg/dL Calcium 8.7 (8.5-10.1) mg/dL Total Bilirubin 0.6 (0.2-1.0) mg/dL AST 52 H (15-37) IU/L ALT 20 (14-63) IU/L Alkaline Phosphatase 192 H (46-116) U/L Ammonia (19-54) ug/dL Total Protein 7.2 (6.4-8.2) g/dL Albumin 3.1 L (3.4-5.0) g/dL Globulin 4.1 H (2.6-4.0) g/dL Albumin/Globulin Ratio 0.8 L (0.9-1.6) 06/06/19 Range/Units 18:03 WBC (4.0-11.0) K/uL RBC (4.30-5.90) M/uL Hgb (12.0-16.0) g/dL Hct (36.0-46.0) % MCV (80.0-98.0) fL MCH (27.0-32.0) pg MCHC (31.0-37.0) g/dL RDW Std Deviation (28.0-62.0) fl RDW Coeff of Varsha (11.0-15.0) % Plt Count (150-400) K/uL MPV (7.40-12.00) fL Neut % (Auto) (48.0-80.0) % Lymph % (Auto) (16.0-40.0) % Wells % (Auto) (0.0-15.0) % Eos % (Auto) (0.0-7.0) % Baso % (Auto) (0.0-1.5) % Neut # (Auto) (1.4-5.7) K/uL Lymph # (Auto) (0.6-2.4) K/uL Wells # (Auto) (0.0-0.8) K/uL Eos # (Auto) (0.0-0.7) K/uL Baso # (Auto) (0.0-0.1) K/uL Nucleated RBC % /100WBC Nucleated RBCs # K/uL INR Sodium (136-145) mmol/L Potassium (3.5-5.1) mmol/L Chloride (98-107) mmol/L Carbon Dioxide (21.0-32.0) mmol/L BUN (7.0-18.0) mg/dL Creatinine (0.6-1.0) mg/dL Est Cr Clr Drug Dosing mL/min Estimated GFR (MDRD) ml/min Glucose (74-106) mg/dL Calcium (8.5-10.1) mg/dL Total Bilirubin (0.2-1.0) mg/dL AST (15-37) IU/L ALT (14-63) IU/L Alkaline Phosphatase (46-116) U/L Ammonia 29 (19-54) ug/dL Total Protein (6.4-8.2) g/dL Albumin (3.4-5.0) g/dL Globulin (2.6-4.0) g/dL Albumin/Globulin Ratio (0.9-1.6) Meds: Medications Generic Name Dose Route Start Last Admin Trade Name Freq PRN Reason Stop Dose Admin Sodium Chloride 10 ml 06/06/19 17:44 06/06/19 18:03 Saline Flush FLUSH 10 ml ASDIRECTED PRN Administration Keep Vein Open Sodium Chloride 2.5 ml 06/06/19 17:44 06/06/19 18:03 Saline Flush FLUSH 2.5 ml ASDIRECTED PRN Administration Keep Vein Open Discontinued Medications Generic Name Dose Route Start Last Admin Trade Name Freq PRN Reason Stop Dose Admin Albuterol/Ipratropium 3 ml 06/06/19 17:51 06/06/19 17:56 Duoneb 3.0-0.5 Mg/3 Ml NEB 06/06/19 17:52 3 ml ONETIME ONE Administration Sodium Chloride 1,000 mls @ 999 mls/hr 06/06/19 17:44 06/06/19 18:03 Normal Saline IV 06/06/19 18:44 999 mls/hr STAT ONE Administration Morphine Sulfate 2 mg 06/06/19 17:44 06/06/19 18:03 Morphine IVPUSH 06/06/19 17:45 2 mg ONETIME ONE Administration Potassium Chloride 40 meq 06/06/19 18:50 06/06/19 18:53 Potassium Chloride PO 06/06/19 18:51 40 meq ONETIME ONE Administration Departure - Departure Time of Disposition: 19:13 Disposition: Home, Self-Care 01 Condition: Good Clinical Impression: Hypokalemia, RUQ pain, History of liver cancer - Discharge Information Referrals: PCP,None [Primary Care Provider] - Forms: ED Department Discharge Additional Instructions: The following information is given to patients seen in the emergency department who are being discharged to home. This information is to outline your options for follow-up care. We provide all patients seen in our emergency department with a follow-up referral. The need for follow-up, as well as the timing and circumstances, are variable depending upon the specifics of your emergency department visit. If you don't have a primary care physician on staff, we will provide you with a referral. We always advise you to contact your personal physician following an emergency department visit to inform them of the circumstance of the visit and for follow-up with them and/or the need for any referrals to a consulting specialist. The emergency department will also refer you to a specialist when appropriate. This referral assures that you have the opportunity for follow-up care with a specialist. All of these measure are taken in an effort to provide you with optimal care, which includes your follow-up. Under all circumstances we always encourage you to contact your private physician who remains a resource for coordinating your care. When calling for follow-up care, please make the office aware that this follow-up is from your recent emergency room visit. If for any reason you are refused follow-up, please contact the Emergency Department at and asked to speak to the emergency department charge nurse. Primary [facility] [address] [place] [id number] [place] [address] 1. Follow up with primary care provider 2. Return to ED as needed as discussed - My Orders Last 24 Hours: My Active Orders 06/06/19 17:43 Saline Lock Insert [OM.PC] Stat 06/06/19 17:44 Sodium Chloride 0.9% [Saline Flush] 10 ml FLUSH ASDIRECTED PRN Sodium Chloride 0.9% [Saline Flush] 2.5 ml FLUSH ASDIRECTED PRN 06/06/19 17:51 RT Aerosol Therapy [RC] ASDIRECTED 06/06/19 18:50 EKG Documentation Completion [RC] STAT - Assessment/Plan Last 24 Hours: My Active Orders 06/06/19 17:43 Saline Lock Insert [OM.PC] Stat 06/06/19 17:44 Sodium Chloride 0.9% [Saline Flush] 10 ml FLUSH ASDIRECTED PRN Sodium Chloride 0.9% [Saline Flush] 2.5 ml FLUSH ASDIRECTED PRN 06/06/19 17:51 RT Aerosol Therapy [RC] ASDIRECTED 06/06/19 18:50 EKG Documentation Completion [RC] STAT
[2019-06-06] MEDS ORDERED: Sodium Chloride 0.9% 10 ML Syringe FLUSH PRN (17:44)
[2019-06-06] MEDS ORDERED: Sodium Chloride 0.9% 1,000 ML IV ONE (17:44)
[2019-06-06] MEDS ORDERED: Sodium Chloride 0.9% 2.5 ML Syringe FLUSH PRN (17:44)
[2019-06-06] MEDS ORDERED: Morphine 4 MG/ML Syringe IVPUSH ONE (17:44)
[2019-06-06] MEDS ORDERED: Albuterol/Ipratropium 3.0-0.5 MG/3 ML Neb Soln NEB ONE (17:51)
[2019-06-06 18:37] LABS: CHLORIDE,CL 97 mmol/L (98-107); SODIUM,NA 136 mmol/L (136-145)
[2019-06-06] MEDS ORDERED: Potassium Chloride 10% 20 MEQ/15 ML Soln 30 ML UD Cup PO ONE (18:50)
--- NOTE | 2019-06-06 19:03 | CR ---
HISTORY: Shortness of breath COMPARISON: 05/25/2019 FINDINGS: A portable erect AP view of the chest was obtained at 18 20 hours. The lungs remain clear. No focal or diffuse infiltrates are present. The heart remains normal in size. The mediastinum is normal in appearance. The osseous structures are normal in appearance for the patient`s age. IMPRESSION: Normal portable chest single view. Dictated by Joey Bedolla MD @ Jun 06 2019 6:59PM Signed by Dr. Joey Bedolla @ Jun 06 2019 7:00PM
[2019-06-06 19:05] VITALS: BP 132/75
[2019-06-07] MEDS ORDERED: NIVOLUMAB IV SCH (09:00)
== END 2019-06-06 19:24 | disposition home or self-care (01) ==
LOC: MW.ED 17:23
DX: R10.11 Right upper quadrant pain (principal); E87.6 Hypokalemia; I10 Essential (primary) hypertension; J44.9 Chronic obstructive pulmonary disease, unspecified; K21.9 Gastro-esophageal reflux disease without esophagitis; E03.9 Hypothyroidism, unspecified; F41.9 Anxiety disorder, unspecified; F32.9 Major depressive disorder, single episode, unspecified; Z85.05 Personal history of malignant neoplasm of liver; Z88.2 Allergy status to sulfonamides; Z88.1 Allergy status to other antibiotic agents; Z79.899 Other long term (current) drug therapy
CPT/HCPCS: 36415; 71045; 80053; 82140; 85025; 85610; 93005; 94640; 96361; 96374; 99283; A9270; J2270; J7040; 99284; J7620-GY

== ENCOUNTER 2019-07-09 12:27 | Emergency (ER) | payer BC, OTHER ==
[2019-07-09] MEDS ORDERED: fentaNYL 100 MCG/HR Transdermal Patch TRDERM SCH (12:45)
--- NOTE | 2019-07-09 12:49 | EDM.PDOC ---
ED HPI GENERAL MEDICAL PROBLEM - General Chief Complaint: General Stated Complaint: ONCOLOGY PT--NOT FEELING WELL Time Seen by Provider: 07/09/19 12:34 Source of Information: Reports: Patient History Limitations: Reports: No Limitations - History of Present Illness INITIAL COMMENTS - FREE TEXT/NARRATIVE: HISTORY AND PHYSICAL: History of present illness: Patient is a 59-year-old female who presents to the emergency room requesting refill on her pain medication. She has a history of liver cancer and is currently receiving treatment for this. Dr Dias is currently her PCP, and typically refills her chronic pain management medications. She states she is currently out of her lorazepam and fentanyl patches. She has been attempting to make an appointment with his office but is not able to be seen until 07/25/19. She states that they are unable to call in her prescriptions. She does have complaints of abdominal pain but believes this is due to not having her medications available. Patient denies any fever, chills, headache, change in vision, syncope or near syncope. Denies any chest pain, back pain, shortness of breath or cough. Denies any nausea, vomiting, diarrhea, constipation or dysuria. Has not noted any blood in urine or stool. Patient has been eating and drinking appropriately. Review of systems: As per history of present illness and below otherwise all systems reviewed and negative. Past medical history: As per history of present illness and as reviewed below otherwise noncontributory. Surgical history: As per history of present illness and as reviewed below otherwise noncontributory. Social history: See social history for further information Family history: As per history of present illness and as reviewed below otherwise noncontributory. Physical exam: General: Well-developed and well-nourished 59-year-old female. Alert and oriented. Nontoxic appearing and mildly uncomfortable due to pain. HEENT: Atraumatic, normocephalic, pupils equal and reactive bilaterally, negative for conjunctival pallor or scleral icterus, mucous membranes moist, trachea midline. No drooling or trismus noted. No meningeal signs. No hot potato voice noted. Lungs: Clear to auscultation, breath sounds equal bilaterally, chest nontender. Heart: S1S2, regular rate and rhythm without overt murmur Abdomen: Soft, nondistended, generalized tenderness throughout. Negative for masses. Negative for costovertebral tenderness. Pelvis: Stable nontender. Skin: Intact, warm, dry. No lesions or rashes noted. Extremities: Atraumatic, moves all extremities per self without difficulty or deficits, negative for cords or calf pain. Neurovascular unremarkable. Neuro: Awake, alert, oriented. Cranial nerves II through XII unremarkable. Cerebellum unremarkable. Motor and sensory unremarkable throughout. Exam nonfocal. Notes: Patient declines the need for any diagnostics. She states that she would like some form of pain management until she is able to see her primary care provider to get her in for medication refill. Fentanyl patch given while here. Limited supply of her lorazepam was sent to [facility]. Supportive care measures were reviewed and discussed. Voices understanding and is agreeable to plan of care. Denies any further questions or concerns at this time. Diagnostics: Declines Therapeutics: Fentyl Patch 100mcg Prescription: Lorazepam (#20) Fentanyl (#5) Impression: Encounter for pain management Encounter for medication refill Plan: 1. Please take your medications as directed. Keep the Fentanyl patch on for 72 hours 2. Follow-up with Dr. Dias as you have arranged. 3. Return to the ER as needed and as discussed. Definitive disposition and diagnosis as appropriate pending reevaluation and review of above. Abdominal Pain Score (Numeric/FACES): 8 - Related Data Allergies Allergy/AdvReac Type Severity Reaction Status Date / Time sulfamethoxazole Allergy Other Verified 07/09/19 12:33 [From Bactrim] trimethoprim [From Bactrim] Allergy Other Verified 07/09/19 12:33 Home Meds: Home Meds Furosemide [Lasix] 20 mg PO DAILY 02/14/16 [History] Sertraline [Zoloft] 100 mg PO DAILY 08/21/16 [History] Albuterol/Ipratropium [DuoNeb 3.0-0.5 MG/3 ML] 2.5 mg NEB Q6H 03/12/17 [History] LORazepam [Ativan] 1 mg PO TID PRN 03/12/17 [History] fentaNYL [Duragesic] 100 mcg TD Q72H 11/04/18 [History] Albuterol Sulfate [Proair Hfa] 1 puff INH QID 04/13/19 [History] Ascorbic Acid [Vitamin C] 1,000 mg PO DAILY 04/13/19 [History] Cholecalciferol (Vitamin D3) [Vitamin D3] 5,000 unit PO DAILY 04/13/19 [History] Cyanocobalamin (Vitamin B-12) [B-12] 1,000 mcg PO DAILY 04/13/19 [History] Ferrous Sulfate 325 mg PO DAILY 04/13/19 [History] Folic Acid 0.4 mg PO DAILY 04/13/19 [History] Levothyroxine 225 mcg PO DAILY 04/13/19 [History] Losartan [Cozaar] 50 mg PO BID 04/13/19 [History] Primidone 50 mg PO BEDTIME 04/13/19 [History] Thiamine HCl 250 mg PO DAILY 04/13/19 [History] hydroCHLOROthiazide [Hydrochlorothiazide] 25 mg PO DAILY 04/13/19 [History] Lactulose gm PO DAILY 06/06/19 [History] LORazepam [Ativan] 1 mg PO TID PRN #15 tablet 07/09/19 [Rx] Past Medical History HEENT History: Reports: Other (See Below) Other HEENT History: has upper permanent dental bridge Cardiovascular History: Reports: Hypertension Respiratory History: Reports: COPD Gastrointestinal History: Reports: GERD, Hepatitis Other Gastrointestinal History: states has been treated for Hepatitis and is now clear Genitourinary History: Reports: UTI, Recurrent 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 Musculoskeletal History: Reports: Fracture Other Musculoskeletal History: right ankle Neurological History: Reports: Other (See Below) Other Neuro History: essential tremor Psychiatric History: Reports: Anxiety, Depression Endocrine/Metabolic History: Reports: Hypothyroidism, Obesity/BMI 30+ Other Endocrine/Metabolic History: Hypothyroidism Hematologic History: Reports: Other (See Below) Other Hematologic History: currently has low platlets Immunologic History: Reports: None Oncologic (Cancer) History: Reports: Liver Other Oncologic History: currently receiving treatment Dermatologic History: Reports: None - Infectious Disease History Infectious Disease History: Reports: Chicken Pox, Measles, Mumps Other Infectious Disease History: Pt has had treatment for Hep. C - Past Surgical History Head Surgeries/Procedures: Reports: None HEENT Surgical History: Reports: Naso-Sinus Surgery GI Surgical History: Reports: Bariatric Procedure, Cholecystectomy, Colon, Colonoscopy Female Surgical History: Reports: Hysterectomy, Tubal Ligation Musculoskeletal Surgical History: Reports: ORIF Other Musculoskeletal Surgeries/Procedures:: ORIF right ankle with bone graft- thinks she has "plastic" implants in her ankle Social & Family History - Family History Family Medical History: Noncontributory HEENT: Reports: None Cardiac: Reports: None Respiratory: Reports: COPD GI: Reports: None : Reports: None Endocrine/Metabolic: Reports: Diabetes, Type I, Diabetes, type II - Tobacco Use Smoking Status *Q: Current Every Day Smoker Years of Tobacco use: 25 Packs/Tins Daily: 0.5 - Caffeine Use Caffeine Use: Reports: None Caffeine Use Comment: occasionally - Recreational Drug Use Recreational Drug Use: No ED ROS GENERAL - Review of Systems Review Of Systems: ROS reveals no pertinent complaints other than HPI. ED EXAM, GENERAL - Physical Exam Exam: See Below (See dictation) Course - Vital Signs Last Recorded V/S: Last Vital Signs Temp 97.1 F 07/09/19 12:33 Pulse 80 07/09/19 12:33 Resp 22 H 07/09/19 12:33 BP 153/99 H 07/09/19 12:33 Pulse Ox 95 07/09/19 12:33 - Orders/Labs/Meds Orders: Active Orders 24 hr Category Date Time Status fentaNYL [Duragesic] Med 07/09/19 12:45 Active 100 mcg TRDERM Q72H Medication Orders Fentanyl (Duragesic) 100 mcg TRDERM Q72H SHARON Last Admin: 07/09/19 13:00 Dose: 100 mcg Meds: Medications Generic Name Dose Route Start Last Admin Trade Name Freq PRN Reason Stop Dose Admin Fentanyl 100 mcg 07/09/19 12:45 07/09/19 13:00 Duragesic TRDERM 100 mcg Q72H [facility] Administration Departure - Departure Time of Disposition: 13:06 Disposition: Home, Self-Care 01 Clinical Impression: Encounter for medication refill, History of liver cancer, Encounter for pain management - Discharge Information Prescriptions: LORazepam [Ativan] 1 mg PO TID PRN #15 tablet PRN Reason: Anxiety Instructions: Acute Pain, Adult Referrals: PCP,Unknown [Primary Care Provider] - Forms: ED Department Discharge Additional Instructions: The following information is given to patients seen in the emergency department who are being discharged to home. This information is to outline your options for follow-up care. We provide all patients seen in our emergency department with a follow-up referral. The need for follow-up, as well as the timing and circumstances, are variable depending upon the specifics of your emergency department visit. If you don't have a primary care physician on staff, we will provide you with a referral. We always advise you to contact your personal physician following an emergency department visit to inform them of the circumstance of the visit and for follow-up with them and/or the need for any referrals to a consulting specialist. The emergency department will also refer you to a specialist when appropriate. This referral assures that you have the opportunity for follow-up care with a specialist. All of these measure are taken in an effort to provide you with optimal care, which includes your follow-up. Under all circumstances we always encourage you to contact your private physician who remains a resource for coordinating your care. When calling for follow-up care, please make the office aware that this follow-up is from your recent emergency room visit. If for any reason you are refused follow-up, please contact the [facility] Emergency Department at and asked to speak to the emergency department charge nurse. [facility] [address] [place] [id number] [place] [address] 1. Please take your medications as directed. Keep the Fentanyl patch on for 72 hours 2. Follow-up with Dr. Dias as you have arranged. 3. Return to the ER as needed and as discussed. - My Orders Last 24 Hours: My Active Orders 07/09/19 12:45 fentaNYL [Duragesic] 100 mcg TRDERM Q72H - Assessment/Plan Last 24 Hours: My Active Orders 07/09/19 12:45 fentaNYL [Duragesic] 100 mcg TRDERM Q72H
[2019-07-09 13:40] VITALS: BP 162/97; PULSE 67
== END 2019-07-09 13:30 | disposition home or self-care (01) ==
LOC: MW.ED 12:27
DX: R10.9 Unspecified abdominal pain (principal); Z76.0 Encounter for issue of repeat prescription; C22.9 Malignant neoplasm of liver, not specified as primary or secondary; I10 Essential (primary) hypertension; J44.9 Chronic obstructive pulmonary disease, unspecified; K21.9 Gastro-esophageal reflux disease without esophagitis; F41.9 Anxiety disorder, unspecified; F32.9 Major depressive disorder, single episode, unspecified; E03.9 Hypothyroidism, unspecified; F17.210 Nicotine dependence, cigarettes, uncomplicated; Z88.1 Allergy status to other antibiotic agents; Z88.2 Allergy status to sulfonamides; E66.9 Obesity, unspecified; Z79.899 Other long term (current) drug therapy; Z98.84 Bariatric surgery status; Z90.49 Acquired absence of other specified parts of digestive tract; Z98.51 Tubal ligation status; Z90.710 Acquired absence of both cervix and uterus
CPT/HCPCS: 99283; A9270

== ENCOUNTER 2019-07-25 14:56 | Observation (INO) | payer BC ==
[2019-07-25] MEDS ORDERED: HYDROmorphone 2 MG/ML Syringe IVPUSH PRN (15:06)
[2019-07-25] MEDS ORDERED: Ondansetron 4 MG/2 ML SDV IVPUSH PRN (15:06)
[2019-07-25] MEDS ORDERED: Albuterol/Ipratropium 3.0-0.5 MG/3 ML Neb Soln NEB PRN (15:06)
[2019-07-25] MEDS ORDERED: Sodium Chloride 0.9% 2.5 ML Syringe FLUSH PRN (15:06)
[2019-07-25] MEDS ORDERED: Lidocaine 1% 10 ML MDV INJECT ONE (15:15)
[2019-07-25] MEDS ORDERED: Lidocaine 1% 20 ML MDV INJECT ONE (15:30)
[2019-07-25 16:06] LABS: CHLORIDE,CL 100 mmol/L (98-107); SODIUM,NA 134 mmol/L (136-145)
[2019-07-25] MEDS ORDERED: Furosemide 40 MG/4 ML VIAL IVPUSH ONE (16:30)
--- NOTE | 2019-07-25 16:30 | PCM.HP.2 ---
H&P History of Present Illness - General Date of Service: 07/25/19 Admit Problem/Dx: Admission Diagnosis/Problem Admission Diagnosis/Problem Ascites Source of Information: Patient, Old Records History Limitations: Reports: No Limitations - History of Present Illness Initial Comments - Free Text/Narative: This 59 year old female with pmh of Hepatitis C, metastatic liver carcinoma, COPD, portal vein thrombus and pmh of alcohol abuse presented to her PCP today with complaints of worsening abdominal pain and being out of her pain medications. She reports she has been out of her Fentanyl patch. She reports she has been out of her Lasix for about 1 week as well. She reports increase in abdominal bloating and leg swelling. Reports increase in abdominal pain. She denies fevers or chills. Reports shortness of breath due to increase abdominal girth, no chest pain. No black or bloody bowel movements. She has been eating and drinking well. Denies and urinary concerns. Denies confusion. Requesting pain medication for her abdominal pain. Denies current alcohol use, has not smoked in the past few days as her SOB has increased, no recreational drug use. Labwork to be obtained. Abdomen Pain Score (Numeric/FACES): 7 - Related Data Allergies/Adverse Reactions: Allergies Allergy/AdvReac Type Severity Reaction Status Date / Time sulfamethoxazole Allergy Other Verified 07/25/19 15:08 [From Bactrim] trimethoprim [From Bactrim] Allergy Other Verified 07/25/19 15:08 Home Medications: Home Meds Furosemide [Lasix] 20 mg PO DAILY 02/14/16 [History] Sertraline [Zoloft] 100 mg PO DAILY 08/21/16 [History] Albuterol/Ipratropium [DuoNeb 3.0-0.5 MG/3 ML] 2.5 mg NEB Q6H 03/12/17 [History] LORazepam [Ativan] 1 mg PO TID PRN 03/12/17 [History] fentaNYL [Duragesic] 100 mcg TD Q72H 11/04/18 [History] Albuterol Sulfate [Proair Hfa] 1 puff INH QID 04/13/19 [History] Ascorbic Acid [Vitamin C] 1,000 mg PO DAILY 04/13/19 [History] Cholecalciferol (Vitamin D3) [Vitamin D3] 5,000 unit PO DAILY 04/13/19 [History] Cyanocobalamin (Vitamin B-12) [B-12] 1,000 mcg PO DAILY 04/13/19 [History] Ferrous Sulfate 325 mg PO DAILY 04/13/19 [History] Folic Acid 0.4 mg PO DAILY 04/13/19 [History] Levothyroxine 200 mcg PO DAILY 04/13/19 [History] Losartan [Cozaar] 50 mg PO BID 04/13/19 [History] Primidone 50 mg PO BEDTIME 04/13/19 [History] Thiamine HCl 250 mg PO DAILY 04/13/19 [History] hydroCHLOROthiazide [Hydrochlorothiazide] 25 mg PO DAILY 04/13/19 [History] Lactulose 10 gm PO BID 06/06/19 [History] fentaNYL [Fentanyl] 1 each TD ASDIRECTED #5 patch.[id number] 07/09/19 [Rx] LORazepam [Ativan] 2 mg PO TID PRN 07/25/19 [History] Rivaroxaban [Xarelto] 20 mg PO DAILY 07/25/19 [History] busPIRone HCl [Buspirone HCl] 15 mg PO BID 07/25/19 [History] traZODone HCl [Trazodone HCl] 100 mg PO BEDTIME PRN 07/25/19 [History] Past Medical History HEENT History: Reports: Other (See Below) Other HEENT History: has upper permanent dental bridge Cardiovascular History: Reports: Hypertension Respiratory History: Reports: COPD Gastrointestinal History: Reports: Cirrhosis, Hepatitis, Other (See Below) ( Grade 1 esophageal varices, portal vein thrombus) Other Gastrointestinal History: states has been treated for Hepatitis and is now clear Genitourinary History: Reports: UTI, Recurrent 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/BYN History: 4 Musculoskeletal History: Reports: Fracture Other Musculoskeletal History: right ankle Neurological History: Reports: Other (See Below) Other Neuro History: essential tremor Psychiatric History: Reports: Anxiety, Depression Endocrine/Metabolic History: Reports: Hypothyroidism, Obesity/BMI 30+ Hematologic History: Reports: Other (See Below) Other Hematologic History: currently has low platlets Immunologic History: Reports: None Oncologic (Cancer) History: Reports: Liver Other Oncologic History: currently receiving treatment Dermatologic History: Reports: None - Infectious Disease History Infectious Disease History: Reports: Chicken Pox, Measles, Mumps Other Infectious Disease History: Pt has had treatment for Hep. C - Past Surgical History Head Surgeries/Procedures: Reports: None GI Surgical History: Reports: Bariatric Procedure, Cholecystectomy, Colon, Colonoscopy Female Surgical History: Reports: Hysterectomy, Tubal Ligation Musculoskeletal Surgical History: Reports: ORIF Other Musculoskeletal Surgeries/Procedures:: ORIF right ankle with bone graft- thinks she has "plastic" implants in her ankle Social & Family History - Family History Family Medical History: Noncontributory HEENT: Reports: None Cardiac: Reports: None Respiratory: Reports: COPD GI: Reports: None : Reports: None Endocrine/Metabolic: Reports: Diabetes, Type I, Diabetes, type II - Caffeine Use Caffeine Use: Reports: None Caffeine Use Comment: occasionally - Alcohol Use Alcohol Use History: Yes Alcohol Use Comment: has not used in years, last admission 2016 for alcohol abuse and detox - Living Situation & Occupation Living situation: Reports: H&P Review of Systems - Review of Systems: Review Of Systems: See Below General: Reports: No Symptoms. Denies: Fever, Chills, Malaise HEENT: Reports: No Symptoms. Denies: Headaches, Sinus Congestion, Vertigo Pulmonary: Reports: Shortness of Breath, Wheezing (intermittent) Cardiovascular: Reports: No Symptoms. Denies: Chest Pain Gastrointestinal: Reports: Abdominal Pain, Distension. Denies: Black Stool, Bloody Stool, Constipation, Diarrhea, Decreased Appetite, Hematemesis, Nausea, Vomiting Genitourinary: Reports: No Symptoms. Denies: Dysuria, Frequency, Burning Musculoskeletal: Reports: No Symptoms Skin: Reports: No Symptoms Psychiatric: Reports: No Symptoms Neurological: Reports: No Symptoms. Denies: Confusion Hematologic/Lymphatic: Reports: No Symptoms Immunologic: Reports: No Symptoms Exam - Exam Exam: See Below - Vital Signs Vital Signs: Last Vital Signs Temp 97.2 F 07/25/19 15:04 Pulse 80 07/25/19 15:04 Resp 20 07/25/19 15:04 BP 140/86 07/25/19 15:04 Pulse Ox 97 07/25/19 15:04 - Exam General: Alert, Oriented, Cooperative HEENT: Conjunctiva Clear, Mucosa Moist & [place], Posterior Pharynx Clear Lungs: Wheezing (expiratory wheezing) Cardiovascular: Regular Rate, Regular Rhythm, Normal S1, Normal S2 GI/Abdominal Exam: Normal Bowel Sounds, Distended, Tender, Hepatomegaly, Other ( ascites). No: Guarding Back Exam: Normal Inspection, Full Range of Motion Extremities: Normal Inspection, Normal Range of Motion, Non-Tender, Pedal Edema (+3 pitting edema BLE extending distally from hips to feet) Skin: Warm, Dry Neuro Extensive - Mental Status: Alert, Oriented x3 Neuro Extensive - Motor, Sensory, Reflexes: CN II-XII Intact Psychiatric: Alert, Normal Affect, Normal Mood - Patient Data Lab Results Last 24 hrs: Laboratory Results - last 24 hr 07/25/19 07/25/19 07/25/19 Range/Units 15:27 15:27 15:27 WBC 5.03 (4.0-11.0) K/uL RBC 4.23 L (4.30-5.90) M/uL Hgb 11.4 L (12.0-16.0) g/dL Hct 34.6 L (36.0-46.0) % MCV 81.8 (80.0-98.0) fL MCH 27.0 (27.0-32.0) pg MCHC 32.9 (31.0-37.0) g/dL RDW Std Deviation 43.9 (28.0-62.0) fl RDW Coeff of Varsha 15 (11.0-15.0) % Plt Count 91 L (150-400) K/uL MPV 9.30 (7.40-12.00) fL Neut % (Auto) 68.2 (48.0-80.0) % Lymph % (Auto) 12.7 L (16.0-40.0) % [place] % (Auto) 12.3 (0.0-15.0) % Eos % (Auto) 6.6 (0.0-7.0) % Baso % (Auto) 0.2 (0.0-1.5) % Neut # (Auto) 3.4 (1.4-5.7) K/uL Lymph # (Auto) 0.6 (0.6-2.4) K/uL [place] # (Auto) 0.6 (0.0-0.8) K/uL Eos # (Auto) 0.3 (0.0-0.7) K/uL Baso # (Auto) 0.0 (0.0-0.1) K/uL Nucleated RBC % 0.0 /100WBC Nucleated RBCs # 0 K/uL INR 1.37 APTT 35.6 H (18.6-31.3) SEC Sodium 134 L (136-145) mmol/L Potassium 3.5 (3.5-5.1) mmol/L Chloride 100 (98-107) mmol/L Carbon Dioxide 27.4 (21.0-32.0) mmol/L BUN 8 (7.0-18.0) mg/dL Creatinine 0.7 (0.6-1.0) mg/dL Est Cr Clr Drug Dosing TNP Estimated GFR (MDRD) > 60.0 ml/min Glucose 96 (74-106) mg/dL Calcium 9.0 (8.5-10.1) mg/dL Total Bilirubin 0.6 (0.2-1.0) mg/dL AST 54 H (15-37) IU/L ALT 11 L (14-63) IU/L Alkaline Phosphatase 225 H (46-116) U/L Total Protein 7.0 (6.4-8.2) g/dL Albumin 2.5 L (3.4-5.0) g/dL Globulin 4.5 H (2.6-4.0) g/dL Albumin/Globulin Ratio 0.6 L (0.9-1.6) Result Diagrams: 07/25/19 15:27 07/25/19 15:27 - Problem List (1) Ascites SNOMED Code(s): 641522282 ICD Code: R18.8 - OTHER ASCITES Status: Acute Current Visit: Yes Qualifiers: Ascites type: other type Qualified Code(s): R18.8 - Other ascites (2) Abdominal pain SNOMED Code(s): 48160300 ICD Code: R10.9 - UNSPECIFIED ABDOMINAL PAIN Status: Acute Current Visit : No Qualifiers: Abdominal location: right upper quadrant Qualified Code(s): R10.11 - Right upper quadrant pain (3) Portal vein thrombosis SNOMED Code(s): 79786514 ICD Code: I81 - PORTAL VEIN THROMBOSIS Status: Chronic Current Visit: Yes (4) Anticoagulation adequate SNOMED Code(s): 546754946, 275637136 ICD Code: Z79.01 - LONGTERM (CURRENT) USE OF ANTICOAGULANTS Status: Chronic Current Visit: Yes (5) Cirrhosis of liver SNOMED Code(s): 24656115 ICD Code: K74.60 - UNSPECIFIED CIRRHOSIS OF LIVER Status: Chronic Current Visit: No Qualifiers: Ascites presence: with ascites (6) Esophageal varices SNOMED Code(s): 46488762 ICD Code: I85.00 - ESOPHAGEAL VARICES WITHOUT BLEEDING Status: Chronic Current Visit: No Qualifiers: Esophageal varices type: unspecified type Esophageal varices bleeding: without bleeding Qualified Code(s): I85.00 - Esophageal varices without bleeding (7) History of liver cancer SNOMED Code(s): 649167066, 006981017 ICD Code: Z85.05 - PERSONAL HISTORY OF MALIGNANT NEOPLASM OF LIVER Status: Chronic Current Visit: No (8) Thrombocytopenia SNOMED Code(s): 003158857 ICD Code: D69.6 - THROMBOCYTOPENIA, UNSPECIFIED Status: Chronic Current Visit: No Problem Details: -Platelet count gradually improving, today was 33 -likely chronic issue -no bleeding or bruising -patient will f/u with pcp to monitor Problem List Initiated/Reviewed/Updated: Yes Orders Last 24hrs: Active Orders 24 hr Category Date Time Status Patient Status [ADT] Routine ADT 07/25/19 15:06 Active Antiembolic Devices [RC] PER UNIT ROUTINE Care 07/25/19 15:09 Active Height and Weight [RC] DAILY Care 07/25/19 15:06 Active Intake and Output [RC] Q12H Care 07/25/19 15:08 Active Oxygen Therapy [RC] PRN Care 07/25/19 15:06 Active RT Aerosol Therapy [RC] ASDIRECTED Care 07/25/19 15:09 Active Up With Assistance [RC] ASDIRECTED Care 07/25/19 15:06 Active VTE/DVT Education [RC] PER UNIT ROUTINE Care 07/25/19 15:06 Active Vital Signs [RC] Q4H Care 07/25/19 15:06 Active CULTURE BLOOD [BC] Stat Lab 07/25/19 15:27 Received CULTURE BLOOD [BC] Stat Lab 07/25/19 15:56 Received Albuterol/Ipratropium [DuoNeb 3.0-0.5 MG/3 ML] Med 07/25/19 15:06 Active 3 ml NEB Q4HRRT PRN HYDROmorphone [Dilaudid] Med 07/25/19 15:06 Active 0.5 mg IVPUSH Q2H PRN Ondansetron [Zofran] Med 07/25/19 15:06 Active 4 mg IVPUSH Q4H PRN Sodium Chloride 0.9% [Saline Flush] Med 07/25/19 15:06 Active 2.5 ml FLUSH ASDIRECTED PRN Blood Culture x2 Reflex Set [OM.PC] Stat Ot 07/25/19 15:06 Ordered Saline Lock Insert [OM.PC] Routine Ot 07/25/19 15:06 Ordered Sequential Compression Device [OM.PC] Per Unit Routine Ot 07/25/19 15:08 Ordered Medication Orders Albuterol/Ipratropium (Duoneb 3.0-0.5 Mg/3 Ml) 3 ml NEB Q4HRRT PRN PRN Reason: Shortness Of Breath/wheezing Hydromorphone HCl (Dilaudid) 0.5 mg IVPUSH Q2H PRN PRN Reason: Pain (severe 7-10) Last Admin: 07/25/19 16:05 Dose: 0.5 mg Ondansetron HCl (Zofran) 4 mg IVPUSH Q4H PRN PRN Reason: Nausea Sodium Chloride (Saline Flush) 2.5 ml FLUSH ASDIRECTED PRN PRN Reason: Keep Vein Open Assessment/Plan Comment:: This 59 year old female admitted with ascites, abdominal pain secondary to liver cancer 1. Ascites: Obtain diagnostic paracentesis. Obtain cultures and cytology of fluid. Give Lasix 40 mg IV now and start Spironolactone 12.5 mg po daily. Monitor labwork in am. 2. Abdominal pain: Likely secondary to increasing ascites. Continue Fentanyl patch, replace now. Dilaudid IV PRN for pain. 3. Metastatic liver ca: Last treatment with Nivolumab on 07/05/2019. Platelets noted to be 91,000, INR 1.3. 4. Portal Vein thrombosis: Continue Xarelto. Continue and monitor post paracentesis. 5. COPD: Duonebs Q6hr for dyspnea. VTE prophylaxis: Xarelto Dispo: 1-2 days pending improvement. - Mortality Measure Prognosis:: Good
[2019-07-25] MEDS ORDERED: fentaNYL 100 MCG/HR Transdermal Patch TRDERM SCH (17:00)
[2019-07-25] MEDS: Spironolactone 25 MG Tab PO SCH (18:26)
[2019-07-25] MEDS: HYDROmorphone 1 MG/ML Syringe IVPUSH PRN ×2 (18:28→21:33)
[2019-07-25] MEDS ORDERED: Albumin 25% 12.5 GM/50 ML BAG IV ONE (19:18)
[2019-07-25] MEDS ORDERED: cefTRIAXone 1 GM in Premix Bag 1 BAG IV ONE (19:24)
--- NOTE | 2019-07-25 19:35 | PCM.PRNOTE ---
- Free Text/Narrative Note: Paracenteses procedure note Indication: large volume of ascites, abdominal pain Consent was obtain. The patient understood the risks and benefits including abdominal bleed, perforation, and . Sterile technique was use. Ultrasound was use to nancy a spot on the lower left abdomen free of bowel. The area was prepped in the usual sterile fashion. Area was anesthetized with lidocaine. Paracentesis catheter was advanced until I was able to draw back ascitic fluid. I obtain fluid samples that was sent to the lab. The catheter was then attached to vacuum containers. 7 liters of straw colored fluid was drained. Catheter was removed and bandaged applied. Patient felt relief from her abdominal distention. Albumin was ordered due to the large volume of fluid removed.
[2019-07-25] MEDS: busPIRone 5 MG Tab PO SCH (20:52)
[2019-07-25] MEDS: Lactulose Soln 10 GM/15 ML 15 ML UD Cup PO SCH (20:53)
[2019-07-25] MEDS: traZODone 50 MG Tab PO PRN (20:53)
[2019-07-25] MEDS: LORazepam 1 MG Tab PO PRN (20:53)
[2019-07-25] MEDS ORDERED: Losartan 50 MG Tab PO SCH (21:00)
[2019-07-25] MEDS: PRIMIDONE 50 MG PO SCH (21:36)
[2019-07-26] MEDS: HYDROmorphone 1 MG/ML Syringe IVPUSH PRN ×3 (00:18→07:56)
[2019-07-26 06:39] LABS: CHLORIDE,CL 102 mmol/L (98-107); SODIUM,NA 136 mmol/L (136-145)
[2019-07-26] MEDS: Levothyroxine 100 MCG Tab PO SCH (07:03)
--- NOTE | 2019-07-26 08:50 | PCM.PN ---
- General Info Date of Service: 07/26/19 Admission Dx/Problem (Free Text): Admission Diagnosis/Problem Admission Diagnosis/Problem Ascites Subjective Update: Reports abdominal pain continues, but has improved greatly after paracentesis. No chest pain. reports wheezing and requesting nebulizer. She uses nebs at home three to four times daily. She denies fevers. Requesting to stop fentanyl patch , reports it causes her nausea, the patch is very itchy. Functional Status: Reports: Pain Controlled, Tolerating Diet, Ambulating, Urinating - Review of Systems General: Reports: No Symptoms. Denies: Fever, Weakness, Malaise HEENT: Reports: No Symptoms. Denies: Headaches, Sore Throat, Visual Changes Pulmonary: Reports: Wheezing. Denies: Shortness of Breath Cardiovascular: Denies: Chest Pain Gastrointestinal: Reports: Abdominal Pain (improved, but continues slightly more than baseline). Denies: Nausea, Vomiting Genitourinary: Reports: No Symptoms. Denies: Dysuria, Frequency, Burning Musculoskeletal: Reports: No Symptoms Skin: Reports: No Symptoms Neurological: Reports: No Symptoms Psychiatric: Reports: No Symptoms - Patient Data Vitals - Most Recent: Last Vital Signs Temp 98.2 F 07/26/19 08:00 Pulse 73 07/26/19 08:00 Resp 13 07/26/19 08:00 BP 95/65 07/26/19 08:00 Pulse Ox 93 L 07/26/19 08:00 Weight - Most Recent: 100.879 kg I&O - Last 24 Hours: Intake & Output 07/25/19 07/26/19 07/26/19 22:59 06:59 14:59 Intake Total 100 840 Output Total 1600 Balance 100 -760 Lab Results Last 24 Hours: Laboratory Results - last 24 hr 07/25/19 07/25/19 07/25/19 Range/Units 15:27 15:27 15:27 WBC 5.03 (4.0-11.0) K/uL RBC 4.23 L (4.30-5.90) M/uL Hgb 11.4 L (12.0-16.0) g/dL Hct 34.6 L (36.0-46.0) % MCV 81.8 (80.0-98.0) fL MCH 27.0 (27.0-32.0) pg MCHC 32.9 (31.0-37.0) g/dL RDW Std Deviation 43.9 (28.0-62.0) fl RDW Coeff of Varsha 15 (11.0-15.0) % Plt Count 91 L (150-400) K/uL MPV 9.30 (7.40-12.00) fL Neut % (Auto) 68.2 (48.0-80.0) % Lymph % (Auto) 12.7 L (16.0-40.0) % Heard % (Auto) 12.3 (0.0-15.0) % Eos % (Auto) 6.6 (0.0-7.0) % Baso % (Auto) 0.2 (0.0-1.5) % Neut # (Auto) 3.4 (1.4-5.7) K/uL Lymph # (Auto) 0.6 (0.6-2.4) K/uL Heard # (Auto) 0.6 (0.0-0.8) K/uL Eos # (Auto) 0.3 (0.0-0.7) K/uL Baso # (Auto) 0.0 (0.0-0.1) K/uL Add Manual Diff Neutrophils % (Manual) (48.0-80.0) % Lymphocytes % (Manual) (16.0-40.0) % Monocytes % (Manual) (0.0-15.0) % Eosinophils % (Manual) (0.0-7.0) % Nucleated RBC % 0.0 /100WBC Absolute Seg Neuts (1.4-5.7) Lymphocytes # (Manual) (0.6-2.4) Monocytes # (Manual) (0.0-0.8) Eosinophils # (Manual) (0.0-0.7) Nucleated RBCs # 0 K/uL INR 1.37 APTT 35.6 H (18.6-31.3) SEC Sodium 134 L (136-145) mmol/L Potassium 3.5 (3.5-5.1) mmol/L Chloride 100 (98-107) mmol/L Carbon Dioxide 27.4 (21.0-32.0) mmol/L BUN 8 (7.0-18.0) mg/dL Creatinine 0.7 (0.6-1.0) mg/dL Est Cr Clr Drug Dosing TNP Estimated GFR (MDRD) > 60.0 ml/min Glucose 96 (74-106) mg/dL Calcium 9.0 (8.5-10.1) mg/dL Total Bilirubin 0.6 (0.2-1.0) mg/dL AST 54 H (15-37) IU/L ALT 11 L (14-63) IU/L Alkaline Phosphatase 225 H (46-116) U/L Total Protein 7.0 (6.4-8.2) g/dL Albumin 2.5 L (3.4-5.0) g/dL Globulin 4.5 H (2.6-4.0) g/dL Albumin/Globulin Ratio 0.6 L (0.9-1.6) Fluid Type Fluid Color Fluid Appearance Fluid WBC K/uL Fluid RBC M/uL Fluid Mononuclear Cell % Fl Polymorphonucl Cell % Fluid Total Protein g/dL Fluid LDH U/L Fluid Cholesterol g/dL Fluid Triglycerides mg/dL 07/25/19 07/26/19 07/26/19 Range/Units 17:39 06:10 06:10 WBC 3.90 L (4.0-11.0) K/uL RBC 3.62 L (4.30-5.90) M/uL Hgb 9.8 L (12.0-16.0) g/dL Hct 29.5 L (36.0-46.0) % MCV 81.5 (80.0-98.0) fL MCH 27.1 (27.0-32.0) pg MCHC 33.2 (31.0-37.0) g/dL RDW Std Deviation 44.2 (28.0-62.0) fl RDW Coeff of Varsha 15 (11.0-15.0) % Plt Count 79 L (150-400) K/uL MPV 9.60 (7.40-12.00) fL Neut % (Auto) (48.0-80.0) % Lymph % (Auto) (16.0-40.0) % Heard % (Auto) (0.0-15.0) % Eos % (Auto) (0.0-7.0) % Baso % (Auto) (0.0-1.5) % Neut # (Auto) (1.4-5.7) K/uL Lymph # (Auto) (0.6-2.4) K/uL Heard # (Auto) (0.0-0.8) K/uL Eos # (Auto) (0.0-0.7) K/uL Baso # (Auto) (0.0-0.1) K/uL Add Manual Diff YES Neutrophils % (Manual) 69 (48.0-80.0) % Lymphocytes % (Manual) 16 (16.0-40.0) % Monocytes % (Manual) 12 (0.0-15.0) % Eosinophils % (Manual) 3 (0.0-7.0) % Nucleated RBC % 0.0 /100WBC Absolute Seg Neuts 2.7 (1.4-5.7) Lymphocytes # (Manual) 0.6 (0.6-2.4) Monocytes # (Manual) 0.5 (0.0-0.8) Eosinophils # (Manual) 0.1 (0.0-0.7) Nucleated RBCs # 0 K/uL INR APTT (18.6-31.3) SEC Sodium 136 (136-145) mmol/L Potassium 3.2 L (3.5-5.1) mmol/L Chloride 102 (98-107) mmol/L Carbon Dioxide 28.1 (21.0-32.0) mmol/L BUN 9 (7.0-18.0) mg/dL Creatinine 0.8 (0.6-1.0) mg/dL Est Cr Clr Drug Dosing 61.09 Estimated GFR (MDRD) > 60.0 ml/min Glucose 81 (74-106) mg/dL Calcium 8.5 (8.5-10.1) mg/dL Total Bilirubin 0.4 (0.2-1.0) mg/dL AST 42 H (15-37) IU/L ALT 12 L (14-63) IU/L Alkaline Phosphatase 185 H (46-116) U/L Total Protein 5.6 L (6.4-8.2) g/dL Albumin 2.1 L (3.4-5.0) g/dL Globulin 3.5 (2.6-4.0) g/dL Albumin/Globulin Ratio 0.6 L (0.9-1.6) Fluid Type PER Fluid Color YELLOW Fluid Appearance CLEAR Fluid WBC 0.14 K/uL Fluid RBC 0.00 M/uL Fluid Mononuclear Cell 93.0 % Fl Polymorphonucl Cell 7.0 % Fluid Total Protein 1.2 g/dL Fluid LDH 36 U/L Fluid Cholesterol 12.0 g/dL Fluid Triglycerides 30 mg/dL Alok Results Last 24 Hours: Microbiology 07/25/19 17:39 Gram Stain - Preliminary Peritoneal Fluid Med Orders - Current: Current Medications Albuterol/Ipratropium (Duoneb 3.0-0.5 Mg/3 Ml) 3 ml NEB Q4HRRT PRN PRN Reason: Shortness Of Breath/wheezing Last Admin: 07/26/19 00:42 Dose: 3 ml Buspirone HCl (Buspar) 15 mg PO BID [facility] Last Admin: 07/25/19 20:52 Dose: 15 mg Fentanyl (Duragesic) 100 mcg TRDERM Q72H [facility] Last Admin: 07/25/19 18:37 Dose: 100 mcg Ferrous Sulfate (Ferrous Sulfate) 325 mg PO DAILY [facility] Folic Acid (Folic Acid) 1 mg PO DAILY [facility] Hydromorphone HCl (Dilaudid) 0.5 mg IVPUSH Q3H PRN PRN Reason: Pain (severe 7-10) Last Admin: 07/26/19 07:56 Dose: 0.5 mg Lactulose (Chronulac) 10 gm PO BID [facility] Last Admin: 07/25/19 20:53 Dose: 10 gm Levothyroxine Sodium (Synthroid) 200 mcg PO ACBREAKFAST [facility] Last Admin: 07/26/19 07:03 Dose: 200 mcg Lorazepam (Ativan) 1 mg PO TID PRN PRN Reason: Anxiety Last Admin: 07/25/19 20:53 Dose: 1 mg Ondansetron HCl (Zofran) 4 mg IVPUSH Q4H PRN PRN Reason: Nausea Primidone 50 Mg 1 each PO BEDTIME [facility] Last Admin: 07/25/19 21:36 Dose: Not Given Potassium Chloride (Klor-Con M20) 40 meq PO BIDMEALS [facility] Sertraline HCl (Zoloft) 100 mg PO DAILY [facility] Sodium Chloride (Saline Flush) 2.5 ml FLUSH ASDIRECTED PRN PRN Reason: Keep Vein Open Spironolactone (Aldactone) 12.5 mg PO DAILY [facility] Last Admin: 07/25/19 18:26 Dose: 12.5 mg Thiamine HCl (Vitamin B-1) 250 mg PO DAILY [facility] Trazodone HCl (Trazodone) 100 mg PO BEDTIME PRN PRN Reason: Abdominal Pain Last Admin: 07/25/19 20:53 Dose: 100 mg Discontinued Medications Furosemide (Lasix) 40 mg IVPUSH NOW ONE Stop: 07/25/19 16:31 Last Admin: 07/25/19 16:59 Dose: 40 mg Hydromorphone HCl (Dilaudid) 0.5 mg IVPUSH Q2H PRN PRN Reason: Pain (severe 7-10) Last Admin: 07/25/19 16:05 Dose: 0.5 mg Albumin Human (Flexbumin 25%) 12.5 gm in 50 mls @ 100 mls/hr IV ONETIME ONE Stop: 07/25/19 19:47 Last Admin: 07/25/19 20:57 Dose: 100 mls/hr Ceftriaxone Sodium/Dextrose 1 (gm/ Premix) 50 mls @ 100 mls/hr IV ONETIME ONE Stop: 07/25/19 19:53 Last Admin: 07/25/19 19:48 Dose: 100 mls/hr Lidocaine HCl (Xylocaine 1%) 10 ml INJECT ONETIME ONE Stop: 07/25/19 15:16 Last Admin: 07/25/19 18:09 Dose: Not Given Lidocaine HCl (Xylocaine 1%) 10 ml INJECT ONETIME ONE Stop: 07/25/19 15:31 Last Admin: 07/25/19 18:08 Dose: 10 ml Losartan Potassium (Cozaar) 50 mg PO BID [facility] Last Admin: 07/25/19 20:52 Dose: 50 mg - Exam General: Alert, Oriented, Cooperative, No Acute Distress HEENT: Pupils Equal Neck: Supple Lungs: Wheezing (throughout) Cardiovascular: Regular Rate, Regular Rhythm GI/Abdominal Exam: Normal Bowel Sounds, Soft, Tender (diffuse), Hepatomegaly, Splenomegaly Extremities: Normal Inspection, Normal Range of Motion, Non-Tender, Pedal Edema (+1 non pitting edema) Skin: Warm, Dry Psy/Mental Status: Alert, Normal Affect, Normal Mood - Problem List & Annotations (1) Ascites SNOMED Code(s): 094602006 Code(s): R18.8 - OTHER ASCITES Status: Acute Current Visit: Yes Qualifiers: Ascites type: other type Qualified Code(s): R18.8 - Other ascites (2) Abdominal pain SNOMED Code(s): 25847912 Code(s): R10.9 - UNSPECIFIED ABDOMINAL PAIN Status: Acute Current Visit: No Qualifiers: Abdominal location: right upper quadrant Qualified Code(s): R10.11 - Right upper quadrant pain (3) Portal vein thrombosis SNOMED Code(s): 79608619 Code(s): I81 - PORTAL VEIN THROMBOSIS Status: Chronic Current Visit: Yes (4) Anticoagulation adequate SNOMED Code(s): 077925574, 858654776 Code(s): Z79.01 - FISCAL ACCOUNTING CLERK (CURRENT) USE OF ANTICOAGULANTS Status: Chronic Current Visit: Yes (5) Cirrhosis of liver SNOMED Code(s): 89569550 Code(s): K74.60 - UNSPECIFIED CIRRHOSIS OF LIVER Status: Chronic Current Visit: No Qualifiers: Ascites presence: with ascites (6) Esophageal varices SNOMED Code(s): 68034400 Code(s): I85.00 - ESOPHAGEAL VARICES WITHOUT BLEEDING Status: Chronic Current Visit: No Qualifiers: Esophageal varices type: unspecified type Esophageal varices bleeding: without bleeding Qualified Code(s): I85.00 - Esophageal varices without bleeding (7) History of liver cancer SNOMED Code(s): 508037931, 452012482 Code(s): Z85.05 - PERSONAL HISTORY OF MALIGNANT NEOPLASM OF LIVER Status: Chronic Current Visit: No (8) Thrombocytopenia SNOMED Code(s): 242778484 Code(s): D69.6 - THROMBOCYTOPENIA, UNSPECIFIED Status: Chronic Current Visit: No Annotation/Comment:: -Platelet count gradually improving, today was 33 -likely chronic issue -no bleeding or bruising -patient will f/u with pcp to monitor - Problem List Review Problem List Initiated/Reviewed/Updated: Yes - My Orders Last 24 Hours: My Active Orders 07/25/19 15:06 Patient Status [ADT] Routine Height and Weight [RC] DAILY Oxygen Therapy [RC] PRN Up With Assistance [RC] ASDIRECTED VTE/DVT Education [RC] PER UNIT ROUTINE Vital Signs [RC] Q4H Albuterol/Ipratropium [DuoNeb 3.0-0.5 MG/3 ML] 3 ml NEB Q4HRRT PRN Ondansetron [Zofran] 4 mg IVPUSH Q4H PRN Sodium Chloride 0.9% [Saline Flush] 2.5 ml FLUSH ASDIRECTED PRN Blood Culture x2 Reflex Set [OM.PC] Stat Saline Lock Insert [OM.PC] Routine 07/25/19 15:08 Intake and Output [RC] Q12H Sequential Compression Device [OM.PC] Per Unit Routine 07/25/19 15:09 Antiembolic Devices [RC] PER UNIT ROUTINE RT Aerosol Therapy [RC] ASDIRECTED 07/25/19 15:27 CULTURE BLOOD [BC] Stat 07/25/19 15:56 CULTURE BLOOD [BC] Stat 07/25/19 16:32 traZODone 100 mg PO BEDTIME PRN 07/25/19 16:45 Spironolactone [Aldactone] 12.5 mg PO DAILY 07/25/19 16:54 HYDROmorphone [Dilaudid] 0.5 mg IVPUSH Q3H PRN LORazepam [Ativan] 1 mg PO TID PRN 07/25/19 17:00 fentaNYL [Duragesic] 100 mcg TRDERM Q72H 07/25/19 17:39 CULTURE BODY FLUID + SMEAR [RM] Routine 07/25/19 21:00 Lactulose [Chronulac] 10 gm PO BID Patient's Own Medication [Ptom] 1 each PO BEDTIME busPIRone [Buspar] 15 mg PO BID 07/26/19 07:30 Levothyroxine [Synthroid] 200 mcg PO ACBREAKFAST 07/26/19 08:02 Potassium Chloride [Klor-Con M20] 40 meq PO BIDMEALS 07/26/19 09:00 Ferrous Sulfate 325 mg PO DAILY Folic Acid 1 mg PO DAILY Sertraline [Zoloft] 100 mg PO DAILY Thiamine [Vitamin B-1] 250 mg PO DAILY 07/27/19 05:11 CBC WITH AUTO DIFF [HEME] AM COMPREHENSIVE METABOLIC PN,CMP [CHEM] AM - Plan Plan:: This 59 year old female admitted with ascites, abdominal pain secondary to liver cancer 1. Ascites: Paracentesis last evening, 7 L obtained. Cultures pending, but cell count for peritoneal fluid does not appear to be SBP. No further antibiotics. Increase Lasix 40 mg PO and continue Spironolactone but increase to 25 mg po daily. Monitor labwork in am. 2. Abdominal pain: Improving. Michelle wants to stop Fentanyl patch, due to nausea and itching. Will transition to Morphine PO. Consulted Pharmacy, Remove fentanyl patch, will start at [facility] 60 mg Q12hr with Morphine IR 15 mg every 4 hours PRN pain. 3. Metastatic liver ca: Last treatment with Nivolumab on 07/05/2019. Platelets noted to be 79,000. Monitor CBC in am. 4. Portal Vein thrombosis: Continue Xarelto. Continue and monitor post paracentesis. 5. COPD: Duonebs Q6hr for dyspnea, schedule due to wheezing. Will start Advair now to help with control. VTE prophylaxis: Xarelto Dispo: 1-2 days pending improvement.
[2019-07-26] MEDS: Thiamine 100 MG Tab PO SCH (09:17)
[2019-07-26] MEDS: Spironolactone 25 MG Tab PO SCH (09:18)
[2019-07-26] MEDS: Potassium Chloride 20 MEQ Tab.ER PO SCH ×2 (09:20→16:25)
[2019-07-26] MEDS: Folic Acid 1 MG Tab PO SCH (09:20)
[2019-07-26] MEDS: Sertraline 100 MG Tab PO SCH (09:20)
[2019-07-26] MEDS: busPIRone 5 MG Tab PO SCH ×2 (09:21→21:48)
[2019-07-26] MEDS: LORazepam 1 MG Tab PO PRN ×2 (09:21→21:48)
[2019-07-26] MEDS: Ferrous Sulfate 325 MG Tab PO SCH (09:22)
[2019-07-26] MEDS: Lactulose Soln 10 GM/15 ML 15 ML UD Cup PO SCH ×2 (09:22→21:47)
[2019-07-26] MEDS ORDERED: Albumin 25% 12.5 GM/50 ML BAG IV ONE ×2 (10:19→10:54)
[2019-07-26] MEDS ORDERED: Docusate Sodium 100 MG Cap PO PRN (10:22)
[2019-07-26] MEDS ORDERED: Spironolactone 25 MG Tab PO ONE (10:23)
[2019-07-26] MEDS: Furosemide 40 MG Tab PO SCH (11:05)
[2019-07-26] MEDS: Fluticasone/Salmeterol 250-50 MCG Inhalation Powder 14/Diskus INH SCH ×2 (11:18→21:27)
[2019-07-26] MEDS: Albuterol/Ipratropium 3.0-0.5 MG/3 ML Neb Soln NEB SCH ×4 (11:19→21:27)
[2019-07-26] MEDS: Morphine 30 MG Tab.ER PO SCH ×2 (11:27→21:49)
[2019-07-26] MEDS ORDERED: Rivaroxaban 10 MG Tab PO SCH (17:00)
[2019-07-26] MEDS: Morphine 15 MG Tab PO PRN (17:04)
[2019-07-26] MEDS: traZODone 50 MG Tab PO PRN (21:48)
[2019-07-26] MEDS: PRIMIDONE 50 MG PO SCH (21:58)
[2019-07-27] MEDS: Albuterol/Ipratropium 3.0-0.5 MG/3 ML Neb Soln NEB SCH ×3 (03:05→09:28)
[2019-07-27] MEDS: Morphine 15 MG Tab PO PRN (03:05)
[2019-07-27 06:45] LABS: CHLORIDE,CL 99 mmol/L (98-107); SODIUM,NA 134 mmol/L (136-145)
[2019-07-27] MEDS: Levothyroxine 100 MCG Tab PO SCH (06:51)
[2019-07-27] MEDS: busPIRone 5 MG Tab PO SCH (08:59)
[2019-07-27] MEDS ORDERED: Spironolactone 25 MG Tab PO SCH (09:00)
[2019-07-27] MEDS: Sertraline 100 MG Tab PO SCH (09:00)
[2019-07-27] MEDS: Ferrous Sulfate 325 MG Tab PO SCH (09:00)
[2019-07-27] MEDS: Folic Acid 1 MG Tab PO SCH (09:00)
[2019-07-27] MEDS: Furosemide 40 MG Tab PO SCH (09:01)
[2019-07-27] MEDS: Morphine 30 MG Tab.ER PO SCH (09:01)
[2019-07-27] MEDS: Lactulose Soln 10 GM/15 ML 15 ML UD Cup PO SCH (09:02)
[2019-07-27] MEDS: Thiamine 100 MG Tab PO SCH (09:02)
[2019-07-27] MEDS: Fluticasone/Salmeterol 250-50 MCG Inhalation Powder 14/Diskus INH SCH (09:28)
--- NOTE | 2019-07-27 11:36 | PCM.DCSUM1 ---
<Brayan Santos - Last Filed: 07/27/19 12:14> Discharge Summary - Hospital Course Free Text/Narrative:: Discharge summary Admission date Discharge date July 27, 2019 Admission diagnoses: ascites and liver cancer with portal hypertension/ past medical history:hepatitis C, COPD, obesity Discharge diagnoses: ascites and liver cancer with portal hypertension Past medical history : hepatitis C, COPD obesity Consultations: none Procedures: large volume paracentesis of 7 L Hospital course: patient is a 59-year-old female with a history of liver cancer with portal hypertension, portal vein thrombus, hepatitis C currently on day 3 of admissionfurther large volume ascites. Initially presented to outpatient clinic with abdominal pain, distention and discomfort; directly admitted to [facility], restarted on her Lasix 20 mg, paracentesis performed, with 7 L removed. SAAG score 1.3: most likely secondary to portal hypertension. Patient was started on spironolactone admitted return 5 mg twice a day. Day of discharge patient states she is feeling better however was still noticing some loculation of fluid ; conversation regarding compliance of medication to avoid frequency of large volume paracentesis was discussed; patient agreed. Patient was given 1 dose of ceftriaxone in ED for possible SBP patient otherwise stable; cytology and culture results showed no acute or overt signs of infection. Patient discharged in stable condition Discharge condition: Stable Disposition: home Discharge medications: Furosemide [Lasix] 20 mg PO DAILY 02/14/16 [History] Sertraline [Zoloft] 100 mg PO DAILY 08/21/16 [History] Albuterol/Ipratropium [DuoNeb 3.0-0.5 MG/3 ML] 2.5 mg NEB Q6H 03/12/17 [History] Albuterol Sulfate [Proair Hfa] 1 puff INH QID 04/13/19 [History] Ascorbic Acid [Vitamin C] 1,000 mg PO DAILY 04/13/19 [History] Cholecalciferol (Vitamin D3) [Vitamin D3] 5,000 unit PO DAILY 04/13/19 [History] Cyanocobalamin (Vitamin B-12) [B-12] 1,000 mcg PO DAILY 04/13/19 [History] Ferrous Sulfate 325 mg PO DAILY 04/13/19 [History] Folic Acid 0.4 mg PO DAILY 04/13/19 [History] Levothyroxine 200 mcg PO DAILY 04/13/19 [History] Primidone 50 mg PO BEDTIME 04/13/19 [History] Thiamine HCl 250 mg PO DAILY 04/13/19 [History] Lactulose 10 gm PO BID 06/06/19 [History] LORazepam [Ativan] 2 mg PO TID PRN 07/25/19 [History] Rivaroxaban [Xarelto] 20 mg PO DAILY 07/25/19 [History] busPIRone HCl [Buspirone HCl] 15 mg PO BID 07/25/19 [History] traZODone HCl [Trazodone HCl] 100 mg PO BEDTIME PRN 07/25/19 [History] Fluticasone/Salmeterol [Advair 250-50] 1 puff INH BID diskus 07/27/19 [Rx] Furosemide [Lasix] 40 mg PO DAILY 30 Days #30 tablet 07/27/19 [Rx] Midodrine 5 mg PO BID 30 Days #30 tablet 07/27/19 [Rx] Morphine 15 mg PO Q6H PRN 30 Days #120 tablet 07/27/19 [Rx] Morphine [MS Contin] 30 mg PO Q12HR 30 Days #60 tab.er 07/27/19 [Rx] Spironolactone [Aldactone] 50 mg PO DAILY 60 Days #60 tablet 07/27/19 [Rx] Discharge instructions: Follow-up:advised to follow with PCP within one week - Discharge Data Discharge Date: 07/27/19 Discharge Disposition: Home, Self-Care 01 Condition: Stable - Patient Instructions Diet: Low Sodium Fluid Restriction: 1500 mL Driving: May Drive Today Showering/Bathing: May Shower Notify Provider of: Fever, Increased Pain, Swelling and Redness, Drainage, Nausea and/or Vomiting Other/Special Instructions: contact providor with symptoms of chest pain, shortness of breath, increasing belly distension or abdominal pain. - Discharge Plan *PRESCRIPTION DRUG MONITORING PROGRAM REVIEWED*: No *COPY OF PRESCRIPTION DRUG MONITORING REPORT IN PATIENT SAURABH: No Prescriptions/Med Rec: Morphine [MS Contin] 30 mg PO Q12HR 30 Days #60 tab.er Furosemide [Lasix] 40 mg PO DAILY 30 Days #30 tablet Midodrine 5 mg PO BID 30 Days #30 tablet Morphine 15 mg PO Q6H PRN 30 Days #120 tablet PRN Reason: Breakthrough Pain Spironolactone [Aldactone] 50 mg PO DAILY 60 Days #60 tablet Home Medications: Home Meds Furosemide [Lasix] 20 mg PO DAILY 02/14/16 [History] Sertraline [Zoloft] 100 mg PO DAILY 08/21/16 [History] Albuterol/Ipratropium [DuoNeb 3.0-0.5 MG/3 ML] 2.5 mg NEB Q6H 03/12/17 [History] Albuterol Sulfate [Proair Hfa] 1 puff INH QID 04/13/19 [History] Ascorbic Acid [Vitamin C] 1,000 mg PO DAILY 04/13/19 [History] Cholecalciferol (Vitamin D3) [Vitamin D3] 5,000 unit PO DAILY 04/13/19 [History] Cyanocobalamin (Vitamin B-12) [B-12] 1,000 mcg PO DAILY 04/13/19 [History] Ferrous Sulfate 325 mg PO DAILY 04/13/19 [History] Folic Acid 0.4 mg PO DAILY 04/13/19 [History] Levothyroxine 200 mcg PO DAILY 04/13/19 [History] Losartan [Cozaar] 50 mg PO BID 04/13/19 [History] Primidone 50 mg PO BEDTIME 04/13/19 [History] Thiamine HCl 250 mg PO DAILY 04/13/19 [History] Lactulose 10 gm PO BID 06/06/19 [History] LORazepam [Ativan] 2 mg PO TID PRN 07/25/19 [History] Rivaroxaban [Xarelto] 20 mg PO DAILY 07/25/19 [History] busPIRone HCl [Buspirone HCl] 15 mg PO BID 07/25/19 [History] traZODone HCl [Trazodone HCl] 100 mg PO BEDTIME PRN 07/25/19 [History] Docusate Sodium [Colace] 100 mg PO BID PRN cap 07/27/19 [Rx] Fluticasone/Salmeterol [Advair 250-50] 1 puff INH BID diskus 07/27/19 [Rx] Furosemide [Lasix] 40 mg PO DAILY 30 Days #30 tablet 07/27/19 [Rx] Midodrine 5 mg PO BID 30 Days #30 tablet 07/27/19 [Rx] Morphine 15 mg PO Q6H PRN 30 Days #120 tablet 07/27/19 [Rx] Morphine [MS Contin] 30 mg PO Q12HR 30 Days #60 tab.er 07/27/19 [Rx] Spironolactone [Aldactone] 50 mg PO DAILY 60 Days #60 tablet 07/27/19 [Rx] Patient Handouts: Paracentesis, Care After, Ascites Referrals: Brayan Santos MD [Resident] - 08/10/19 1:00 pm - Discharge Summary/Plan Comment DC Time >30 min.: No - Patient Data Vitals - Most Recent: Last Vital Signs Temp 97.7 F 07/27/19 08:00 Pulse 84 07/27/19 08:00 Resp 18 07/27/19 08:00 BP 107/60 07/27/19 08:00 Pulse Ox 93 L 07/27/19 08:00 Weight - Most Recent: 103.147 kg I&O - Last 24 hours: Intake & Output 07/26/19 07/27/19 07/27/19 22:59 06:59 14:59 Intake Total 1010 850 240 Output Total 250 500 Balance 760 350 240 Lab Results - Last 24 hrs: Laboratory Results - last 24 hr 07/27/19 07/27/19 Range/Units 06:05 06:05 WBC 5.77 (4.0-11.0) K/uL RBC 3.84 L (4.30-5.90) M/uL Hgb 10.4 L (12.0-16.0) g/dL Hct 31.5 L (36.0-46.0) % MCV 82.0 (80.0-98.0) fL MCH 27.1 (27.0-32.0) pg MCHC 33.0 (31.0-37.0) g/dL RDW Std Deviation 45.2 (28.0-62.0) fl RDW Coeff of Varsha 15 (11.0-15.0) % Plt Count 84 L (150-400) K/uL MPV 10.00 (7.40-12.00) fL Neut % (Auto) 65.7 (48.0-80.0) % Lymph % (Auto) 15.6 L (16.0-40.0) % [place] % (Auto) 11.6 (0.0-15.0) % Eos % (Auto) 6.6 (0.0-7.0) % Baso % (Auto) 0.5 (0.0-1.5) % Neut # (Auto) 3.8 (1.4-5.7) K/uL Lymph # (Auto) 0.9 (0.6-2.4) K/uL [place] # (Auto) 0.7 (0.0-0.8) K/uL Eos # (Auto) 0.4 (0.0-0.7) K/uL Baso # (Auto) 0.0 (0.0-0.1) K/uL Nucleated RBC % 0.0 /100WBC Nucleated RBCs # 0 K/uL Sodium 134 L (136-145) mmol/L Potassium 4.6 (3.5-5.1) mmol/L Chloride 99 (98-107) mmol/L Carbon Dioxide 28.5 (21.0-32.0) mmol/L BUN 13 (7.0-18.0) mg/dL Creatinine 0.8 (0.6-1.0) mg/dL Est Cr Clr Drug Dosing 61.09 mL/min Estimated GFR (MDRD) > 60.0 ml/min Glucose 97 (74-106) mg/dL Calcium 8.8 (8.5-10.1) mg/dL Total Bilirubin 0.6 (0.2-1.0) mg/dL AST 46 H (15-37) IU/L ALT 12 L (14-63) IU/L Alkaline Phosphatase 178 H (46-116) U/L Total Protein 6.0 L (6.4-8.2) g/dL Albumin 2.5 L (3.4-5.0) g/dL Globulin 3.5 (2.6-4.0) g/dL Albumin/Globulin Ratio 0.7 L (0.9-1.6) DARSHAN Results - Last 24 hrs: Microbiology 07/25/19 17:39 Gram Stain - Final Peritoneal Fluid Body Fluid Culture - Preliminary NO GROWTH AFTER 2 DAYS 07/25/19 15:56 Aerobic Blood Culture - Preliminary Blood - Venous - Lab Draw NO GROWTH AFTER 1 DAY Anaerobic Blood Culture - Preliminary NO GROWTH AFTER 1 DAY 07/25/19 15:27 Aerobic Blood Culture - Preliminary Blood - Venous NO GROWTH AFTER 1 DAY Anaerobic Blood Culture - Preliminary NO GROWTH AFTER 1 DAY Med Orders - Current: Current Medications Albuterol/Ipratropium (Duoneb 3.0-0.5 Mg/3 Ml) 3 ml NEB Q4HRRT [facility] Last Admin: 07/27/19 09:28 Dose: 3 ml Buspirone HCl (Buspar) 15 mg PO BID [facility] Last Admin: 07/27/19 08:59 Dose: 15 mg Docusate Sodium (Colace) 100 mg PO BID PRN PRN Reason: Constipation Last Admin: 07/27/19 09:02 Dose: 100 mg Ferrous Sulfate (Ferrous Sulfate) 325 mg PO DAILY [facility] Last Admin: 07/27/19 09:00 Dose: 325 mg Folic Acid (Folic Acid) 1 mg PO DAILY [facility] Last Admin: 07/27/19 09:00 Dose: 1 mg Furosemide (Lasix) 40 mg PO DAILY [facility] Last Admin: 07/27/19 09:01 Dose: 40 mg Lactulose (Chronulac) 10 gm PO BID [facility] Last Admin: 07/27/19 09:02 Dose: 10 gm Levothyroxine Sodium (Synthroid) 200 mcg PO ACBREAKFAST [facility] Last Admin: 07/27/19 06:51 Dose: 200 mcg Lorazepam (Ativan) 1 mg PO TID PRN PRN Reason: Anxiety Last Admin: 07/26/19 21:48 Dose: 1 mg Morphine Sulfate (Ms Contin) 60 mg PO Q12HR [facility] Last Admin: 07/27/19 09:01 Dose: 60 mg Morphine Sulfate (Morphine) 15 mg PO Q4H PRN PRN Reason: Breakthrough Pain Last Admin: 07/27/19 03:05 Dose: 15 mg Ondansetron HCl (Zofran) 4 mg IVPUSH Q4H PRN PRN Reason: Nausea Primidone 50 Mg 1 each PO BEDTIME [facility] Last Admin: 07/26/19 21:58 Dose: Not Given Rivaroxaban (Xarelto) 20 mg PO DAILY@1700 [facility] Last Admin: 07/26/19 16:26 Dose: 20 mg Fluticasone/Salmeterol (Advair Diskus 250-50) 1 puff INH BID [facility] Last Admin: 07/27/19 09:28 Dose: 1 inhalation Sertraline HCl (Zoloft) 100 mg PO DAILY [facility] Last Admin: 07/27/19 09:00 Dose: 100 mg Sodium Chloride (Saline Flush) 2.5 ml FLUSH ASDIRECTED PRN PRN Reason: Keep Vein Open Spironolactone (Aldactone) 25 mg PO DAILY [facility] Last Admin: 07/27/19 09:00 Dose: 25 mg Thiamine HCl (Vitamin B-1) 250 mg PO DAILY [facility] Last Admin: 07/27/19 09:02 Dose: 250 mg Trazodone HCl (Trazodone) 100 mg PO BEDTIME PRN PRN Reason: Abdominal Pain Last Admin: 07/26/19 21:48 Dose: 100 mg Discontinued Medications Albuterol/Ipratropium (Duoneb 3.0-0.5 Mg/3 Ml) 3 ml NEB Q4HRRT PRN PRN Reason: Shortness Of Breath/wheezing Last Admin: 07/26/19 00:42 Dose: 3 ml Fentanyl (Duragesic) 100 mcg TRDERM Q72H [facility] Last Admin: 07/25/19 18:37 Dose: 100 mcg Furosemide (Lasix) 40 mg IVPUSH NOW ONE Stop: 07/25/19 16:31 Last Admin: 07/25/19 16:59 Dose: 40 mg Hydromorphone HCl (Dilaudid) 0.5 mg IVPUSH Q2H PRN PRN Reason: Pain (severe 7-10) Last Admin: 07/25/19 16:05 Dose: 0.5 mg Hydromorphone HCl (Dilaudid) 0.5 mg IVPUSH Q3H PRN PRN Reason: Pain (severe 7-10) Last Admin: 07/26/19 07:56 Dose: 0.5 mg Albumin Human (Flexbumin 25%) 12.5 gm in 50 mls @ 100 mls/hr IV ONETIME ONE Stop: 07/25/19 19:47 Last Admin: 07/25/19 20:57 Dose: 100 mls/hr Ceftriaxone Sodium/Dextrose 1 (gm/ Premix) 50 mls @ 100 mls/hr IV ONETIME ONE Stop: 07/25/19 19:53 Last Admin: 07/25/19 19:48 Dose: 100 mls/hr Albumin Human (Flexbumin 25%) 12.5 gm in 50 mls @ 100 mls/hr IV ONETIME ONE Stop: 07/26/19 10:48 Last Admin: 07/26/19 11:30 Dose: 100 mls/hr Albumin Human (Flexbumin 25%) 12.5 gm in 50 mls @ 100 mls/hr IV ONETIME ONE Stop: 07/26/19 11:23 Last Admin: 07/26/19 12:27 Dose: 100 mls/hr Lidocaine HCl (Xylocaine 1%) 10 ml INJECT ONETIME ONE Stop: 07/25/19 15:16 Last Admin: 07/25/19 18:09 Dose: Not Given Lidocaine HCl (Xylocaine 1%) 10 ml INJECT ONETIME ONE Stop: 07/25/19 15:31 Last Admin: 07/25/19 18:08 Dose: 10 ml Losartan Potassium (Cozaar) 50 mg PO BID [facility] Last Admin: 07/25/19 20:52 Dose: 50 mg Potassium Chloride (Klor-Con M20) 40 meq PO BIDMEALS [facility] Stop: 07/26/19 17:01 Last Admin: 07/26/19 16:25 Dose: 40 meq Spironolactone (Aldactone) 12.5 mg PO DAILY [facility] Last Admin: 07/26/19 09:18 Dose: 12.5 mg Spironolactone (Aldactone) 12.5 mg PO ONETIME ONE Stop: 07/26/19 10:24 Last Admin: 07/26/19 11:11 Dose: Not Given <Abdias Villafuerte J - Last Filed: 07/30/19 11:21> - Patient Data Vitals - Most Recent: Last Vital Signs Temp 36.6 C 07/27/19 11:48 Pulse 88 07/27/19 11:48 Resp 20 07/27/19 11:48 BP 121/79 07/27/19 11:48 Pulse Ox 92 L 07/27/19 11:48 DARSHAN Results - Last 24 hrs: Microbiology 07/25/19 15:56 Aerobic Blood Culture - Preliminary Blood - Venous - Lab Draw NO GROWTH AFTER 4 DAYS Anaerobic Blood Culture - Preliminary NO GROWTH AFTER 4 DAYS 07/25/19 15:27 Aerobic Blood Culture - Preliminary Blood - Venous NO GROWTH AFTER 4 DAYS Anaerobic Blood Culture - Preliminary NO GROWTH AFTER 4 DAYS Med Orders - Current: Current Medications Discontinued Medications Albuterol/Ipratropium (Duoneb 3.0-0.5 Mg/3 Ml) 3 ml NEB Q4HRRT PRN PRN Reason: Shortness Of Breath/wheezing Last Admin: 07/26/19 00:42 Dose: 3 ml Albuterol/Ipratropium (Duoneb 3.0-0.5 Mg/3 Ml) 3 ml NEB Q4HRRT [facility] Last Admin: 07/27/19 09:28 Dose: 3 ml Buspirone HCl (Buspar) 15 mg PO BID [facility] Last Admin: 07/27/19 08:59 Dose: 15 mg Docusate Sodium (Colace) 100 mg PO BID PRN PRN Reason: Constipation Last Admin: 07/27/19 09:02 Dose: 100 mg Fentanyl (Duragesic) 100 mcg TRDERM Q72H [facility] Last Admin: 07/25/19 18:37 Dose: 100 mcg Ferrous Sulfate (Ferrous Sulfate) 325 mg PO DAILY [facility] Last Admin: 07/27/19 09:00 Dose: 325 mg Folic Acid (Folic Acid) 1 mg PO DAILY [facility] Last Admin: 07/27/19 09:00 Dose: 1 mg Furosemide (Lasix) 40 mg IVPUSH NOW ONE Stop: 07/25/19 16:31 Last Admin: 07/25/19 16:59 Dose: 40 mg Furosemide (Lasix) 40 mg PO DAILY [facility] Last Admin: 07/27/19 09:01 Dose: 40 mg Hydromorphone HCl (Dilaudid) 0.5 mg IVPUSH Q2H PRN PRN Reason: Pain (severe 7-10) Last Admin: 07/25/19 16:05 Dose: 0.5 mg Hydromorphone HCl (Dilaudid) 0.5 mg IVPUSH Q3H PRN PRN Reason: Pain (severe 7-10) Last Admin: 07/26/19 07:56 Dose: 0.5 mg Albumin Human (Flexbumin 25%) 12.5 gm in 50 mls @ 100 mls/hr IV ONETIME ONE Stop: 07/25/19 19:47 Last Admin: 07/25/19 20:57 Dose: 100 mls/hr Ceftriaxone Sodium/Dextrose 1 (gm/ Premix) 50 mls @ 100 mls/hr IV ONETIME ONE Stop: 07/25/19 19:53 Last Admin: 07/25/19 19:48 Dose: 100 mls/hr Albumin Human (Flexbumin 25%) 12.5 gm in 50 mls @ 100 mls/hr IV ONETIME ONE Stop: 07/26/19 10:48 Last Admin: 07/26/19 11:30 Dose: 100 mls/hr Albumin Human (Flexbumin 25%) 12.5 gm in 50 mls @ 100 mls/hr IV ONETIME ONE Stop: 07/26/19 11:23 Last Admin: 07/26/19 12:27 Dose: 100 mls/hr Lactulose (Chronulac) 10 gm PO BID [facility] Last Admin: 07/27/19 09:02 Dose: 10 gm Levothyroxine Sodium (Synthroid) 200 mcg PO ACBREAKFAST [facility] Last Admin: 07/27/19 06:51 Dose: 200 mcg Lidocaine HCl (Xylocaine 1%) 10 ml INJECT ONETIME ONE Stop: 07/25/19 15:16 Last Admin: 07/25/19 18:09 Dose: Not Given Lidocaine HCl (Xylocaine 1%) 10 ml INJECT ONETIME ONE Stop: 07/25/19 15:31 Last Admin: 07/25/19 18:08 Dose: 10 ml Lorazepam (Ativan) 1 mg PO TID PRN PRN Reason: Anxiety Last Admin: 07/26/19 21:48 Dose: 1 mg Losartan Potassium (Cozaar) 50 mg PO BID [facility] Last Admin: 07/25/19 20:52 Dose: 50 mg Morphine Sulfate (Ms Contin) 60 mg PO Q12HR [facility] Last Admin: 07/27/19 09:01 Dose: 60 mg Morphine Sulfate (Morphine) 15 mg PO Q4H PRN PRN Reason: Breakthrough Pain Last Admin: 07/27/19 03:05 Dose: 15 mg Ondansetron HCl (Zofran) 4 mg IVPUSH Q4H PRN PRN Reason: Nausea Primidone 50 Mg 1 each PO BEDTIME [facility] Last Admin: 07/26/19 21:58 Dose: Not Given Potassium Chloride (Klor-Con M20) 40 meq PO BIDMEALS [facility] Stop: 07/26/19 17:01 Last Admin: 07/26/19 16:25 Dose: 40 meq Rivaroxaban (Xarelto) 20 mg PO DAILY@1700 [facility] Last Admin: 07/26/19 16:26 Dose: 20 mg Fluticasone/Salmeterol (Advair Diskus 250-50) 1 puff INH BID [facility] Last Admin: 07/27/19 09:28 Dose: 1 inhalation Sertraline HCl (Zoloft) 100 mg PO DAILY [facility] Last Admin: 07/27/19 09:00 Dose: 100 mg Sodium Chloride (Saline Flush) 2.5 ml FLUSH ASDIRECTED PRN PRN Reason: Keep Vein Open Spironolactone (Aldactone) 12.5 mg PO DAILY [facility] Last Admin: 07/26/19 09:18 Dose: 12.5 mg Spironolactone (Aldactone) 12.5 mg PO ONETIME ONE Stop: 07/26/19 10:24 Last Admin: 07/26/19 11:11 Dose: Not Given Spironolactone (Aldactone) 25 mg PO DAILY [facility] Last Admin: 07/27/19 09:00 Dose: 25 mg Thiamine HCl (Vitamin B-1) 250 mg PO DAILY [facility] Last Admin: 07/27/19 09:02 Dose: 250 mg Trazodone HCl (Trazodone) 100 mg PO BEDTIME PRN PRN Reason: Abdominal Pain Last Admin: 07/26/19 21:48 Dose: 100 mg - Free Text/Narrative Note: I have evaluated the patient. I have discussed findings and treatment plan with resident. I agree with the assessment and plan outlined in the following note.
[2019-07-27 11:49] VITALS: BP 121/79
== END 2019-07-27 13:55 | disposition home or self-care (01) ==
LOC: MW.MS 14:56
PROVIDERS: ADMIT Internal Medicine; ATTEND Internal Medicine
DX: K74.60 Unspecified cirrhosis of liver (principal); R18.8 Other ascites; C78.7 Secondary malignant neoplasm of liver and intrahepatic bile duct; K76.6 Portal hypertension; D69.6 Thrombocytopenia, unspecified; I85.00 Esophageal varices without bleeding; J44.9 Chronic obstructive pulmonary disease, unspecified; E66.9 Obesity, unspecified; I81 Portal vein thrombosis; I10 Essential (primary) hypertension; B19.20 Unspecified viral hepatitis C without hepatic coma; E03.9 Hypothyroidism, unspecified; Z88.2 Allergy status to sulfonamides; Z88.1 Allergy status to other antibiotic agents; Z79.51 Long term (current) use of inhaled steroids; Z79.891 Long term (current) use of opiate analgesic; Z79.01 Long term (current) use of anticoagulants; Z79.899 Other long term (current) drug therapy; Z68.41 Body mass index [BMI] 40.0-44.9, adult
CPT/HCPCS: 36415; 49083; 80053; 81003; 83615; 84157; 84478; 85025; 85610; 85730; 87040; 87070; 87205; 89050; 94640; 94664; A9270; J0696; J1170; J1940; J2001; P9047; 96365; 96366; 96375; 96376; G0378; G0379; J7620-GY

== ENCOUNTER 2019-08-22 17:18 | Inpatient (IN) | payer BC, OTHER ==
[2019-08-22] MEDS ORDERED: LORazepam 2 MG/ML SDV IVPUSH ONE (17:20)
[2019-08-22] MEDS ORDERED: Sodium Chloride 0.9% 10 ML Syringe FLUSH PRN (17:21)
[2019-08-22] MEDS ORDERED: Sodium Chloride 0.9% 2.5 ML Syringe FLUSH PRN (17:21)
--- NOTE | 2019-08-22 17:22 | EDM.PDOC ---
ED HPI GENERAL MEDICAL PROBLEM - General Chief Complaint: Abdominal Pain Stated Complaint: UNKNOWN Time Seen by Provider: 08/22/19 17:19 - History of Present Illness INITIAL COMMENTS - FREE TEXT/NARRATIVE: HISTORY AND PHYSICAL: History of present illness: Patient is a 59-year-old white female with a past medical history significant for advanced liver cancer who states she has advanced directive of DNR presents with a concern of abdominal pain. Patient denies vomiting fever chills or other concern on arrival patient's mentation is somewhat slow but she doesn't request Robley follow commands and move all extremities Review of systems: As per history of present illness and below otherwise all systems reviewed and negative. Past medical history: As per history of present illness and as reviewed below otherwise noncontributory. Surgical history: As per history of present illness and as reviewed below otherwise noncontributory. Social history: No reported history of drug or alcohol abuse. Family history: As per history of present illness and as reviewed below otherwise noncontributory. Physical exam: HEENT: Atraumatic, normocephalic, pupils reactive, sallow complexion, mucous membranes dry, throat clear, neck supple, nontender, trachea midline. Lungs: Clear to auscultation, breath sounds equal bilaterally, chest nontender. Heart: S1S2, regular, negative for clicks, rubs, or JVD. Abdomen: Soft, protuberant tenderness in right upper quadrant to deep palpation . Negative for costovertebral tenderness. Pelvis: Stable nontender. Genitourinary: Deferred. Rectal: Deferred. Extremities: Atraumatic, negative for cords or calf pain. Neurovascular unremarkable. Neuro: Awake, alert, follows commands and moves all extremities limit grossly nonfocal exam Diagnostics: CBC CMP troponin PT/INR chest x-ray EKG ammonia level ABG UA blood culture 2 Therapeutics: Saline at 125 mL an hour Ativan 1 mg IV Impression: #1 advanced liver cancer #2 abdominal pain #3 hepatic encephalopathy #4 DNR Definitive disposition and diagnosis as appropriate pending reevaluation and review of above. - Related Data Allergies Allergy/AdvReac Type Severity Reaction Status Date / Time sulfamethoxazole Allergy Other Verified 08/22/19 17:23 [From Bactrim] trimethoprim [From Bactrim] Allergy Other Verified 08/22/19 17:23 Home Meds: Home Meds Furosemide [Lasix] 20 mg PO DAILY 02/14/16 [History] Sertraline [Zoloft] 100 mg PO DAILY 08/21/16 [History] Albuterol/Ipratropium [DuoNeb 3.0-0.5 MG/3 ML] 2.5 mg NEB Q6H 03/12/17 [History] Albuterol Sulfate [Proair Hfa] 1 puff INH QID 04/13/19 [History] Ascorbic Acid [Vitamin C] 1,000 mg PO DAILY 04/13/19 [History] Cholecalciferol (Vitamin D3) [Vitamin D3] 5,000 unit PO DAILY 04/13/19 [History] Cyanocobalamin (Vitamin B-12) [B-12] 1,000 mcg PO DAILY 04/13/19 [History] Ferrous Sulfate 325 mg PO DAILY 04/13/19 [History] Folic Acid 0.4 mg PO DAILY 04/13/19 [History] Levothyroxine 200 mcg PO DAILY 04/13/19 [History] Losartan [Cozaar] 50 mg PO BID 04/13/19 [History] Primidone 50 mg PO BEDTIME 04/13/19 [History] Thiamine HCl 250 mg PO DAILY 04/13/19 [History] Lactulose 10 gm PO BID 06/06/19 [History] LORazepam [Ativan] 2 mg PO TID PRN 07/25/19 [History] Rivaroxaban [Xarelto] 20 mg PO DAILY 07/25/19 [History] busPIRone HCl [Buspirone HCl] 15 mg PO BID 07/25/19 [History] traZODone HCl [Trazodone HCl] 100 mg PO BEDTIME PRN 07/25/19 [History] Docusate Sodium [Colace] 100 mg PO BID PRN cap 07/27/19 [Rx] Fluticasone/Salmeterol [Advair 250-50] 1 puff INH BID diskus 07/27/19 [Rx] Furosemide [Lasix] 40 mg PO DAILY 30 Days #30 tablet 07/27/19 [Rx] Midodrine 5 mg PO BID 30 Days #30 tablet 07/27/19 [Rx] Morphine 15 mg PO Q6H PRN 30 Days #120 tablet 07/27/19 [Rx] Morphine [MS Contin] 30 mg PO Q12HR 30 Days #60 tab.er 07/27/19 [Rx] Spironolactone [Aldactone] 50 mg PO DAILY 60 Days #60 tablet 07/27/19 [Rx] Past Medical History HEENT History: Reports: Other (See Below) Other HEENT History: has upper permanent dental bridge Cardiovascular History: Reports: Hypertension Respiratory History: Reports: COPD Gastrointestinal History: Reports: Cirrhosis, Hepatitis, Other (See Below) ( Grade 1 esophageal varices, portal vein thrombus) Other Gastrointestinal History: states has been treated for Hepatitis and is now clear Genitourinary History: Reports: UTI, Recurrent STAFFING RN History: Reports: Other STAFFING RN History: 4 Musculoskeletal History: Reports: Fracture Other Musculoskeletal History: right ankle Neurological History: Reports: Other (See Below) Other Neuro History: essential tremor Psychiatric History: Reports: Anxiety, Depression Endocrine/Metabolic History: Reports: Hypothyroidism, Obesity/BMI 30+ Other Endocrine/Metabolic History: Hypothyroidism Hematologic History: Reports: Other (See Below) Other Hematologic History: currently has low platlets Immunologic History: Reports: None Oncologic (Cancer) History: Reports: Liver Other Oncologic History: currently receiving treatment Dermatologic History: Reports: None - Infectious Disease History Infectious Disease History: Reports: Chicken Pox, Measles, Mumps Other Infectious Disease History: Pt has had treatment for Hep. C - Past Surgical History Head Surgeries/Procedures: Reports: None GI Surgical History: Reports: Bariatric Procedure, Cholecystectomy, Colon, Colonoscopy Female Surgical History: Reports: Hysterectomy, Tubal Ligation Musculoskeletal Surgical History: Reports: ORIF Other Musculoskeletal Surgeries/Procedures:: ORIF right ankle with bone graft- thinks she has "plastic" implants in her ankle Social & Family History - Family History Family Medical History: Noncontributory HEENT: Reports: None Cardiac: Reports: None Respiratory: Reports: COPD GI: Reports: None : Reports: None Endocrine/Metabolic: Reports: Diabetes, Type I, Diabetes, type II - Caffeine Use Caffeine Use: Reports: None Caffeine Use Comment: occasionally - Living Situation & Occupation Living situation: Reports: ED ROS GENERAL - Review of Systems Review Of Systems: ROS reveals no pertinent complaints other than HPI. ED EXAM, GENERAL - Physical Exam Exam: See Below (See dictation) Course - Vital Signs Last Recorded V/S: Last Vital Signs Temp 36.2 C 08/22/19 17:18 Pulse 76 08/22/19 17:18 Resp 18 09/25/19 17:18 BP 146/74 H 08/22/19 17:18 Pulse Ox 94 L 08/22/19 17:18 - Orders/Labs/Meds Orders: Active Orders 24 hr Category Date Time Status EKG Documentation Completion [RC] STAT Care 08/22/19 17:22 Active CULTURE BLOOD [BC] Stat Lab 08/22/19 17:43 Received CULTURE BLOOD [BC] Stat Lab 08/22/19 17:54 Received UA RFX DARSHAN AND CULT IF INDIC [URIN] Stat Lab 08/22/19 17:21 Ordered Potassium Chloride Riders [KCL 40 MEQ in Water 100 ML] Med 08/22/19 18:32 Active 40 meq Premix Bag 1 bag IV ONETIME Sodium Chloride 0.9% [Normal Saline] 1,000 ml Med 08/22/19 17:30 Active IV ASDIRECTED Sodium Chloride 0.9% [Saline Flush] Med 08/22/19 17:21 Active 10 ml FLUSH ASDIRECTED PRN Sodium Chloride 0.9% [Saline Flush] Med 08/22/19 17:21 Active 2.5 ml FLUSH ASDIRECTED PRN Blood Culture x2 Reflex Set [OM.PC] Stat Oth 08/22/19 17:22 Ordered Saline Lock Insert [OM.PC] Stat Oth 08/22/19 17:21 Ordered Medication Orders Sodium Chloride (Normal Saline) 1,000 mls @ 125 mls/hr IV ASDIRECTED SHARON Last Admin: 08/22/19 17:45 Dose: 125 mls/hr Potassium Chloride 40 meq/ (Premix) 100 mls @ 25 mls/hr IV ONETIME ONE Stop: 08/22/19 22:31 Sodium Chloride (Saline Flush) 10 ml FLUSH ASDIRECTED PRN PRN Reason: Keep Vein Open Last Admin: 08/22/19 17:45 Dose: 10 ml Sodium Chloride (Saline Flush) 2.5 ml FLUSH ASDIRECTED PRN PRN Reason: Keep Vein Open Last Admin: 08/22/19 17:45 Dose: 2.5 ml Labs: Laboratory Tests 08/22/19 08/22/19 08/22/19 Range/Units 17:14 17:43 17:43 WBC 10.50 (4.0-11.0) K/uL RBC 4.40 (4.30-5.90) M/uL Hgb 11.8 L (12.0-16.0) g/dL Hct 35.0 L (36.0-46.0) % MCV 79.5 L (80.0-98.0) fL MCH 26.8 L (27.0-32.0) pg MCHC 33.7 (31.0-37.0) g/dL RDW Std Deviation 49.7 (28.0-62.0) fl RDW Coeff of Varsha 17 H (11.0-15.0) % Plt Count 109 L (150-400) K/uL MPV 8.90 (7.40-12.00) fL Neut % (Auto) 81.0 H (48.0-80.0) % Lymph % (Auto) 8.7 L (16.0-40.0) % [place] % (Auto) 9.8 (0.0-15.0) % Eos % (Auto) 0.3 (0.0-7.0) % Baso % (Auto) 0.2 (0.0-1.5) % Neut # (Auto) 8.5 H (1.4-5.7) K/uL Lymph # (Auto) 0.9 (0.6-2.4) K/uL [place] # (Auto) 1.0 H (0.0-0.8) K/uL Eos # (Auto) 0.0 (0.0-0.7) K/uL Baso # (Auto) 0.0 (0.0-0.1) K/uL Nucleated RBC % 0.0 /100WBC Nucleated RBCs # 0 K/uL INR ABG pH 7.552 H (7.35-7.45) ABG pCO2 37 (35-45) mmHG ABG pO2 63 L (75-100) mmHG ABG HCO3 32 H (22-26) mEq/L ABG Total CO2 28.7 ABG Base Excess 9.1 H (-2.0-2.0) Sodium 131 L (136-145) mmol/L Potassium 2.4 L* (3.5-5.1) mmol/L Chloride 90 L (98-107) mmol/L Carbon Dioxide 29.8 (21.0-32.0) mmol/L BUN 14 (7.0-18.0) mg/dL Creatinine 1.1 H (0.6-1.0) mg/dL Est Cr Clr Drug Dosing 46.38 mL/min Estimated GFR (MDRD) 50.5 ml/min Glucose 106 (74-106) mg/dL Calcium 8.3 L (8.5-10.1) mg/dL Total Bilirubin 1.4 H (0.2-1.0) mg/dL AST 5 L (15-37) IU/L ALT 16 (14-63) IU/L Alkaline Phosphatase 281 H (46-116) U/L Ammonia (19-54) ug/dL Troponin I 0.193 H* (0.000-0.056) ng/mL Total Protein 7.1 (6.4-8.2) g/dL Albumin 2.4 L (3.4-5.0) g/dL Globulin 4.7 H (2.6-4.0) g/dL Albumin/Globulin Ratio 0.5 L (0.9-1.6) 08/22/19 08/22/19 Range/Units 17:43 17:43 WBC (4.0-11.0) K/uL RBC (4.30-5.90) M/uL Hgb (12.0-16.0) g/dL Hct (36.0-46.0) % MCV (80.0-98.0) fL MCH (27.0-32.0) pg MCHC (31.0-37.0) g/dL RDW Std Deviation (28.0-62.0) fl RDW Coeff of Varsha (11.0-15.0) % Plt Count (150-400) K/uL MPV (7.40-12.00) fL Neut % (Auto) (48.0-80.0) % Lymph % (Auto) (16.0-40.0) % [place] % (Auto) (0.0-15.0) % Eos % (Auto) (0.0-7.0) % Baso % (Auto) (0.0-1.5) % Neut # (Auto) (1.4-5.7) K/uL Lymph # (Auto) (0.6-2.4) K/uL [place] # (Auto) (0.0-0.8) K/uL Eos # (Auto) (0.0-0.7) K/uL Baso # (Auto) (0.0-0.1) K/uL Nucleated RBC % /100WBC Nucleated RBCs # K/uL INR 1.55 ABG pH (7.35-7.45) ABG pCO2 (35-45) mmHG ABG pO2 (75-100) mmHG ABG HCO3 (22-26) mEq/L ABG Total CO2 ABG Base Excess (-2.0-2.0) Sodium (136-145) mmol/L Potassium (3.5-5.1) mmol/L Chloride (98-107) mmol/L Carbon Dioxide (21.0-32.0) mmol/L BUN (7.0-18.0) mg/dL Creatinine (0.6-1.0) mg/dL Est Cr Clr Drug Dosing mL/min Estimated GFR (MDRD) ml/min Glucose (74-106) mg/dL Calcium (8.5-10.1) mg/dL Total Bilirubin (0.2-1.0) mg/dL AST (15-37) IU/L ALT (14-63) IU/L Alkaline Phosphatase (46-116) U/L Ammonia 29 (19-54) ug/dL Troponin I (0.000-0.056) ng/mL Total Protein (6.4-8.2) g/dL Albumin (3.4-5.0) g/dL Globulin (2.6-4.0) g/dL Albumin/Globulin Ratio (0.9-1.6) Meds: Medications Generic Name Dose Route Start Last Admin Trade Name Freq PRN Reason Stop Dose Admin Sodium Chloride 1,000 mls @ 125 mls/hr 08/22/19 17:30 08/22/19 17:45 Normal Saline IV 125 mls/hr ASDIRECTED SHARON Administration Potassium Chloride 40 meq/ 100 mls @ 25 mls/hr 08/22/19 18:32 Premix IV 08/22/19 22:31 ONETIME ONE Sodium Chloride 10 ml 08/22/19 17:21 08/22/19 17:45 Saline Flush FLUSH 10 ml ASDIRECTED PRN Administration Keep Vein Open Sodium Chloride 2.5 ml 08/22/19 17:21 08/22/19 17:45 Saline Flush FLUSH 2.5 ml ASDIRECTED PRN Administration Keep Vein Open Discontinued Medications Generic Name Dose Route Start Last Admin Trade Name Bety PRN Reason Stop Dose Admin Lorazepam 1 mg 08/22/19 17:20 08/22/19 17:45 Ativan IVPUSH 08/22/19 17:21 1 mg ONETIME ONE Administration Morphine Sulfate 2 mg 08/22/19 18:29 08/22/19 18:37 Morphine IVPUSH 08/22/19 18:30 2 mg ONETIME ONE Administration Departure - Departure Time of Disposition: 18:44 Disposition: Refer to Observation Condition: Fair Clinical Impression: Hypokalemia, History of liver cancer, COLD, Chronic obstructive lung disease - Discharge Information Forms: ED Department Discharge - My Orders Last 24 Hours: My Active Orders 08/22/19 17:21 UA RFX DARSHAN AND CULT IF INDIC [URIN] Stat Sodium Chloride 0.9% [Saline Flush] 10 ml FLUSH ASDIRECTED PRN Sodium Chloride 0.9% [Saline Flush] 2.5 ml FLUSH ASDIRECTED PRN Saline Lock Insert [OM.PC] Stat 08/22/19 17:22 EKG Documentation Completion [RC] STAT Blood Culture x2 Reflex Set [OM.PC] Stat 08/22/19 17:30 Sodium Chloride 0.9% [Normal Saline] 1,000 ml IV ASDIRECTED 08/22/19 17:43 CULTURE BLOOD [BC] Stat 08/22/19 17:54 CULTURE BLOOD [BC] Stat 08/22/19 18:32 Potassium Chloride Riders [KCL 40 MEQ in Water 100 ML] 40 meq Premix Bag 1 bag IV ONETIME - Assessment/Plan Last 24 Hours: My Active Orders 08/22/19 17:21 UA RFX DARSHAN AND CULT IF INDIC [URIN] Stat Sodium Chloride 0.9% [Saline Flush] 10 ml FLUSH ASDIRECTED PRN Sodium Chloride 0.9% [Saline Flush] 2.5 ml FLUSH ASDIRECTED PRN Saline Lock Insert [OM.PC] Stat 08/22/19 17:22 EKG Documentation Completion [RC] STAT Blood Culture x2 Reflex Set [OM.PC] Stat 08/22/19 17:30 Sodium Chloride 0.9% [Normal Saline] 1,000 ml IV ASDIRECTED 08/22/19 17:43 CULTURE BLOOD [BC] Stat 08/22/19 17:54 CULTURE BLOOD [BC] Stat 08/22/19 18:32 Potassium Chloride Riders [KCL 40 MEQ in Water 100 ML] 40 meq Premix Bag 1 bag IV ONETIME
[2019-08-22] MEDS ORDERED: Sodium Chloride 0.9% 1,000 ML IV SCH (17:30)
--- NOTE | 2019-08-22 17:47 | CR ---
INDICATION: weakness TECHNIQUE: Chest 1 view. COMPARISON: 06/06/19 FINDINGS: Cardiovascular and mediastinum: Heart size and vasculature are normal in caliber and appearance. Mediastinum is within normal limits. Lungs and pleural space: Lungs are clear. No sign of infiltrate or mass. No sign of pleural effusion. No pneumothorax. Bones and soft tissues: No significant findings. IMPRESSION: Unremarkable chest. Dictated by: Kenroy Wyman MD @ 08/22/2019 17:46:20 (Electronically Signed)
[2019-08-22 18:24] LABS: CARBON DIOXIDE,CO2 29.8 mmol/L (21.0-32.0)
[2019-08-22] MEDS ORDERED: Morphine 2 MG/ML Syringe IVPUSH ONE (18:29)
[2019-08-22 18:30] LABS: POTASSIUM,K 2.4 mmol/L (3.5-5.1)
[2019-08-22] MEDS ORDERED: Potassium Chloride Riders 40 MEQ in Premix Bag 1 BAG IV ONE (18:32)
[2019-08-22] MEDS ORDERED: Potassium Chloride 20 MEQ Tab.ER PO ONE (21:49)
[2019-08-22] MEDS ORDERED: oxyCODONE 5 MG Tab PO PRN (22:05)
[2019-08-22] MEDS ORDERED: Ondansetron 4 MG Tab.DIS PO PRN (22:05)
[2019-08-22] MEDS ORDERED: Morphine 10 MG/ML Syringe IVPUSH PRN (22:05)
[2019-08-22] MEDS ORDERED: Magnesium Sulfate/Water 2 GM in Premix Bag 1 BAG IV ONE (22:12)
--- NOTE | 2019-08-22 22:13 | PCM.HP.2 ---
H&P History of Present Illness - General Date of Service: 08/22/19 Admit Problem/Dx: Admission Diagnosis/Problem Admission Diagnosis/Problem Hypokalemia - History of Present Illness Initial Comments - Free Text/Narative: 59 year old female with pmh of Hepatitis C, metastatic liver carcinoma, COPD, and portal vein thrombus who presents to the ED with complaints of abdominal pain. Patient reports RUQ abdominal pain for past two years. Patient states the pain became more intense today. She denies any fevers, nausea, or vomiting. She does report dark stools. Right Upper Abdomen Pain Score (Numeric/FACES): 7 - Related Data Allergies/Adverse Reactions: Allergies Allergy/AdvReac Type Severity Reaction Status Date / Time sulfamethoxazole Allergy Other Verified 08/22/19 21: [From Bactrim] trimethoprim [From Bactrim] Allergy Other Verified 08/22/19 21:19 Home Medications: Home Meds Furosemide [Lasix] 20 mg PO DAILY 02/14/16 [History] Sertraline [Zoloft] 100 mg PO DAILY 08/21/16 [History] Albuterol/Ipratropium [DuoNeb 3.0-0.5 MG/3 ML] 2.5 mg NEB Q6H 03/12/17 [History] Albuterol Sulfate [Proair Hfa] 1 puff INH QID 04/13/19 [History] Ascorbic Acid [Vitamin C] 1,000 mg PO DAILY 04/13/19 [History] Cholecalciferol (Vitamin D3) [Vitamin D3] 5,000 unit PO DAILY 04/13/19 [History] Cyanocobalamin (Vitamin B-12) [B-12] 1,000 mcg PO DAILY 04/13/19 [History] Ferrous Sulfate 325 mg PO DAILY 04/13/19 [History] Folic Acid 0.4 mg PO DAILY 04/13/19 [History] Levothyroxine 200 mcg PO DAILY 04/13/19 [History] Losartan [Cozaar] 50 mg PO BID 04/13/19 [History] Primidone 50 mg PO BEDTIME 04/13/19 [History] Thiamine HCl 250 mg PO DAILY 04/13/19 [History] Lactulose 10 gm PO BID 06/06/19 [History] LORazepam [Ativan] 2 mg PO TID PRN 07/25/19 [History] Rivaroxaban [Xarelto] 20 mg PO DAILY 07/25/19 [History] busPIRone HCl [Buspirone HCl] 15 mg PO BID 07/25/19 [History] traZODone HCl [Trazodone HCl] 100 mg PO BEDTIME PRN 07/25/19 [History] Fluticasone/Salmeterol [Advair 250-50] 1 puff INH BID diskus 07/27/19 [Rx] Furosemide [Lasix] 40 mg PO DAILY 30 Days #30 tablet 07/27/19 [Rx] Midodrine 5 mg PO BID 30 Days #30 tablet 07/27/19 [Rx] Morphine 15 mg PO Q6H PRN 30 Days #120 tablet 07/27/19 [Rx] Morphine [MS Contin] 30 mg PO Q12HR 30 Days #60 tab.er 07/27/19 [Rx] Spironolactone [Aldactone] 50 mg PO DAILY 60 Days #60 tablet 07/27/19 [Rx] Past Medical History HEENT History: Reports: Other (See Below) Other HEENT History: has upper permanent dental bridge Cardiovascular History: Reports: Hypertension Respiratory History: Reports: COPD Gastrointestinal History: Reports: Cirrhosis, Hepatitis, Other (See Below) Other Gastrointestinal History: states has been treated for Hepatitis and is now clear Genitourinary History: Reports: UTI, Recurrent 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 OB/BYN History: 4 Musculoskeletal History: Reports: Fracture Other Musculoskeletal History: right ankle Neurological History: Reports: Other (See Below) Other Neuro History: essential tremor Psychiatric History: Reports: Anxiety, Depression Endocrine/Metabolic History: Reports: Hypothyroidism, Obesity/BMI 30+ Other Endocrine/Metabolic History: Hypothyroidism Hematologic History: Reports: Other (See Below) Other Hematologic History: currently has low platlets Immunologic History: Reports: None Oncologic (Cancer) History: Reports: Liver Other Oncologic History: currently receiving treatment Dermatologic History: Reports: None - Infectious Disease History Infectious Disease History: Reports: Chicken Pox, Measles, Mumps Other Infectious Disease History: Pt has had treatment for Hep. C - Past Surgical History Head Surgeries/Procedures: Reports: None GI Surgical History: Reports: Bariatric Procedure, Cholecystectomy, Colon, Colonoscopy Female Surgical History: Reports: Hysterectomy, Tubal Ligation Musculoskeletal Surgical History: Reports: ORIF Other Musculoskeletal Surgeries/Procedures:: ORIF right ankle with bone graft- thinks she has "plastic" implants in her ankle Social & Family History - Family History Family Medical History: Noncontributory HEENT: Reports: None Cardiac: Reports: None Respiratory: Reports: COPD GI: Reports: None : Reports: None Endocrine/Metabolic: Reports: Diabetes, Type I, Diabetes, type II - Tobacco Use Smoking Status *Q: Current Some Day Smoker Years of Tobacco use: 20 Packs/Tins Daily: 1 - Caffeine Use Caffeine Use: Reports: Coffee, Soda Caffeine Use Comment: occasionally - Recreational Drug Use Recreational Drug Use: No - Living Situation & Occupation Living situation: Reports: H&P Review of Systems - Review of Systems: Review Of Systems: ROS reveals no pertinent complaints other than HPI. Exam - Exam Exam: See Below - Vital Signs Vital Signs: Last Vital Signs Temp 36.7 C 08/22/19 20:00 Pulse 75 08/22/19 20:00 Resp 19 08/22/19 20:00 BP 162/90 H 08/22/19 20:00 Pulse Ox 94 L 08/22/19 20:00 Weight: 91.58 kg - Exam General: Alert, Oriented HEENT: Mucosa Moist & [place] Neck: Supple Lungs: Clear to Auscultation, Normal Respiratory Effort Cardiovascular: Regular Rate, Regular Rhythm GI/Abdominal Exam: Soft, Tender (Right upper quadrant), Other (obese, moderate amount of ascities compared to last admission). No: Guarding, Rigid, Rebound Extremities: Pedal Edema Skin: Warm, Dry, Intact - Patient Data Lab Results Last 24 hrs: Laboratory Results - last 24 hr 08/22/19 08/22/19 08/22/19 Range/Units 17:14 17:43 17:43 WBC 10.50 (4.0-11.0) K/uL RBC 4.40 (4.30-5.90) M/uL Hgb 11.8 L (12.0-16.0) g/dL Hct 35.0 L (36.0-46.0) % MCV 79.5 L (80.0-98.0) fL MCH 26.8 L (27.0-32.0) pg MCHC 33.7 (31.0-37.0) g/dL RDW Std Deviation 49.7 (28.0-62.0) fl RDW Coeff of Varsha 17 H (11.0-15.0) % Plt Count 109 L (150-400) K/uL MPV 8.90 (7.40-12.00) fL Neut % (Auto) 81.0 H (48.0-80.0) % Lymph % (Auto) 8.7 L (16.0-40.0) % [place] % (Auto) 9.8 (0.0-15.0) % Eos % (Auto) 0.3 (0.0-7.0) % Baso % (Auto) 0.2 (0.0-1.5) % Neut # (Auto) 8.5 H (1.4-5.7) K/uL Lymph # (Auto) 0.9 (0.6-2.4) K/uL [place] # (Auto) 1.0 H (0.0-0.8) K/uL Eos # (Auto) 0.0 (0.0-0.7) K/uL Baso # (Auto) 0.0 (0.0-0.1) K/uL Nucleated RBC % 0.0 /100WBC Nucleated RBCs # 0 K/uL INR ABG pH 7.552 H (7.35-7.45) ABG pCO2 37 (35-45) mmHG ABG pO2 63 L (75-100) mmHG ABG HCO3 32 H (22-26) mEq/L ABG Total CO2 28.7 ABG Base Excess 9.1 H (-2.0-2.0) Sodium 131 L (136-145) mmol/L Potassium 2.4 L* (3.5-5.1) mmol/L Chloride 90 L (98-107) mmol/L Carbon Dioxide 29.8 (21.0-32.0) mmol/L BUN 14 (7.0-18.0) mg/dL Creatinine 1.1 H (0.6-1.0) mg/dL Est Cr Clr Drug Dosing 46.38 mL/min Estimated GFR (MDRD) 50.5 ml/min Glucose 106 (74-106) mg/dL Calcium 8.3 L (8.5-10.1) mg/dL Magnesium (1.8-2.4) mg/dL Total Bilirubin 1.4 H (0.2-1.0) mg/dL AST 5 L (15-37) IU/L ALT 16 (14-63) IU/L Alkaline Phosphatase 281 H (46-116) U/L Ammonia (19-54) ug/dL Troponin I 0.193 H* (0.000-0.056) ng/mL Total Protein 7.1 (6.4-8.2) g/dL Albumin 2.4 L (3.4-5.0) g/dL Globulin 4.7 H (2.6-4.0) g/dL Albumin/Globulin Ratio 0.5 L (0.9-1.6) Urine Color Urine Appearance Urine pH (5.0-8.0) Ur Specific [place] (1.001-1.035) Urine Protein (NEGATIVE) mg/dL Urine Glucose (UA) (NEGATIVE) mg/dL Urine Ketones (NEGATIVE) mg/dL Urine Occult Blood (NEGATIVE) Urine Nitrite (NEGATIVE) Urine Bilirubin (NEGATIVE) Urine Ictotest Urine Urobilinogen (<2.0) EU/dL Ur Leukocyte Esterase (NEGATIVE) Urine RBC (0-2/HPF) Urine WBC (0-5/HPF) Ur Epithelial Cells (NONE-FEW) Urine Bacteria (NEGATIVE) Urine Mucus (NONE-MOD) 08/22/19 08/22/19 08/22/19 Range/Units 17:43 17:43 17:43 WBC (4.0-11.0) K/uL RBC (4.30-5.90) M/uL Hgb (12.0-16.0) g/dL Hct (36.0-46.0) % MCV (80.0-98.0) fL MCH (27.0-32.0) pg MCHC (31.0-37.0) g/dL RDW Std Deviation (28.0-62.0) fl RDW Coeff of Varsha (11.0-15.0) % Plt Count (150-400) K/uL MPV (7.40-12.00) fL Neut % (Auto) (48.0-80.0) % Lymph % (Auto) (16.0-40.0) % [place] % (Auto) (0.0-15.0) % Eos % (Auto) (0.0-7.0) % Baso % (Auto) (0.0-1.5) % Neut # (Auto) (1.4-5.7) K/uL Lymph # (Auto) (0.6-2.4) K/uL [place] # (Auto) (0.0-0.8) K/uL Eos # (Auto) (0.0-0.7) K/uL Baso # (Auto) (0.0-0.1) K/uL Nucleated RBC % /100WBC Nucleated RBCs # K/uL INR 1.55 ABG pH (7.35-7.45) ABG pCO2 (35-45) mmHG ABG pO2 (75-100) mmHG ABG HCO3 (22-26) mEq/L ABG Total CO2 ABG Base Excess (-2.0-2.0) Sodium (136-145) mmol/L Potassium (3.5-5.1) mmol/L Chloride (98-107) mmol/L Carbon Dioxide (21.0-32.0) mmol/L BUN (7.0-18.0) mg/dL Creatinine (0.6-1.0) mg/dL Est Cr Clr Drug Dosing mL/min Estimated GFR (MDRD) ml/min Glucose (74-106) mg/dL Calcium (8.5-10.1) mg/dL Magnesium 1.6 L (1.8-2.4) mg/dL Total Bilirubin (0.2-1.0) mg/dL AST (15-37) IU/L ALT (14-63) IU/L Alkaline Phosphatase (46-116) U/L Ammonia 29 (19-54) ug/dL Troponin I (0.000-0.056) ng/mL Total Protein (6.4-8.2) g/dL Albumin (3.4-5.0) g/dL Globulin (2.6-4.0) g/dL Albumin/Globulin Ratio (0.9-1.6) Urine Color Urine Appearance Urine pH (5.0-8.0) Ur Specific [place] (1.001-1.035) Urine Protein (NEGATIVE) mg/dL Urine Glucose (UA) (NEGATIVE) mg/dL Urine Ketones (NEGATIVE) mg/dL Urine Occult Blood (NEGATIVE) Urine Nitrite (NEGATIVE) Urine Bilirubin (NEGATIVE) Urine Ictotest Urine Urobilinogen (<2.0) EU/dL Ur Leukocyte Esterase (NEGATIVE) Urine RBC (0-2/HPF) Urine WBC (0-5/HPF) Ur Epithelial Cells (NONE-FEW) Urine Bacteria (NEGATIVE) Urine Mucus (NONE-MOD) 08/22/19 Range/Units 20:20 WBC (4.0-11.0) K/uL RBC (4.30-5.90) M/uL Hgb (12.0-16.0) g/dL Hct (36.0-46.0) % MCV (80.0-98.0) fL MCH (27.0-32.0) pg MCHC (31.0-37.0) g/dL RDW Std Deviation (28.0-62.0) fl RDW Coeff of Varsha (11.0-15.0) % Plt Count (150-400) K/uL MPV (7.40-12.00) fL Neut % (Auto) (48.0-80.0) % Lymph % (Auto) (16.0-40.0) % [place] % (Auto) (0.0-15.0) % Eos % (Auto) (0.0-7.0) % Baso % (Auto) (0.0-1.5) % Neut # (Auto) (1.4-5.7) K/uL Lymph # (Auto) (0.6-2.4) K/uL [place] # (Auto) (0.0-0.8) K/uL Eos # (Auto) (0.0-0.7) K/uL Baso # (Auto) (0.0-0.1) K/uL Nucleated RBC % /100WBC Nucleated RBCs # K/uL INR ABG pH (7.35-7.45) ABG pCO2 (35-45) mmHG ABG pO2 (75-100) mmHG ABG HCO3 (22-26) mEq/L ABG Total CO2 ABG Base Excess (-2.0-2.0) Sodium (136-145) mmol/L Potassium (3.5-5.1) mmol/L Chloride (98-107) mmol/L Carbon Dioxide (21.0-32.0) mmol/L BUN (7.0-18.0) mg/dL Creatinine (0.6-1.0) mg/dL Est Cr Clr Drug Dosing mL/min Estimated GFR (MDRD) ml/min Glucose (74-106) mg/dL Calcium (8.5-10.1) mg/dL Magnesium (1.8-2.4) mg/dL Total Bilirubin (0.2-1.0) mg/dL AST (15-37) IU/L ALT (14-63) IU/L Alkaline Phosphatase (46-116) U/L Ammonia (19-54) ug/dL Troponin I (0.000-0.056) ng/mL Total Protein (6.4-8.2) g/dL Albumin (3.4-5.0) g/dL Globulin (2.6-4.0) g/dL Albumin/Globulin Ratio (0.9-1.6) Urine Color YELLOW Urine Appearance CLEAR Urine pH 7.0 (5.0-8.0) Ur Specific [place] 1.010 (1.001-1.035) Urine Protein NEGATIVE (NEGATIVE) mg/dL Urine Glucose (UA) NEGATIVE (NEGATIVE) mg/dL Urine Ketones TRACE H (NEGATIVE) mg/dL Urine Occult Blood NEGATIVE (NEGATIVE) Urine Nitrite NEGATIVE (NEGATIVE) Urine Bilirubin SMALL H (NEGATIVE) Urine Ictotest POSITIVE Urine Urobilinogen 0.2 (<2.0) EU/dL Ur Leukocyte Esterase SMALL H (NEGATIVE) Urine RBC NONE SEEN (0-2/HPF) Urine WBC 0-3 (0-5/HPF) Ur Epithelial Cells FEW (NONE-FEW) Urine Bacteria 1+ H (NEGATIVE) Urine Mucus LIGHT (NONE-MOD) Result Diagrams: 08/24/19 04:55 08/24/19 04:55 Problem List Initiated/Reviewed/Updated: Yes Orders Last 24hrs: Active Orders 24 hr Category Date Time Status Patient Status [ADT] Stat ADT 08/22/19 18:46 Active EKG Documentation Completion [RC] STAT Care 08/22/19 17:22 Active Abdomen Pelvis wo Cont [CT] Routine Exams 08/22/19 22:03 Ordered CULTURE BLOOD [BC] Stat Lab 08/22/19 17:43 Received CULTURE BLOOD [BC] Stat Lab 08/22/19 17:54 Received CULTURE URINE [RM] Stat Lab 08/22/19 20:20 Received TROPONIN I [CHEM] Q6H Lab 08/23/19 00:00 Ordered TROPONIN I [CHEM] Q6H Lab 08/23/19 06:00 Ordered Potassium Chloride Riders [KCL 40 MEQ in Water 100 ML] Med 08/22/19 18:32 Active 40 meq Premix Bag 1 bag IV ONETIME Sodium Chloride 0.9% [Saline Flush] Med 08/22/19 17:21 Active 10 ml FLUSH ASDIRECTED PRN Sodium Chloride 0.9% [Saline Flush] Med 08/22/19 17:21 Active 2.5 ml FLUSH ASDIRECTED PRN Blood Culture x2 Reflex Set [OM.PC] Stat Oth 08/22/19 17:22 Ordered Saline Lock Insert [OM.PC] Stat Oth 08/22/19 17:21 Ordered Medication Orders Potassium Chloride 40 meq/ (Premix) 100 mls @ 25 mls/hr IV ONETIME ONE Stop: 08/22/19 22:31 Last Admin: 08/22/19 18:58 Dose: 25 mls/hr Sodium Chloride (Saline Flush) 10 ml FLUSH ASDIRECTED PRN PRN Reason: Keep Vein Open Last Admin: 08/22/19 17:45 Dose: 10 ml Sodium Chloride (Saline Flush) 2.5 ml FLUSH ASDIRECTED PRN PRN Reason: Keep Vein Open Last Admin: 08/22/19 17:45 Dose: 2.5 ml Assessment/Plan Comment:: 59 yo female with pmh of metastatic liver carcinoma who presents with abdominal pain. Abdominal pain is likely due to cancer. We will check CT scan of the abdomen for further evaluation. Patient has an mildly elevated troponin so will continue to trend. I discussed goals of care and patient is a DNR and would not want to be transferred if conditions worsened or if she were to rule in for acute coronary syndrome. We will treat pain with morphine and Ativan as needed for tonight.
[2019-08-22] MEDS ORDERED: Morphine 2 MG/ML Syringe IVPUSH PRN (22:16)
[2019-08-22] MEDS: Morphine 2 MG/ML Syringe IVPUSH PRN (23:11)
[2019-08-22] MEDS: Pantoprazole 40 MG in Sodium Chloride 0.9% 10 ML IV SCH (23:14)
--- NOTE | 2019-08-23 00:28 | CT ---
INDICATION: Abdominal pain. Liver cancer TECHNIQUE: CT abdomen and pelvis without contrast. COMPARISON: 07/23/2019 FINDINGS: Lower chest: Few small foci of ground-glass opacity in the right middle lobe and lingula. 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 Liver: A cirrhotic liver. An ill-defined mass in the inferior aspect of the medial segment of the left lobe extending to the right lobe, increased in size, measuring up to 7.9 x 6.2 cm on image 52 compared to 5.7 x 4.0 cm on the prior study. Irregular and coarse calcifications again seen along the inferolateral aspect of the mass. An ill-defined area of decreased attenuation in the region of the anterior right hepatic mass seen on the prior study, however not well delineated. Spleen: Mild splenomegaly measuring 13.5 cm craniocaudally. Pancreas: Unremarkable. Gallbladder and bile ducts: Cholecystectomy. Adrenal glands: Unremarkable. Kidneys: No hydronephrosis or definite discrete urolithiasis. GI tract: Post gastric bypass changes again seen. No high-grade mechanical bowel obstruction. Vascular structures: Atherosclerotic changes. Expanded, thrombosed portal veins again seen. Collateral vessels again noted. Lymph nodes: A prominent aortocaval lymph node on image 57 measuring 1.8 x 1.7 cm. Miscellaneous: Moderate to large ascites. A 2.3 x 1.7 cm soft tissue density in the lateral right lower abdomen, along the posterior peritoneal reflection on image 76, mildly increased in prominence, compatible with a metastatic deposit. Some induration in the omental fat could be related to ascites, although underlying carcinomatosis is not excluded. Edema in the perirectal and presacral spaces, nonspecific. Pelvic Organs: Hysterectomy. A contracted bladder. Bones: A mild compression deformity of the T12 vertebral body again seen. Degenerative changes in the spine. Partially imaged irregular sclerotic areas in the proximal right femoral medullary cavity again seen which could represent a chondroid lesion. IMPRESSION: : Cirrhosis with portal hypertension again seen. Interval increase in the size of the inferior hepatic mass. The previously seen superior right hepatic mass cannot be adequately compared to the prior study without intravenous contrast. Enlarged thrombosed portal veins again seen. Tumor involvement is not excluded. Moderate to large ascites. A right lower abdominal soft tissue density consistent with a metastatic deposit, mildly increased in prominence. Early omental carcinomatosis is difficult to exclude. An enlarged aortocaval lymph node concerning for a metastasis. Few small foci of ground-glass opacity in the right middle lobe and lingula. Correlate for a mild nonspecific infectious or inflammatory pneumonitis. Dictated by Preet Childress MD @ 08/23/2019 12:26:49 AM Please note that all CT scans at this facility use dose modulation, iterative reconstruction, and/or weight-based dosing when appropriate to reduce radiation dose to as low as reasonably achievable. Dictated by: Preet Childress MD @ 08/23/2019 00:27:11 (Electronically Signed)
[2019-08-23] MEDS: Morphine 2 MG/ML Syringe IVPUSH PRN ×5 (02:24→16:21)
[2019-08-23 06:57] LABS: CARBON DIOXIDE,CO2 29.1 mmol/L (21.0-32.0); POTASSIUM,K 2.9 mmol/L (3.5-5.1)
[2019-08-23] MEDS: Potassium Chloride 20 MEQ Tab.ER PO SCH ×2 (08:42→13:07)
[2019-08-23] MEDS: cefTRIAXone 1 GM in Premix Bag 1 BAG IV SCH (08:43)
[2019-08-23] MEDS ORDERED: Morphine 15 MG Tab PO PRN (10:07)
[2019-08-23] MEDS: Pantoprazole 40 MG in Sodium Chloride 0.9% 10 ML IV SCH ×2 (10:11→22:00)
[2019-08-23] MEDS: Midodrine 5 MG Tab PO SCH ×2 (10:25→20:38)
[2019-08-23] MEDS: Morphine 30 MG Tab.ER PO SCH ×2 (10:25→20:38)
[2019-08-23] MEDS: Lactulose Soln 10 GM/15 ML 15 ML UD Cup PO SCH ×2 (10:26→20:39)
[2019-08-23] MEDS: LORazepam 1 MG Tab PO PRN (10:26)
[2019-08-23] MEDS: Fluticasone/Salmeterol 250-50 MCG Inhalation Powder 14/Diskus INH SCH ×2 (10:36→21:29)
[2019-08-23] MEDS: Albuterol/Ipratropium 3.0-0.5 MG/3 ML Neb Soln NEB SCH ×4 (10:36→21:29)
--- NOTE | 2019-08-23 11:25 | PCM.PN ---
- General Info Date of Service: 08/23/19 Admission Dx/Problem (Free Text): Admission Diagnosis/Problem Admission Diagnosis/Problem Hypokalemia Subjective Update: Feeling ok today. Pain continues along with anxiety. No chest pain. Mild wheezing with SOB. Functional Status: Reports: Tolerating Diet, Urinating. Denies: Pain Controlled , Ambulating - Review of Systems General: Reports: Weakness, Malaise HEENT: Reports: No Symptoms. Denies: Headaches, Sore Throat, Visual Changes Pulmonary: Reports: Shortness of Breath, Wheezing. Denies: Cough Cardiovascular: Reports: Dyspnea on Exertion. Denies: Chest Pain Gastrointestinal: Reports: Abdominal Pain. Denies: Nausea, Vomiting Genitourinary: Reports: Flank Pain. Denies: Dysuria, Frequency, Burning Musculoskeletal: Reports: Back Pain, Leg Pain Neurological: Reports: No Symptoms Psychiatric: Reports: No Symptoms - Patient Data Vitals - Most Recent: Last Vital Signs Temp 98.0 F 08/23/19 08:15 Pulse 76 08/23/19 08:15 Resp 18 08/23/19 08:15 BP 116/63 08/23/19 08:15 Pulse Ox 92 L 08/23/19 08:15 Weight - Most Recent: 91.58 kg I&O - Last 24 Hours: Intake & Output 08/22/19 08/23/19 08/23/19 22:59 06:59 14:59 Intake Total 1210 Output Total 300 Balance 910 Lab Results Last 24 Hours: Laboratory Results - last 24 hr 08/22/19 08/22/19 08/22/19 Range/Units 17:14 17:43 17:43 WBC 10.50 (4.0-11.0) K/uL RBC 4.40 (4.30-5.90) M/uL Hgb 11.8 L (12.0-16.0) g/dL Hct 35.0 L (36.0-46.0) % MCV 79.5 L (80.0-98.0) fL MCH 26.8 L (27.0-32.0) pg MCHC 33.7 (31.0-37.0) g/dL RDW Std Deviation 49.7 (28.0-62.0) fl RDW Coeff of Varsha 17 H (11.0-15.0) % Plt Count 109 L (150-400) K/uL MPV 8.90 (7.40-12.00) fL Neut % (Auto) 81.0 H (48.0-80.0) % Lymph % (Auto) 8.7 L (16.0-40.0) % [place] % (Auto) 9.8 (0.0-15.0) % Eos % (Auto) 0.3 (0.0-7.0) % Baso % (Auto) 0.2 (0.0-1.5) % Neut # (Auto) 8.5 H (1.4-5.7) K/uL Lymph # (Auto) 0.9 (0.6-2.4) K/uL [place] # (Auto) 1.0 H (0.0-0.8) K/uL Eos # (Auto) 0.0 (0.0-0.7) K/uL Baso # (Auto) 0.0 (0.0-0.1) K/uL Add Manual Diff Neutrophils % (Manual) (48.0-80.0) % Band Neutrophils % % Lymphocytes % (Manual) (16.0-40.0) % Monocytes % (Manual) (0.0-15.0) % Nucleated RBC % 0.0 /100WBC Absolute Seg Neuts (1.4-5.7) Band Neutrophils # Lymphocytes # (Manual) (0.6-2.4) Monocytes # (Manual) (0.0-0.8) Nucleated RBCs # 0 K/uL INR ABG pH 7.552 H (7.35-7.45) ABG pCO2 37 (35-45) mmHG ABG pO2 63 L (75-100) mmHG ABG HCO3 32 H (22-26) mEq/L ABG Total CO2 28.7 ABG Base Excess 9.1 H (-2.0-2.0) Sodium 131 L (136-145) mmol/L Potassium 2.4 L* (3.5-5.1) mmol/L Chloride 90 L (98-107) mmol/L Carbon Dioxide 29.8 (21.0-32.0) mmol/L BUN 14 (7.0-18.0) mg/dL Creatinine 1.1 H (0.6-1.0) mg/dL Est Cr Clr Drug Dosing 46.38 mL/min Estimated GFR (MDRD) 50.5 ml/min Glucose 106 (74-106) mg/dL Calcium 8.3 L (8.5-10.1) mg/dL Magnesium (1.8-2.4) mg/dL Total Bilirubin 1.4 H (0.2-1.0) mg/dL AST 5 L (15-37) IU/L ALT 16 (14-63) IU/L Alkaline Phosphatase 281 H (46-116) U/L Ammonia (19-54) ug/dL Troponin I 0.193 H* (0.000-0.056) ng/mL Total Protein 7.1 (6.4-8.2) g/dL Albumin 2.4 L (3.4-5.0) g/dL Globulin 4.7 H (2.6-4.0) g/dL Albumin/Globulin Ratio 0.5 L (0.9-1.6) Urine Color Urine Appearance Urine pH (5.0-8.0) Ur Specific [place] (1.001-1.035) Urine Protein (NEGATIVE) mg/dL Urine Glucose (UA) (NEGATIVE) mg/dL Urine Ketones (NEGATIVE) mg/dL Urine Occult Blood (NEGATIVE) Urine Nitrite (NEGATIVE) Urine Bilirubin (NEGATIVE) Urine Ictotest Urine Urobilinogen (<2.0) EU/dL Ur Leukocyte Esterase (NEGATIVE) Urine RBC (0-2/HPF) Urine WBC (0-5/HPF) Ur Epithelial Cells (NONE-FEW) Urine Bacteria (NEGATIVE) Urine Mucus (NONE-MOD) 08/22/19 08/22/19 08/22/19 Range/Units 17:43 17:43 17:43 WBC (4.0-11.0) K/uL RBC (4.30-5.90) M/uL Hgb (12.0-16.0) g/dL Hct (36.0-46.0) % MCV (80.0-98.0) fL MCH (27.0-32.0) pg MCHC (31.0-37.0) g/dL RDW Std Deviation (28.0-62.0) fl RDW Coeff of Varsha (11.0-15.0) % Plt Count (150-400) K/uL MPV (7.40-12.00) fL Neut % (Auto) (48.0-80.0) % Lymph % (Auto) (16.0-40.0) % [place] % (Auto) (0.0-15.0) % Eos % (Auto) (0.0-7.0) % Baso % (Auto) (0.0-1.5) % Neut # (Auto) (1.4-5.7) K/uL Lymph # (Auto) (0.6-2.4) K/uL [place] # (Auto) (0.0-0.8) K/uL Eos # (Auto) (0.0-0.7) K/uL Baso # (Auto) (0.0-0.1) K/uL Add Manual Diff Neutrophils % (Manual) (48.0-80.0) % Band Neutrophils % % Lymphocytes % (Manual) (16.0-40.0) % Monocytes % (Manual) (0.0-15.0) % Nucleated RBC % /100WBC Absolute Seg Neuts (1.4-5.7) Band Neutrophils # Lymphocytes # (Manual) (0.6-2.4) Monocytes # (Manual) (0.0-0.8) Nucleated RBCs # K/uL INR 1.55 ABG pH (7.35-7.45) ABG pCO2 (35-45) mmHG ABG pO2 (75-100) mmHG ABG HCO3 (22-26) mEq/L ABG Total CO2 ABG Base Excess (-2.0-2.0) Sodium (136-145) mmol/L Potassium (3.5-5.1) mmol/L Chloride (98-107) mmol/L Carbon Dioxide (21.0-32.0) mmol/L BUN (7.0-18.0) mg/dL Creatinine (0.6-1.0) mg/dL Est Cr Clr Drug Dosing mL/min Estimated GFR (MDRD) ml/min Glucose (74-106) mg/dL Calcium (8.5-10.1) mg/dL Magnesium 1.6 L (1.8-2.4) mg/dL Total Bilirubin (0.2-1.0) mg/dL AST (15-37) IU/L ALT (14-63) IU/L Alkaline Phosphatase (46-116) U/L Ammonia 29 (19-54) ug/dL Troponin I (0.000-0.056) ng/mL Total Protein (6.4-8.2) g/dL Albumin (3.4-5.0) g/dL Globulin (2.6-4.0) g/dL Albumin/Globulin Ratio (0.9-1.6) Urine Color Urine Appearance Urine pH (5.0-8.0) Ur Specific [place] (1.001-1.035) Urine Protein (NEGATIVE) mg/dL Urine Glucose (UA) (NEGATIVE) mg/dL Urine Ketones (NEGATIVE) mg/dL Urine Occult Blood (NEGATIVE) Urine Nitrite (NEGATIVE) Urine Bilirubin (NEGATIVE) Urine Ictotest Urine Urobilinogen (<2.0) EU/dL Ur Leukocyte Esterase (NEGATIVE) Urine RBC (0-2/HPF) Urine WBC (0-5/HPF) Ur Epithelial Cells (NONE-FEW) Urine Bacteria (NEGATIVE) Urine Mucus (NONE-MOD) 08/22/19 08/23/19 08/23/19 Range/Units 20:20 00:23 06:11 WBC (4.0-11.0) K/uL RBC (4.30-5.90) M/uL Hgb (12.0-16.0) g/dL Hct (36.0-46.0) % MCV (80.0-98.0) fL MCH (27.0-32.0) pg MCHC (31.0-37.0) g/dL RDW Std Deviation (28.0-62.0) fl RDW Coeff of Varsha (11.0-15.0) % Plt Count (150-400) K/uL MPV (7.40-12.00) fL Neut % (Auto) (48.0-80.0) % Lymph % (Auto) (16.0-40.0) % [place] % (Auto) (0.0-15.0) % Eos % (Auto) (0.0-7.0) % Baso % (Auto) (0.0-1.5) % Neut # (Auto) (1.4-5.7) K/uL Lymph # (Auto) (0.6-2.4) K/uL [place] # (Auto) (0.0-0.8) K/uL Eos # (Auto) (0.0-0.7) K/uL Baso # (Auto) (0.0-0.1) K/uL Add Manual Diff Neutrophils % (Manual) (48.0-80.0) % Band Neutrophils % % Lymphocytes % (Manual) (16.0-40.0) % Monocytes % (Manual) (0.0-15.0) % Nucleated RBC % /100WBC Absolute Seg Neuts (1.4-5.7) Band Neutrophils # Lymphocytes # (Manual) (0.6-2.4) Monocytes # (Manual) (0.0-0.8) Nucleated RBCs # K/uL INR ABG pH (7.35-7.45) ABG pCO2 (35-45) mmHG ABG pO2 (75-100) mmHG ABG HCO3 (22-26) mEq/L ABG Total CO2 ABG Base Excess (-2.0-2.0) Sodium (136-145) mmol/L Potassium (3.5-5.1) mmol/L Chloride (98-107) mmol/L Carbon Dioxide (21.0-32.0) mmol/L BUN (7.0-18.0) mg/dL Creatinine (0.6-1.0) mg/dL Est Cr Clr Drug Dosing mL/min Estimated GFR (MDRD) ml/min Glucose (74-106) mg/dL Calcium (8.5-10.1) mg/dL Magnesium (1.8-2.4) mg/dL Total Bilirubin (0.2-1.0) mg/dL AST (15-37) IU/L ALT (14-63) IU/L Alkaline Phosphatase (46-116) U/L Ammonia (19-54) ug/dL Troponin I < 0.050 < 0.050 (0.000-0.056) ng/mL Total Protein (6.4-8.2) g/dL Albumin (3.4-5.0) g/dL Globulin (2.6-4.0) g/dL Albumin/Globulin Ratio (0.9-1.6) Urine Color YELLOW Urine Appearance CLEAR Urine pH 7.0 (5.0-8.0) Ur Specific [place] 1.010 (1.001-1.035) Urine Protein NEGATIVE (NEGATIVE) mg/dL Urine Glucose (UA) NEGATIVE (NEGATIVE) mg/dL Urine Ketones TRACE H (NEGATIVE) mg/dL Urine Occult Blood NEGATIVE (NEGATIVE) Urine Nitrite NEGATIVE (NEGATIVE) Urine Bilirubin SMALL H (NEGATIVE) Urine Ictotest POSITIVE Urine Urobilinogen 0.2 (<2.0) EU/dL Ur Leukocyte Esterase SMALL H (NEGATIVE) Urine RBC NONE SEEN (0-2/HPF) Urine WBC 0-3 (0-5/HPF) Ur Epithelial Cells FEW (NONE-FEW) Urine Bacteria 1+ H (NEGATIVE) Urine Mucus LIGHT (NONE-MOD) 08/23/19 08/23/19 08/23/19 Range/Units 06:11 06:11 06:11 WBC 9.48 (4.0-11.0) K/uL RBC 3.95 L (4.30-5.90) M/uL Hgb 10.7 L (12.0-16.0) g/dL Hct 31.5 L (36.0-46.0) % MCV 79.7 L (80.0-98.0) fL MCH 27.1 (27.0-32.0) pg MCHC 34.0 (31.0-37.0) g/dL RDW Std Deviation 50.6 (28.0-62.0) fl RDW Coeff of Varsha 18 H (11.0-15.0) % Plt Count 102 L (150-400) K/uL MPV 9.10 (7.40-12.00) fL Neut % (Auto) (48.0-80.0) % Lymph % (Auto) (16.0-40.0) % [place] % (Auto) (0.0-15.0) % Eos % (Auto) (0.0-7.0) % Baso % (Auto) (0.0-1.5) % Neut # (Auto) (1.4-5.7) K/uL Lymph # (Auto) (0.6-2.4) K/uL [place] # (Auto) (0.0-0.8) K/uL Eos # (Auto) (0.0-0.7) K/uL Baso # (Auto) (0.0-0.1) K/uL Add Manual Diff YES Neutrophils % (Manual) 76 (48.0-80.0) % Band Neutrophils % 7 % Lymphocytes % (Manual) 13 L (16.0-40.0) % Monocytes % (Manual) 4 (0.0-15.0) % Nucleated RBC % 0.3 /100WBC Absolute Seg Neuts 7.2 H (1.4-5.7) Band Neutrophils # 0.7 Lymphocytes # (Manual) 1.2 (0.6-2.4) Monocytes # (Manual) 0.4 (0.0-0.8) Nucleated RBCs # 0 K/uL INR ABG pH (7.35-7.45) ABG pCO2 (35-45) mmHG ABG pO2 (75-100) mmHG ABG HCO3 (22-26) mEq/L ABG Total CO2 ABG Base Excess (-2.0-2.0) Sodium 133 L (136-145) mmol/L Potassium 2.9 L (3.5-5.1) mmol/L Chloride 95 L (98-107) mmol/L Carbon Dioxide 29.1 (21.0-32.0) mmol/L BUN 13 (7.0-18.0) mg/dL Creatinine 1.0 (0.6-1.0) mg/dL Est Cr Clr Drug Dosing 51.02 mL/min Estimated GFR (MDRD) 56.4 ml/min Glucose 90 (74-106) mg/dL Calcium 7.9 L (8.5-10.1) mg/dL Magnesium 2.1 (1.8-2.4) mg/dL Total Bilirubin 1.5 H (0.2-1.0) mg/dL AST 73 H (15-37) IU/L ALT 15 (14-63) IU/L Alkaline Phosphatase 242 H (46-116) U/L Ammonia (19-54) ug/dL Troponin I (0.000-0.056) ng/mL Total Protein 6.0 L (6.4-8.2) g/dL Albumin 2.1 L (3.4-5.0) g/dL Globulin 3.9 (2.6-4.0) g/dL Albumin/Globulin Ratio 0.5 L (0.9-1.6) Urine Color Urine Appearance Urine pH (5.0-8.0) Ur Specific [place] (1.001-1.035) Urine Protein (NEGATIVE) mg/dL Urine Glucose (UA) (NEGATIVE) mg/dL Urine Ketones (NEGATIVE) mg/dL Urine Occult Blood (NEGATIVE) Urine Nitrite (NEGATIVE) Urine Bilirubin (NEGATIVE) Urine Ictotest Urine Urobilinogen (<2.0) EU/dL Ur Leukocyte Esterase (NEGATIVE) Urine RBC (0-2/HPF) Urine WBC (0-5/HPF) Ur Epithelial Cells (NONE-FEW) Urine Bacteria (NEGATIVE) Urine Mucus (NONE-MOD) Med Orders - Current: Current Medications Albuterol/Ipratropium (Duoneb 3.0-0.5 Mg/3 Ml) 3 ml NEB Q4HRRT [facility] Last Admin: 08/23/19 10:36 Dose: 3 ml Pantoprazole Sodium 40 mg/ (Sodium Chloride) 10 mls @ 300 mls/hr IV Q12H [facility] Last Admin: 08/23/19 10:11 Dose: 300 mls/hr Ceftriaxone Sodium/Dextrose 1 (gm/ Premix) 50 mls @ 100 mls/hr IV Q24H [facility] Last Admin: 08/23/19 08:43 Dose: 100 mls/hr Lactulose (Chronulac) 10 gm PO BID [facility] Last Admin: 08/23/19 10:26 Dose: 10 gm Lorazepam (Ativan) 2 mg PO TID PRN PRN Reason: Anxiety Last Admin: 08/23/19 10:26 Dose: 2 mg Midodrine (Midodrine) 5 mg PO BID [facility] Last Admin: 08/23/19 10:25 Dose: 5 mg Morphine Sulfate (Morphine) 2 mg IVPUSH Q2H PRN PRN Reason: Pain (severe 7-10) Last Admin: 08/23/19 08:41 Dose: 2 mg Morphine Sulfate (Morphine) 15 mg PO Q6H PRN PRN Reason: Breakthrough Pain Morphine Sulfate (Ms Contin) 30 mg PO Q12HR [facility] Last Admin: 08/23/19 10:25 Dose: 30 mg Ondansetron HCl (Zofran Odt) 4 mg PO Q4H PRN PRN Reason: nausea, able to take PO Potassium Chloride (Klor-Con M20) 40 meq PO BID@0900,1200 [facility] Stop: 08/23/19 12:01 Last Admin: 08/23/19 08:42 Dose: 40 meq Fluticasone/Salmeterol (Advair Diskus 250-50) 1 puff INH BID SHARON Last Admin: 08/23/19 10:36 Dose: 1 inhalation Sodium Chloride (Saline Flush) 10 ml FLUSH ASDIRECTED PRN PRN Reason: Keep Vein Open Last Admin: 08/22/19 17:45 Dose: 10 ml Sodium Chloride (Saline Flush) 2.5 ml FLUSH ASDIRECTED PRN PRN Reason: Keep Vein Open Last Admin: 08/22/19 17:45 Dose: 2.5 ml Trazodone HCl (Trazodone Hcl) 100 mg PO BEDTIME PRN PRN Reason: Abdominal Pain Discontinued Medications Sodium Chloride (Normal Saline) 1,000 mls @ 125 mls/hr IV ASDIRECTED [facility] Last Admin: 08/22/19 17:45 Dose: 125 mls/hr Potassium Chloride 40 meq/ (Premix) 100 mls @ 25 mls/hr IV ONETIME ONE Stop: 08/22/19 22:31 Last Admin: 08/22/19 18:58 Dose: 25 mls/hr Magnesium Sulfate 2 gm/ Premix 50 mls @ 50 mls/hr IV ONETIME ONE Stop: 08/22/19 23:11 Last Admin: 08/22/19 23:10 Dose: 50 mls/hr Lorazepam (Ativan) 1 mg IVPUSH ONETIME ONE Stop: 08/22/19 17:21 Last Admin: 08/22/19 17:45 Dose: 1 mg Morphine Sulfate (Morphine) 2 mg IVPUSH ONETIME ONE Stop: 08/22/19 18:30 Last Admin: 08/22/19 18:37 Dose: 2 mg Morphine Sulfate (Morphine) 2 mg IVPUSH Q2H PRN PRN Reason: Pain (severe 7-10) Stop: 08/23/19 22:05 Morphine Sulfate (Morphine) 2 mg IVPUSH Q2H PRN PRN Reason: Pain (severe 7-10) Oxycodone HCl (Oxycodone) 5 mg PO Q4H PRN PRN Reason: Pain (moderate 4-6) Potassium Chloride (Klor-Con M20) 40 meq PO ONETIME ONE Stop: 08/22/19 21:50 Last Admin: 08/22/19 22:34 Dose: 40 meq - Exam Quality Assessment: Supplemental Oxygen General: Alert, Oriented, Cooperative, Mild Distress Neck: Supple Lungs: Clear to Auscultation, Normal Respiratory Effort Cardiovascular: Regular Rate, Regular Rhythm GI/Abdominal Exam: Normal Bowel Sounds, Soft, Distended, Tender, Hepatomegaly, Other (Ascites) Back Exam: Normal Inspection, Full Range of Motion, CVA Tenderness (L), CVA Tenderness (R) Extremities: Normal Inspection, Normal Range of Motion, Non-Tender, No Pedal Edema Neurological: No New Focal Deficit Psy/Mental Status: Alert, Normal Affect, Anxious - Problem List & Annotations (1) Bacteremia SNOMED Code(s): 3271705 Code(s): R78.81 - BACTEREMIA Status: Acute Current Visit: Yes (2) UTI (urinary tract infection) SNOMED Code(s): 27786630 Code(s): N39.0 - URINARY TRACT INFECTION, SITE NOT SPECIFIED Status: Acute Current Visit: Yes (3) Hypokalemia SNOMED Code(s): 44488229 Code(s): E87.6 - HYPOKALEMIA Status: Acute Current Visit: Yes (4) Metastatic cancer to liver Status: Chronic Current Visit: Yes (5) Chronic anticoagulation SNOMED Code(s): 508784044 Code(s): Z79.01 - CUSTODIAL (CURRENT) USE OF ANTICOAGULANTS Status: Chronic Current Visit: Yes (6) Alcohol abuse SNOMED Code(s): 92196453 Code(s): F10.10 - ALCOHOL ABUSE, UNCOMPLICATED Status: Chronic Current Visit: No (7) Ascites SNOMED Code(s): 545430487 Code(s): R18.8 - OTHER ASCITES Status: Chronic Current Visit: No Qualifiers: Ascites type: other type Qualified Code(s): R18.8 - Other ascites (8) Cancer-related pain SNOMED Code(s): 25614734195631 Code(s): G89.3 - NEOPLASM RELATED PAIN (ACUTE) (CHRONIC) Status: Chronic Current Visit: No (9) Cirrhosis of liver SNOMED Code(s): 44435982 Code(s): K74.60 - UNSPECIFIED CIRRHOSIS OF LIVER Status: Chronic Current Visit: No Qualifiers: Ascites presence: with ascites (10) Esophageal varices SNOMED Code(s): 07147885 Code(s): I85.00 - ESOPHAGEAL VARICES WITHOUT BLEEDING Status: Chronic Current Visit: No Qualifiers: Esophageal varices type: unspecified type Esophageal varices bleeding: without bleeding Qualified Code(s): I85.00 - Esophageal varices without bleeding (11) Portal vein thrombosis SNOMED Code(s): 28400095 Code(s): I81 - PORTAL VEIN THROMBOSIS Status: Chronic Current Visit: No - Problem List Review Problem List Initiated/Reviewed/Updated: Yes - My Orders Last 24 Hours: My Active Orders 08/23/19 08:30 cefTRIAXone [Rocephin in Dextrose,Iso-Osm 1 GM/50 ML] 1 gm Premix Bag 1 bag IV Q24H 08/23/19 09:00 Potassium Chloride [Klor-Con M20] 40 meq PO BID@0900,1200 08/23/19 09:04 Communication Order [RC] DAILY 08/23/19 10:06 Consult to Hospice [CONS] Routine 08/23/19 10:07 LORazepam [Ativan] 2 mg PO TID PRN Morphine 15 mg PO Q6H PRN 08/23/19 10:10 Morphine [MS Contin] 30 mg PO Q12HR 08/23/19 10:11 RT Aerosol Therapy [RC] ASDIRECTED Albuterol/Ipratropium [DuoNeb 3.0-0.5 MG/3 ML] 3 ml NEB Q4HRRT 08/23/19 10:15 Fluticasone/Salmeterol [Advair Diskus 250-50] 1 puff INH BID Lactulose [Chronulac] 10 gm PO BID Midodrine 5 mg PO BID 08/23/19 21:00 traZODone HCl [Trazodone HCl] 100 mg PO BEDTIME PRN - Plan Plan:: 59 yo female with pmh of metastatic liver carcinoma who presents with abdominal pain. 1. Bacteremia: 12/01 bottles returned positive with gram positive cocci in clusters. Will start Vancomycin. Repeat BC. 2. UTI: Mild flank pain and abdominal pain. Could be related to UTI. UC pending. Rocephin added. 3. Metastatic Liver ca: receiving palliative treatments at cancer center. We discussed there is no further curative treatments. She became quite tearful. Discussing best options for care. Will include sonJohn in discussion with Hospice. Has portal vein thrombus. Holding Xarelto now due to complaints of dark stools. Obtain Hemoccult. Hgb 10.7. 4. Abdominal pain: Abdominal pain is likely due to Liver cancer. Continue Home Morphine ER and IR for breakthrough pain. 5. Electrolyte abnormalities: Replace potassium and magnesium monitor in am 6. Anxiety/Alcohol abuse: Continue Ativan home scale. Add CIWAA with Ativan Protocol. 7. Elevated troponin: Now normal. Continue to monitor. 8. COPD: Wheezing noted this morning, continue home inhalers and add nebs. VTE prophylaxis: Restart Xarelto once hemoccult returns Dispo: Discussed at length with Michelle regarding care for at home. Son and other family very concerned regarding home situation. yesterday they found her and her who was very intoxicated in a unkept house. Michelle had not been out of bed in over a week. [place] is concerned for her safety going back home. She has a son living their who is also an addict. Pain medications of hers that was recently filled was missing or all gone. Case management is involved along with Hospice. Hospice will not admit if she were to return home due to the unsafe situation. Also spoke to Michelle about her continue palliative infusion. Educated her on what palliative was, this is not treatment, only treatment for symptoms. There are no futher curative treatments available for her. And at this time we recommended Hospice or comfort measures to insure her end of life is as pain free as possible. This was discussed with son as well, who understands the situation. Will make inpatient today due to bacteremia and UTI. Continue to correct electrolyte imbalance.
[2019-08-23] MEDS: VANCOMYCIN/WATER FOR INJ (PEG) 1.5 GM in Premix Bag 1 BAG IV SCH (13:06)
--- NOTE | 2019-08-23 14:06 | PCM.SN ---
- Free Text/Narrative Note: John, son, John Jones's ,
[2019-08-24] MEDS: Morphine 2 MG/ML Syringe IVPUSH PRN (00:51)
[2019-08-24] MEDS: Albuterol/Ipratropium 3.0-0.5 MG/3 ML Neb Soln NEB SCH ×6 (01:21→21:20)
[2019-08-24 05:39] LABS: CARBON DIOXIDE,CO2 27.5 mmol/L (21.0-32.0); POTASSIUM,K 3.7 mmol/L (3.5-5.1)
[2019-08-24] MEDS: VANCOMYCIN/WATER FOR INJ (PEG) 1.5 GM in Premix Bag 1 BAG IV SCH (06:00)
[2019-08-24] MEDS: LORazepam 1 MG Tab PO PRN ×2 (06:10→21:54)
[2019-08-24] MEDS: cefTRIAXone 1 GM in Premix Bag 1 BAG IV SCH (08:27)
[2019-08-24] MEDS: Lactulose Soln 10 GM/15 ML 15 ML UD Cup PO SCH ×2 (08:28→20:38)
[2019-08-24] MEDS: Morphine 30 MG Tab.ER PO SCH ×2 (08:28→20:40)
[2019-08-24] MEDS: Midodrine 5 MG Tab PO SCH ×2 (08:28→20:40)
[2019-08-24] MEDS: Fluticasone/Salmeterol 250-50 MCG Inhalation Powder 14/Diskus INH SCH ×2 (09:05→21:20)
--- NOTE | 2019-08-24 09:16 | PCM.PN ---
- General Info Date of Service: 08/24/19 Admission Dx/Problem (Free Text): Admission Diagnosis/Problem Admission Diagnosis/Problem Hypokalemia Subjective Update: Doing well this morning, no complaints of pain. This is well controlled with current regimen. She denies chest pain or shortness of breath. No further dark stools. Abdominal pain is improved along with flank pain. Functional Status: Reports: Pain Controlled, Tolerating Diet (asking to advance diet. ) - Review of Systems General: Reports: Malaise (but improving.). Denies: Fever, Weakness, Fatigue Pulmonary: Reports: No Symptoms. Denies: Shortness of Breath Cardiovascular: Reports: No Symptoms. Denies: Chest Pain Gastrointestinal: Reports: No Symptoms. Denies: Abdominal Pain, Melena, Nausea , Vomiting Genitourinary: Reports: No Symptoms. Denies: Dysuria, Frequency, Burning, Flank Pain Musculoskeletal: Reports: No Symptoms Skin: Reports: No Symptoms Neurological: Reports: No Symptoms Psychiatric: Reports: No Symptoms - Patient Data Vitals - Most Recent: Last Vital Signs Temp 97.4 F 08/24/19 08:34 Pulse 85 08/24/19 08:34 Resp 18 08/24/19 08:34 BP 126/71 08/24/19 08:34 Pulse Ox 98 08/24/19 08:34 Weight - Most Recent: 91.58 kg I&O - Last 24 Hours: Intake & Output 08/23/19 08/24/19 08/24/19 22:59 06:59 14:59 Intake Total 600 Output Total 450 Balance 150 Lab Results Last 24 Hours: Laboratory Results - last 24 hr 08/24/19 08/24/19 Range/Units 04:55 04:55 WBC 10.68 (4.0-11.0) K/uL RBC 3.92 L (4.30-5.90) M/uL Hgb 10.5 L (12.0-16.0) g/dL Hct 31.3 L (36.0-46.0) % MCV 79.8 L (80.0-98.0) fL MCH 26.8 L (27.0-32.0) pg MCHC 33.5 (31.0-37.0) g/dL RDW Std Deviation 51.2 (28.0-62.0) fl RDW Coeff of Varsha 18 H (11.0-15.0) % Plt Count 94 L (150-400) K/uL MPV 8.70 (7.40-12.00) fL Neut % (Auto) 75.5 (48.0-80.0) % Lymph % (Auto) 8.7 L (16.0-40.0) % [place] % (Auto) 13.1 (0.0-15.0) % Eos % (Auto) 2.2 (0.0-7.0) % Baso % (Auto) 0.5 (0.0-1.5) % Neut # (Auto) 8.1 H (1.4-5.7) K/uL Lymph # (Auto) 0.9 (0.6-2.4) K/uL [place] # (Auto) 1.4 H (0.0-0.8) K/uL Eos # (Auto) 0.2 (0.0-0.7) K/uL Baso # (Auto) 0.1 (0.0-0.1) K/uL Nucleated RBC % 0.0 /100WBC Nucleated RBCs # 0 K/uL Sodium 128 L (136-145) mmol/L Potassium 3.7 (3.5-5.1) mmol/L Chloride 93 L (98-107) mmol/L Carbon Dioxide 27.5 (21.0-32.0) mmol/L BUN 16 (7.0-18.0) mg/dL Creatinine 1.1 H (0.6-1.0) mg/dL Est Cr Clr Drug Dosing 46.38 mL/min Estimated GFR (MDRD) 50.5 ml/min Glucose 95 (74-106) mg/dL Calcium 8.0 L (8.5-10.1) mg/dL Magnesium 2.0 (1.8-2.4) mg/dL Total Bilirubin 1.5 H (0.2-1.0) mg/dL AST 74 H (15-37) IU/L ALT 14 (14-63) IU/L Alkaline Phosphatase 248 H (46-116) U/L Total Protein 6.4 (6.4-8.2) g/dL Albumin 2.1 L (3.4-5.0) g/dL Globulin 4.3 H (2.6-4.0) g/dL Albumin/Globulin Ratio 0.5 L (0.9-1.6) Alok Results Last 24 Hours: Microbiology 08/24/19 08:25 Stool Occult Blood (ALOK) - Final Stool / Feces 08/22/19 17:43 Aerobic Blood Culture - Preliminary Blood - Venous Anaerobic Blood Culture - Preliminary 08/22/19 20:20 Urine Culture - Final Urine, Clean Catch MIXED TED 10,000-100,000 CFU/ML 08/22/19 17:54 Aerobic Blood Culture - Preliminary Blood - Venous - Lab Draw Anaerobic Blood Culture - Preliminary NO GROWTH AFTER 1 DAY Med Orders - Current: Current Medications Albuterol/Ipratropium (Duoneb 3.0-0.5 Mg/3 Ml) 3 ml NEB Q4HRRT [facility], [facility] Last Admin: 08/24/19 06:18 Dose: 3 ml Pantoprazole Sodium 40 mg/ (Sodium Chloride) 10 mls @ 300 mls/hr IV Q12H [facility] Last Admin: 08/23/19 22:00 Dose: 300 mls/hr Ceftriaxone Sodium/Dextrose 1 (gm/ Premix) 50 mls @ 100 mls/hr IV Q24H [facility] Last Admin: 08/24/19 08:27 Dose: 100 mls/hr Vancomycin HCl 1.5 gm/ Premix 300 mls @ 150 mls/hr IV Q18H [facility] Last Admin: 08/24/19 06:00 Dose: 150 mls/hr Lactulose (Chronulac) 10 gm PO BID [facility] Last Admin: 08/24/19 08:28 Dose: 10 gm Lorazepam (Ativan) 2 mg PO TID PRN PRN Reason: Anxiety Last Admin: 08/24/19 06:10 Dose: 2 mg Midodrine (Midodrine) 5 mg PO BID [facility] Last Admin: 08/24/19 08:28 Dose: 5 mg Morphine Sulfate (Morphine) 2 mg IVPUSH Q2H PRN PRN Reason: Pain (severe 7-10) Last Admin: 08/24/19 00:51 Dose: 2 mg Morphine Sulfate (Morphine) 15 mg PO Q6H PRN PRN Reason: Breakthrough Pain Morphine Sulfate (Ms Contin) 30 mg PO Q12HR [facility] Last Admin: 08/24/19 08:28 Dose: 30 mg Ondansetron HCl (Zofran Odt) 4 mg PO Q4H PRN PRN Reason: nausea, able to take PO Rivaroxaban (Xarelto) 20 mg PO DAILY [facility] Fluticasone/Salmeterol (Advair Diskus 250-50) 1 puff INH BID [facility] Last Admin: 08/24/19 09:05 Dose: 1 inhalation Sodium Chloride (Saline Flush) 10 ml FLUSH ASDIRECTED PRN PRN Reason: Keep Vein Open Last Admin: 08/22/19 17:45 Dose: 10 ml Sodium Chloride (Saline Flush) 2.5 ml FLUSH ASDIRECTED PRN PRN Reason: Keep Vein Open Last Admin: 08/22/19 17:45 Dose: 2.5 ml Trazodone HCl (Trazodone Hcl) 100 mg PO BEDTIME PRN PRN Reason: Abdominal Pain Vancomycin HCl (Pharmacy To Dose - Vancomycin) 1 dose .XX ASDIRECTED [facility], [facility] Discontinued Medications Sodium Chloride (Normal Saline) 1,000 mls @ 125 mls/hr IV ASDIRECTED [facility], [facility] Last Admin: 08/22/19 17:45 Dose: 125 mls/hr Potassium Chloride 40 meq/ (Premix) 100 mls @ 25 mls/hr IV ONETIME ONE Stop: 08/22/19 22:31 Last Admin: 08/22/19 18:58 Dose: 25 mls/hr Magnesium Sulfate 2 gm/ Premix 50 mls @ 50 mls/hr IV ONETIME ONE Stop: 08/22/19 23:11 Last Admin: 08/22/19 23:10 Dose: 50 mls/hr Lorazepam (Ativan) 1 mg IVPUSH ONETIME ONE Stop: 08/22/19 17:21 Last Admin: 08/22/19 17:45 Dose: 1 mg Morphine Sulfate (Morphine) 2 mg IVPUSH ONETIME ONE Stop: 08/22/19 18:30 Last Admin: 08/22/19 18:37 Dose: 2 mg Morphine Sulfate (Morphine) 2 mg IVPUSH Q2H PRN PRN Reason: Pain (severe 7-10) Stop: 08/23/19 22:05 Morphine Sulfate (Morphine) 2 mg IVPUSH Q2H PRN PRN Reason: Pain (severe 7-10) Oxycodone HCl (Oxycodone) 5 mg PO Q4H PRN PRN Reason: Pain (moderate 4-6) Potassium Chloride (Klor-Con M20) 40 meq PO ONETIME ONE Stop: 08/22/19 21:50 Last Admin: 08/22/19 22:34 Dose: 40 meq Potassium Chloride (Klor-Con M20) 40 meq PO BID@0900,1200 SHARON Stop: 08/23/19 12:01 Last Admin: 08/23/19 13:07 Dose: 40 meq - Exam Quality Assessment: Supplemental Oxygen General: Alert, Oriented, Cooperative, No Acute Distress Lungs: Clear to Auscultation, Normal Respiratory Effort Cardiovascular: Regular Rate, Regular Rhythm GI/Abdominal Exam: Normal Bowel Sounds, Soft, Non-Tender, Hepatomegaly, Other ( heme negative stool, no hemorrhoids) Extremities: Normal Inspection, Normal Range of Motion, Non-Tender, No Pedal Edema Wound/Incisions: Healing Well Neurological: No New Focal Deficit Psy/Mental Status: Alert, Normal Affect, Normal Mood - Problem List & Annotations (1) Bacteremia SNOMED Code(s): 0911845 Code(s): R78.81 - BACTEREMIA Status: Acute Current Visit: Yes (2) UTI (urinary tract infection) SNOMED Code(s): 24282454 Code(s): N39.0 - URINARY TRACT INFECTION, SITE NOT SPECIFIED Status: Acute Current Visit: Yes (3) Hypokalemia SNOMED Code(s): 61273539 Code(s): E87.6 - HYPOKALEMIA Status: Acute Current Visit: Yes (4) Metastatic cancer to liver Status: Chronic Current Visit: Yes (5) Chronic anticoagulation SNOMED Code(s): 688485613 Code(s): Z79.01 - AEROSPACE MANAGER (CURRENT) USE OF ANTICOAGULANTS Status: Chronic Current Visit: Yes (6) Alcohol abuse SNOMED Code(s): 26664832 Code(s): F10.10 - ALCOHOL ABUSE, UNCOMPLICATED Status: Chronic Current Visit: No (7) Ascites SNOMED Code(s): 395733393 Code(s): R18.8 - OTHER ASCITES Status: Chronic Current Visit: No Qualifiers: Ascites type: other type Qualified Code(s): R18.8 - Other ascites (8) Cancer-related pain SNOMED Code(s): 51296091205456 Code(s): G89.3 - NEOPLASM RELATED PAIN (ACUTE) (CHRONIC) Status: Chronic Current Visit: No (9) Cirrhosis of liver SNOMED Code(s): 42111513 Code(s): K74.60 - UNSPECIFIED CIRRHOSIS OF LIVER Status: Chronic Current Visit: No Qualifiers: Ascites presence: with ascites (10) Esophageal varices SNOMED Code(s): 34988570 Code(s): I85.00 - ESOPHAGEAL VARICES WITHOUT BLEEDING Status: Chronic Current Visit: No Qualifiers: Esophageal varices type: unspecified type Esophageal varices bleeding: without bleeding Qualified Code(s): I85.00 - Esophageal varices without bleeding (11) Portal vein thrombosis SNOMED Code(s): 80905014 Code(s): I81 - PORTAL VEIN THROMBOSIS Status: Chronic Current Visit: No - Problem List Review Problem List Initiated/Reviewed/Updated: Yes - My Orders Last 24 Hours: My Active Orders 08/23/19 08:30 cefTRIAXone [Rocephin in Dextrose,Iso-Osm 1 GM/50 ML] 1 gm Premix Bag 1 bag IV Q24H 08/23/19 09:04 Communication Order [RC] DAILY 08/23/19 10:06 Consult to Hospice [CONS] Routine 08/23/19 10:07 LORazepam [Ativan] 2 mg PO TID PRN Morphine 15 mg PO Q6H PRN 08/23/19 10:10 Morphine [MS Contin] 30 mg PO Q12HR 08/23/19 10:11 RT Aerosol Therapy [RC] ASDIRECTED Albuterol/Ipratropium [DuoNeb 3.0-0.5 MG/3 ML] 3 ml NEB Q4HRRT 08/23/19 10:15 Fluticasone/Salmeterol [Advair Diskus 250-50] 1 puff INH BID Lactulose [Chronulac] 10 gm PO BID Midodrine 5 mg PO BID 08/23/19 11:40 Patient Status [ADT] Stat 08/23/19 12:30 Pharmacy to Dose - Vancomycin 1 dose .XX ASDIRECTED 08/23/19 12:32 Consult to Physical Therapy [PT Evaluation and Treatment] [CONS] Routine 08/23/19 12:45 Vancomycin/Water For Inj (Peg) [Vancomycin 1.5 GM/300 ML Bag] 1.5 gm Premix Bag 1 bag IV Q18H 08/23/19 21:00 traZODone HCl [Trazodone HCl] 100 mg PO BEDTIME PRN 08/24/19 07:50 Blood Culture x2 Reflex Set [OM.PC] Stat 08/24/19 08:10 CULTURE BLOOD [BC] Stat 08/24/19 08:16 CULTURE BLOOD [BC] Stat 08/24/19 09:00 Rivaroxaban [Xarelto] 20 mg PO DAILY 08/24/19 Breakfast Regular Diet [DIET] 08/25/19 05:11 MAGNESIUM [CHEM] AM - Plan Plan:: 59 yo female with pmh of metastatic liver carcinoma who presents with abdominal pain. 1. Bacteremia: 3/4 bottles returned positive with gram positive cocci in clusters. Continue Vancomycin. Repeat BC obtained. 2. UTI: Pain improved. UC mixed ted. Rocephin continued. 3. Metastatic Liver ca: receiving palliative treatments at cancer center. We discussed there is no further curative treatments. She is unsure of what she would like to do going forward. Daughter Rhoda in room today. They will discuss it as a family. Has portal vein thrombus. Hemoccult negative, restart Xarelto 4. Abdominal pain: Much improved. Continue Home Morphine ER and IR for breakthrough pain. 5. Electrolyte abnormalities: Improved, remained stable. Continue to monitor. 6. Anxiety/Alcohol abuse: Continue Ativan home 7. COPD: Wheezing noted this morning, continue home inhalers and add nebs. VTE prophylaxis: Restart Xarelto Dispo: Continue current care. She is unsure if she wants comfort measures yet. She will discuss with family. was taken to [facility].
[2019-08-24] MEDS: Rivaroxaban 10 MG Tab PO SCH (09:52)
[2019-08-24] MEDS: Pantoprazole 40 MG in Sodium Chloride 0.9% 10 ML IV SCH ×2 (09:53→21:59)
[2019-08-24] MEDS: Sertraline 100 MG Tab PO SCH (11:14)
[2019-08-24] MEDS: busPIRone 5 MG Tab PO SCH (20:39)
[2019-08-24] MEDS ORDERED: Primidone 50 MG Tab PO SCH (21:00)
[2019-08-25] MEDS: Morphine 2 MG/ML Syringe IVPUSH PRN ×3 (00:57→19:50)
[2019-08-25] MEDS: VANCOMYCIN/WATER FOR INJ (PEG) 1.5 GM in Premix Bag 1 BAG IV SCH (01:04)
[2019-08-25] MEDS: Albuterol/Ipratropium 3.0-0.5 MG/3 ML Neb Soln NEB SCH ×6 (02:10→21:06)
[2019-08-25] MEDS: Levothyroxine 100 MCG Tab PO SCH (06:37)
[2019-08-25 06:47] LABS: CARBON DIOXIDE,CO2 26.2 mmol/L (21.0-32.0); POTASSIUM,K 3.9 mmol/L (3.5-5.1)
[2019-08-25] MEDS: Lactulose Soln 10 GM/15 ML 15 ML UD Cup PO SCH ×2 (08:11→21:28)
[2019-08-25] MEDS: busPIRone 5 MG Tab PO SCH ×2 (08:11→21:25)
[2019-08-25] MEDS: Morphine 30 MG Tab.ER PO SCH ×2 (08:12→21:26)
[2019-08-25] MEDS: Sertraline 100 MG Tab PO SCH (08:12)
[2019-08-25] MEDS: Midodrine 5 MG Tab PO SCH ×2 (08:12→22:01)
[2019-08-25] MEDS: Spironolactone 25 MG Tab PO SCH (08:13)
[2019-08-25] MEDS: Rivaroxaban 10 MG Tab PO SCH (08:13)
[2019-08-25] MEDS: Ferrous Sulfate 325 MG Tab PO SCH (08:13)
[2019-08-25] MEDS: Thiamine 100 MG Tab PO SCH (08:14)
[2019-08-25] MEDS: Furosemide 20 MG Tab PO SCH (08:14)
[2019-08-25] MEDS: cefTRIAXone 1 GM in Premix Bag 1 BAG IV SCH (08:20)
--- NOTE | 2019-08-25 08:32 | PCM.PN ---
- General Info Date of Service: 08/25/19 Admission Dx/Problem (Free Text): Metastatic cancer, ascites, intractable pain. Subjective Update: The patient is a 59-year-old lady who had been admitted on August 22, 2019 secondary to severe abdominal pain. She has a history of metastatic liver cancer and also portal vein thrombosis. The patient does have multiple admissions secondary to her metastatic cancer and at times had to have paracentesis. The patient says that her pain has not been very well controlled and she is been very tearful and anxious about dying. The patient has been tolerating diet. Functional Status: Denies: Pain Controlled - Review of Systems General: Reports: Weakness. Denies: Appetite HEENT: Reports: No Symptoms Pulmonary: Reports: Shortness of Breath Cardiovascular: Reports: No Symptoms Gastrointestinal: Reports: Abdominal Pain, Constipation, Nausea Genitourinary: Reports: No Symptoms Musculoskeletal: Reports: No Symptoms Skin: Reports: No Symptoms Neurological: Reports: No Symptoms Psychiatric: Reports: No Symptoms - Patient Data Vitals - Most Recent: Last Vital Signs Temp 36.4 C 08/25/19 07:31 Pulse 91 08/25/19 07:31 Resp 18 08/25/19 07:31 BP 132/76 08/25/19 07:31 Pulse Ox 96 08/25/19 07:31 Weight - Most Recent: 91.58 kg I&O - Last 24 Hours: Intake & Output 08/24/19 08/25/19 08/25/19 22:59 06:59 14:59 Intake Total 680 1300 Output Total 300 500 Balance 380 800 Lab Results Last 24 Hours: Laboratory Results - last 24 hr 08/25/19 08/25/19 Range/Units 06:05 06:05 WBC 10.64 (4.0-11.0) K/uL RBC 3.72 L (4.30-5.90) M/uL Hgb 10.1 L (12.0-16.0) g/dL Hct 29.8 L (36.0-46.0) % MCV 80.1 (80.0-98.0) fL MCH 27.2 (27.0-32.0) pg MCHC 33.9 (31.0-37.0) g/dL RDW Std Deviation 50.8 (28.0-62.0) fl RDW Coeff of Varsha 18 H (11.0-15.0) % Plt Count 87 L (150-400) K/uL MPV 9.50 (7.40-12.00) fL Neut % (Auto) 72.5 (48.0-80.0) % Lymph % (Auto) 9.4 L (16.0-40.0) % [place] % (Auto) 13.6 (0.0-15.0) % Eos % (Auto) 4.0 (0.0-7.0) % Baso % (Auto) 0.5 (0.0-1.5) % Neut # (Auto) 7.7 H (1.4-5.7) K/uL Lymph # (Auto) 1.0 (0.6-2.4) K/uL [place] # (Auto) 1.5 H (0.0-0.8) K/uL Eos # (Auto) 0.4 (0.0-0.7) K/uL Baso # (Auto) 0.1 (0.0-0.1) K/uL Nucleated RBC % 0.0 /100WBC Nucleated RBCs # 0 K/uL Sodium 125 L (136-145) mmol/L Potassium 3.9 (3.5-5.1) mmol/L Chloride 89 L (98-107) mmol/L Carbon Dioxide 26.2 (21.0-32.0) mmol/L BUN 17 (7.0-18.0) mg/dL Creatinine 1.0 (0.6-1.0) mg/dL Est Cr Clr Drug Dosing 51.02 mL/min Estimated GFR (MDRD) 56.4 ml/min Glucose 99 (74-106) mg/dL Calcium 8.0 L (8.5-10.1) mg/dL Magnesium 2.0 (1.8-2.4) mg/dL Total Bilirubin 1.1 H (0.2-1.0) mg/dL AST 75 H (15-37) IU/L ALT 16 (14-63) IU/L Alkaline Phosphatase 244 H (46-116) U/L Total Protein 6.3 L (6.4-8.2) g/dL Albumin 2.1 L (3.4-5.0) g/dL Globulin 4.2 H (2.6-4.0) g/dL Albumin/Globulin Ratio 0.5 L (0.9-1.6) Alok Results Last 24 Hours: Microbiology 08/24/19 08:16 Aerobic Blood Culture - Preliminary Blood - Venous - Lab Draw NO GROWTH AFTER 1 DAY Anaerobic Blood Culture - Preliminary NO GROWTH AFTER 1 DAY 08/24/19 08:10 Aerobic Blood Culture - Preliminary Blood - Venous NO GROWTH AFTER 1 DAY Anaerobic Blood Culture - Preliminary NO GROWTH AFTER 1 DAY 08/22/19 17:54 Aerobic Blood Culture - Final Blood - Venous - Lab Draw Anaerobic Blood Culture - Preliminary NO GROWTH AFTER 2 DAYS 08/22/19 17:43 Aerobic Blood Culture - Preliminary Blood - Venous Anaerobic Blood Culture - Preliminary 08/24/19 08:25 Stool Occult Blood (ALOK) - Final Stool / Feces 08/22/19 20:20 Urine Culture - Final Urine, Clean Catch MIXED TED 10,000-100,000 CFU/ML Med Orders - Current: Current Medications Albuterol/Ipratropium (Duoneb 3.0-0.5 Mg/3 Ml) 3 ml NEB Q4HRRT COUNT INCLUDES THE [facility] Last Admin: 08/25/19 06:09 Dose: 3 ml Buspirone HCl (Buspar) 15 mg PO BID COUNT INCLUDES THE [facility] Last Admin: 08/25/19 08:11 Dose: 15 mg Ferrous Sulfate (Ferrous Sulfate) 325 mg PO DAILY COUNT INCLUDES THE [facility] Last Admin: 08/25/19 08:13 Dose: 325 mg Furosemide (Lasix) 20 mg PO DAILY COUNT INCLUDES THE [facility] Last Admin: 08/25/19 08:14 Dose: 20 mg Pantoprazole Sodium 40 mg/ (Sodium Chloride) 10 mls @ 300 mls/hr IV Q12H COUNT INCLUDES THE [facility] Last Admin: 08/24/19 21:59 Dose: 300 mls/hr Ceftriaxone Sodium/Dextrose 1 (gm/ Premix) 50 mls @ 100 mls/hr IV Q24H COUNT INCLUDES THE [facility] Last Admin: 08/25/19 08:20 Dose: 100 mls/hr Vancomycin HCl 1.5 gm/ Premix 300 mls @ 150 mls/hr IV Q18H COUNT INCLUDES THE [facility] Last Admin: 08/25/19 01:04 Dose: 150 mls/hr Lactulose (Chronulac) 10 gm PO BID COUNT INCLUDES THE [facility] Last Admin: 08/25/19 08:11 Dose: 10 gm Levothyroxine Sodium (Synthroid) 200 mcg PO ACBREAKFAST COUNT INCLUDES THE [facility] Last Admin: 08/25/19 06:37 Dose: 200 mcg Lorazepam (Ativan) 2 mg PO TID PRN PRN Reason: Anxiety Last Admin: 08/24/19 21:54 Dose: 2 mg Midodrine (Midodrine) 5 mg PO BID COUNT INCLUDES THE [facility] Last Admin: 08/25/19 08:12 Dose: 5 mg Morphine Sulfate (Morphine) 2 mg IVPUSH Q2H PRN PRN Reason: Pain (severe 7-10) Last Admin: 08/25/19 00:57 Dose: 2 mg Morphine Sulfate (Morphine) 15 mg PO Q6H PRN PRN Reason: Breakthrough Pain Last Admin: 08/25/19 04:57 Dose: 15 mg Morphine Sulfate (Ms Contin) 30 mg PO Q12HR COUNT INCLUDES THE [facility] Last Admin: 08/25/19 08:12 Dose: 30 mg Ondansetron HCl (Zofran Odt) 4 mg PO Q4H PRN PRN Reason: nausea, able to take PO Folic Acid 0.4 Mg 1 each PO DAILY COUNT INCLUDES THE [facility] Primidone (Mysoline) 50 mg PO BEDTIME COUNT INCLUDES THE [facility] Rivaroxaban (Xarelto) 20 mg PO DAILY COUNT INCLUDES THE [facility] Last Admin: 08/25/19 08:13 Dose: 20 mg Fluticasone/Salmeterol (Advair Diskus 250-50) 1 puff INH BID COUNT INCLUDES THE [facility] Last Admin: 08/24/19 21:20 Dose: 1 inhalation Sertraline HCl (Zoloft) 100 mg PO DAILY COUNT INCLUDES THE [facility] Last Admin: 08/25/19 08:12 Dose: 100 mg Sodium Chloride (Saline Flush) 10 ml FLUSH ASDIRECTED PRN PRN Reason: Keep Vein Open Last Admin: 08/22/19 17:45 Dose: 10 ml Sodium Chloride (Saline Flush) 2.5 ml FLUSH ASDIRECTED PRN PRN Reason: Keep Vein Open Last Admin: 08/22/19 17:45 Dose: 2.5 ml Spironolactone (Aldactone) 50 mg PO DAILY COUNT INCLUDES THE [facility] Last Admin: 08/25/19 08:13 Dose: 50 mg Thiamine HCl (Vitamin B-1) 250 mg PO DAILY COUNT INCLUDES THE [facility] Last Admin: 08/25/19 08:14 Dose: 250 mg Trazodone HCl (Trazodone Hcl) 100 mg PO BEDTIME PRN PRN Reason: Abdominal Pain Vancomycin HCl (Pharmacy To Dose - Vancomycin) 1 dose .XX ASDIRECTED COUNT INCLUDES THE [facility] Discontinued Medications Sodium Chloride (Normal Saline) 1,000 mls @ 125 mls/hr IV ASDIRECTED COUNT INCLUDES THE [facility] Last Admin: 08/22/19 17:45 Dose: 125 mls/hr Potassium Chloride 40 meq/ (Premix) 100 mls @ 25 mls/hr IV ONETIME ONE Stop: 08/22/19 22:31 Last Admin: 08/22/19 18:58 Dose: 25 mls/hr Magnesium Sulfate 2 gm/ Premix 50 mls @ 50 mls/hr IV ONETIME ONE Stop: 08/22/19 23:11 Last Admin: 08/22/19 23:10 Dose: 50 mls/hr Lorazepam (Ativan) 1 mg IVPUSH ONETIME ONE Stop: 08/22/19 17:21 Last Admin: 08/22/19 17:45 Dose: 1 mg Morphine Sulfate (Morphine) 2 mg IVPUSH ONETIME ONE Stop: 08/22/19 18:30 Last Admin: 08/22/19 18:37 Dose: 2 mg Morphine Sulfate (Morphine) 2 mg IVPUSH Q2H PRN PRN Reason: Pain (severe 7-10) Stop: 08/23/19 22:05 Morphine Sulfate (Morphine) 2 mg IVPUSH Q2H PRN PRN Reason: Pain (severe 7-10) Oxycodone HCl (Oxycodone) 5 mg PO Q4H PRN PRN Reason: Pain (moderate 4-6) Potassium Chloride (Klor-Con M20) 40 meq PO ONETIME ONE Stop: 08/22/19 21:50 Last Admin: 08/22/19 22:34 Dose: 40 meq Potassium Chloride (Klor-Con M20) 40 meq PO BID@0900,1200 COUNT INCLUDES THE [facility] Stop: 08/23/19 12:01 Last Admin: 08/23/19 13:07 Dose: 40 meq - Exam Quality Assessment: No: Supplemental Oxygen General: Alert, Oriented, Cooperative, Mild Distress HEENT: Pupils Equal, Pupils Reactive, EOMI, Mucous Membr. Moist/[place] Neck: Supple, Trachea Midline Lungs: Clear to Auscultation, Normal Respiratory Effort Cardiovascular: Regular Rate, Regular Rhythm GI/Abdominal Exam: Normal Bowel Sounds, Soft, No Distention, Tender (Right upper quadrant) Back Exam: Normal Inspection, Full Range of Motion Extremities: Normal Inspection, Normal Range of Motion, No Pedal Edema Skin: Warm, Dry, Intact Neurological: No New Focal Deficit Psy/Mental Status: Alert, Normal Affect, Normal Mood - Problem List & Annotations (1) Metastatic cancer to liver Status: Chronic Priority: High Current Visit: Yes (2) COLD, Chronic obstructive lung disease SNOMED Code(s): 36054217 Code(s): J44.9 - CHRONIC OBSTRUCTIVE PULMONARY DISEASE, UNSPECIFIED Status : Chronic Priority: High Current Visit: Yes (3) UTI (urinary tract infection) SNOMED Code(s): 52090329 Code(s): N39.0 - URINARY TRACT INFECTION, SITE NOT SPECIFIED Status: Resolved Priority: Medium Current Visit: Yes Qualifiers: Urinary tract infection type: acute cystitis Hematuria presence: without hematuria Qualified Code(s): N30.00 - Acute cystitis without hematuria (4) Chronic anticoagulation SNOMED Code(s): 291034733 Code(s): Z79.01 - GROUP HOME (CURRENT) USE OF ANTICOAGULANTS Status: Chronic Priority: High Current Visit: Yes (5) Abdominal pain SNOMED Code(s): 73135641 Code(s): R10.9 - UNSPECIFIED ABDOMINAL PAIN Status: Chronic Priority: High Current Visit: Yes Qualifiers: Abdominal location: right upper quadrant Qualified Code(s): R10.11 - Right upper quadrant pain (6) Portal vein thrombosis SNOMED Code(s): 14112160 Code(s): I81 - PORTAL VEIN THROMBOSIS Status: Acute Priority: High Current Visit: Yes - Problem List Review Problem List Initiated/Reviewed/Updated: Yes - Plan Plan:: The patient is a 59-year-old lady who had been admitted secondary to intractable pain from her metastatic liver cancer. Patient has been receiving palliative care and is currently waiting for hospice support at home. I've ordered spiritual care counseling as the patient has been concerned about her dying. The patient also says that her pain hasn't been controlled very well and I've increase the patient's short acting morphine to 20 mg by mouth every 4 hours. The patient also had been previously discharged on fentanyl patch and reportedly she didn't like that. Due to the patient's portal vein thrombosis the patient has been started on Xarleto. T will also continue palliative care measures. The patient's antibiotics have been discontinued as she has had cultures which show predominantly normal ted. he patient will be kept on her diet as tolerated. She also has severe anxiety and this will be treated with the use of. This will be continued. The patient should be appropriate for discharge in 1-2 days depending upon patient's level of pain control. She's been encouraged to ambulate.
[2019-08-25] MEDS: LORazepam 1 MG Tab PO PRN ×2 (08:36→19:49)
[2019-08-25] MEDS: Fluticasone/Salmeterol 250-50 MCG Inhalation Powder 14/Diskus INH SCH ×2 (08:48→21:07)
[2019-08-25] MEDS: Pantoprazole 40 MG in Sodium Chloride 0.9% 10 ML IV SCH ×2 (10:11→21:29)
[2019-08-25] MEDS ORDERED: traZODone 50 MG Tab PO PRN (10:32)
--- NOTE | 2019-08-25 11:17 | CT ---
INDICATION: Fall. TECHNIQUE: Noncontrast CT images were obtained through the brain. COMPARISON: None. FINDINGS: Prominence of the ventricles and sulci compatible with mild diffuse cerebral volume loss. No mass effect or midline shift. The benavidez-white differentiation is maintained. No acute intracranial hemorrhage or pathologic extra-axial fluid collection. The globes are symmetric in size. The calvarium is intact. The visualized paranasal sinuses and mastoid air cells are clear. IMPRESSION: 1. No acute intracranial hemorrhage or mass effect. 2. Mild diffuse cerebral volume loss. Please note that all CT scans at this facility use dose modulation, iterative reconstruction, and/or weight-based dosing when appropriate to reduce radiation dose to as low as reasonably achievable. Dictated by Ferny Boateng MD @ Aug 25 2019 11:11AM Signed by Dr. Ferny Boateng @ Aug 25 2019 11:15AM
[2019-08-26] MEDS: Albuterol/Ipratropium 3.0-0.5 MG/3 ML Neb Soln NEB SCH ×6 (02:32→21:04)
[2019-08-26] MEDS: Morphine 2 MG/ML Syringe IVPUSH PRN ×2 (03:39→07:08)
[2019-08-26] MEDS: LORazepam 1 MG Tab PO PRN ×3 (07:06→18:50)
[2019-08-26] MEDS: Levothyroxine 100 MCG Tab PO SCH (07:07)
[2019-08-26 07:19] LABS: CARBON DIOXIDE,CO2 28.2 mmol/L (21.0-32.0)
[2019-08-26] MEDS: Morphine 30 MG Tab.ER PO SCH ×2 (09:19→20:51)
[2019-08-26] MEDS: Ferrous Sulfate 325 MG Tab PO SCH (09:20)
[2019-08-26] MEDS: Sertraline 100 MG Tab PO SCH (09:20)
[2019-08-26] MEDS: Spironolactone 25 MG Tab PO SCH (09:20)
[2019-08-26] MEDS: Midodrine 5 MG Tab PO SCH ×2 (09:20→20:56)
[2019-08-26] MEDS: Furosemide 20 MG Tab PO SCH (09:20)
[2019-08-26] MEDS: busPIRone 5 MG Tab PO SCH ×2 (09:21→20:57)
[2019-08-26] MEDS: Thiamine 100 MG Tab PO SCH (09:21)
[2019-08-26] MEDS: Lactulose Soln 10 GM/15 ML 15 ML UD Cup PO SCH ×2 (09:22→20:58)
[2019-08-26] MEDS: Rivaroxaban 10 MG Tab PO SCH (09:27)
[2019-08-26] MEDS: Fluticasone/Salmeterol 250-50 MCG Inhalation Powder 14/Diskus INH SCH ×2 (09:58→20:50)
[2019-08-26] MEDS ORDERED: oxyCODONE 5 MG Tab PO PRN (10:50)
--- NOTE | 2019-08-26 12:22 | PCM.PN ---
- General Info Date of Service: 08/26/19 Admission Dx/Problem (Free Text): Metastatic cancer, ascites, intractable pain. Subjective Update: The patient is a 59-year-old lady who was admitted secondary to hypokalemia and abdominal pain on August 22, 2019. She does have a history of hepatitis C, essentially terminal metastatic liver carcinoma and had developed portal vein thrombosis. The patient had been using fentanyl at home and she was unable to tolerate this. The patient's pain has been relatively well controlled for now. She has been tolerating diet. She has denied any nausea or vomiting. Functional Status: Reports: Pain Controlled - Review of Systems General: Reports: No Symptoms HEENT: Reports: No Symptoms Pulmonary: Reports: No Symptoms Cardiovascular: Reports: No Symptoms Gastrointestinal: Reports: Abdominal Pain, Nausea Genitourinary: Reports: No Symptoms Musculoskeletal: Reports: No Symptoms Skin: Reports: No Symptoms Neurological: Reports: No Symptoms Psychiatric: Reports: No Symptoms - Patient Data Vitals - Most Recent: Last Vital Signs Temp 36.2 C 08/26/19 03:45 Pulse 93 08/26/19 03:45 Resp 18 08/26/19 03:45 BP 121/75 08/26/19 03:45 Pulse Ox 97 08/26/19 03:45 Weight - Most Recent: 91.58 kg I&O - Last 24 Hours: Intake & Output 08/25/19 08/26/19 08/26/19 22:59 06:59 14:59 Intake Total 1100 990 Output Total 350 850 Balance 750 140 Lab Results Last 24 Hours: Laboratory Results - last 24 hr 08/26/19 08/26/19 Range/Units 06:30 06:30 WBC 11.41 H (4.0-11.0) K/uL RBC 3.90 L (4.30-5.90) M/uL Hgb 10.5 L (12.0-16.0) g/dL Hct 31.2 L (36.0-46.0) % MCV 80.0 (80.0-98.0) fL MCH 26.9 L (27.0-32.0) pg MCHC 33.7 (31.0-37.0) g/dL RDW Std Deviation 51.0 (28.0-62.0) fl RDW Coeff of Varsha 18 H (11.0-15.0) % Plt Count 101 L (150-400) K/uL MPV 9.20 (7.40-12.00) fL Neut % (Auto) 74.6 (48.0-80.0) % Lymph % (Auto) 8.3 L (16.0-40.0) % [place] % (Auto) 13.7 (0.0-15.0) % Eos % (Auto) 3.2 (0.0-7.0) % Baso % (Auto) 0.2 (0.0-1.5) % Neut # (Auto) 8.5 H (1.4-5.7) K/uL Lymph # (Auto) 1.0 (0.6-2.4) K/uL [place] # (Auto) 1.6 H (0.0-0.8) K/uL Eos # (Auto) 0.4 (0.0-0.7) K/uL Baso # (Auto) 0.0 (0.0-0.1) K/uL Nucleated RBC % 0.0 /100WBC Nucleated RBCs # 0 K/uL Sodium 125 L (136-145) mmol/L Potassium 4.0 (3.5-5.1) mmol/L Chloride 89 L (98-107) mmol/L Carbon Dioxide 28.2 (21.0-32.0) mmol/L BUN 19 H (7.0-18.0) mg/dL Creatinine 1.1 H (0.6-1.0) mg/dL Est Cr Clr Drug Dosing 46.38 mL/min Estimated GFR (MDRD) 50.5 ml/min Glucose 62 L (74-106) mg/dL Calcium 8.4 L (8.5-10.1) mg/dL Total Bilirubin 1.1 H (0.2-1.0) mg/dL AST 93 H (15-37) IU/L ALT 20 (14-63) IU/L Alkaline Phosphatase 269 H (46-116) U/L Total Protein 6.7 (6.4-8.2) g/dL Albumin 2.2 L (3.4-5.0) g/dL Globulin 4.5 H (2.6-4.0) g/dL Albumin/Globulin Ratio 0.5 L (0.9-1.6) Alok Results Last 24 Hours: Microbiology 08/24/19 08:16 Aerobic Blood Culture - Preliminary Blood - Venous - Lab Draw NO GROWTH AFTER 2 DAYS Anaerobic Blood Culture - Preliminary NO GROWTH AFTER 2 DAYS 08/24/19 08:10 Aerobic Blood Culture - Preliminary Blood - Venous NO GROWTH AFTER 2 DAYS Anaerobic Blood Culture - Preliminary NO GROWTH AFTER 2 DAYS 08/22/19 17:43 Aerobic Blood Culture - Final Blood - Venous Staph Hominis Ss Hominis Anaerobic Blood Culture - Final Staph Hominis Ss Hominis 08/22/19 17:54 Aerobic Blood Culture - Final Blood - Venous - Lab Draw Anaerobic Blood Culture - Preliminary NO GROWTH AFTER 3 DAYS Med Orders - Current: Current Medications Albuterol/Ipratropium (Duoneb 3.0-0.5 Mg/3 Ml) 3 ml NEB Q4HRRT [facility] Last Admin: 08/26/19 09:58 Dose: 3 ml Buspirone HCl (Buspar) 15 mg PO BID [facility] Last Admin: 08/26/19 09:21 Dose: 15 mg Ferrous Sulfate (Ferrous Sulfate) 325 mg PO DAILY [facility] Last Admin: 08/26/19 09:20 Dose: 325 mg Furosemide (Lasix) 20 mg PO DAILY [facility] Last Admin: 08/26/19 09:20 Dose: 20 mg Pantoprazole Sodium 40 mg/ (Sodium Chloride) 10 mls @ 300 mls/hr IV Q12H [facility] Last Admin: 08/25/19 21:29 Dose: 300 mls/hr Lactulose (Chronulac) 10 gm PO BID [facility] Last Admin: 08/26/19 09:22 Dose: 10 gm Levothyroxine Sodium (Synthroid) 200 mcg PO ACBREAKFAST [facility] Last Admin: 08/26/19 07:07 Dose: 200 mcg Lorazepam (Ativan) 1 mg PO Q6H PRN PRN Reason: Anxiety Midodrine (Midodrine) 5 mg PO BID [facility] Last Admin: 08/26/19 09:20 Dose: 5 mg Morphine Sulfate (Ms Contin) 30 mg PO Q12HR [facility] Last Admin: 08/26/19 09:19 Dose: 30 mg Morphine Sulfate (Morphine 10 Mg/0.5 Ml Oral Syringe) 20 mg PO Q4H PRN PRN Reason: Pain (severe 7-10) Ondansetron HCl (Zofran Odt) 4 mg PO Q4H PRN PRN Reason: nausea, able to take PO Oxycodone HCl (Oxycodone) 20 mg PO Q2H PRN PRN Reason: Pain Oxycodone HCl (Oxycontin) 20 mg PO Q12HR [facility] Folic Acid 0.4 Mg 1 each PO DAILY [facility] Last Admin: 08/26/19 09:22 Dose: Not Given Primidone (Mysoline) 50 mg PO BEDTIME [facility] Rivaroxaban (Xarelto) 20 mg PO DAILY [facility] Last Admin: 08/26/19 09:27 Dose: 20 mg Fluticasone/Salmeterol (Advair Diskus 250-50) 1 puff INH BID [facility] Last Admin: 08/26/19 09:58 Dose: 1 inhalation Sertraline HCl (Zoloft) 100 mg PO DAILY [facility] Last Admin: 08/26/19 09:20 Dose: 100 mg Sodium Chloride (Saline Flush) 10 ml FLUSH ASDIRECTED PRN PRN Reason: Keep Vein Open Last Admin: 08/22/19 17:45 Dose: 10 ml Sodium Chloride (Saline Flush) 2.5 ml FLUSH ASDIRECTED PRN PRN Reason: Keep Vein Open Last Admin: 08/22/19 17:45 Dose: 2.5 ml Spironolactone (Aldactone) 50 mg PO DAILY [facility] Last Admin: 08/26/19 09:20 Dose: 50 mg Thiamine HCl (Vitamin B-1) 250 mg PO DAILY [facility] Last Admin: 08/26/19 09:21 Dose: 250 mg Trazodone HCl (Trazodone) 100 mg PO BEDTIME PRN PRN Reason: Abdominal Pain Discontinued Medications Sodium Chloride (Normal Saline) 1,000 mls @ 125 mls/hr IV ASDIRECTED [facility] Last Admin: 08/22/19 17:45 Dose: 125 mls/hr Potassium Chloride 40 meq/ (Premix) 100 mls @ 25 mls/hr IV ONETIME ONE Stop: 08/22/19 22:31 Last Admin: 08/22/19 18:58 Dose: 25 mls/hr Magnesium Sulfate 2 gm/ Premix 50 mls @ 50 mls/hr IV ONETIME ONE Stop: 08/22/19 23:11 Last Admin: 08/22/19 23:10 Dose: 50 mls/hr Ceftriaxone Sodium/Dextrose 1 (gm/ Premix) 50 mls @ 100 mls/hr IV Q24H [facility] Last Admin: 08/25/19 08:20 Dose: 100 mls/hr Vancomycin HCl 1.5 gm/ Premix 300 mls @ 150 mls/hr IV Q18H [facility] Last Admin: 08/25/19 01:04 Dose: 150 mls/hr Lorazepam (Ativan) 1 mg IVPUSH ONETIME ONE Stop: 08/22/19 17:21 Last Admin: 08/22/19 17:45 Dose: 1 mg Lorazepam (Ativan) 2 mg PO TID PRN PRN Reason: Anxiety Last Admin: 08/26/19 07:06 Dose: 2 mg Morphine Sulfate (Morphine) 2 mg IVPUSH ONETIME ONE Stop: 08/22/19 18:30 Last Admin: 08/22/19 18:37 Dose: 2 mg Morphine Sulfate (Morphine) 2 mg IVPUSH Q2H PRN PRN Reason: Pain (severe 7-10) Stop: 08/23/19 22:05 Morphine Sulfate (Morphine) 2 mg IVPUSH Q2H PRN PRN Reason: Pain (severe 7-10) Morphine Sulfate (Morphine) 2 mg IVPUSH Q2H PRN PRN Reason: Pain (severe 7-10) Last Admin: 08/26/19 07:08 Dose: 2 mg Morphine Sulfate (Morphine) 15 mg PO Q6H PRN PRN Reason: Breakthrough Pain Last Admin: 08/25/19 04:57 Dose: 15 mg Oxycodone HCl (Oxycodone) 5 mg PO Q4H PRN PRN Reason: Pain (moderate 4-6) Potassium Chloride (Klor-Con M20) 40 meq PO ONETIME ONE Stop: 08/22/19 21:50 Last Admin: 08/22/19 22:34 Dose: 40 meq Potassium Chloride (Klor-Con M20) 40 meq PO BID@0900,1200 [facility] Stop: 08/23/19 12:01 Last Admin: 08/23/19 13:07 Dose: 40 meq Trazodone HCl (Trazodone Hcl) 100 mg PO BEDTIME PRN PRN Reason: Abdominal Pain Vancomycin HCl (Pharmacy To Dose - Vancomycin) 1 dose .XX ASDIRECTED [facility] - Exam Quality Assessment: No: Supplemental Oxygen General: Alert, Oriented, Cooperative, Mild Distress HEENT: Pupils Equal, Pupils Reactive, EOMI. No: Mucous Membr. Moist/Mora (Dry) Neck: Supple, Trachea Midline Lungs: Clear to Auscultation, Normal Respiratory Effort Cardiovascular: Regular Rate, Regular Rhythm GI/Abdominal Exam: Normal Bowel Sounds, No Distention, Tender Extremities: Normal Inspection, Pedal Edema Skin: Warm, Dry, Intact Neurological: No New Focal Deficit Psy/Mental Status: Alert, Normal Affect, Normal Mood - Problem List & Annotations (1) Metastatic cancer to liver Status: Chronic Priority: High Current Visit: Yes (2) UTI (urinary tract infection) SNOMED Code(s): 49233134 Code(s): N39.0 - URINARY TRACT INFECTION, SITE NOT SPECIFIED Status: Resolved Priority: Medium Current Visit: Yes Qualifiers: Urinary tract infection type: acute cystitis Hematuria presence: without hematuria Qualified Code(s): N30.00 - Acute cystitis without hematuria (3) Chronic anticoagulation SNOMED Code(s): 864341046 Code(s): Z79.01 - [facility] (CURRENT) USE OF ANTICOAGULANTS Status: Chronic Priority: High Current Visit: Yes (4) Abdominal pain SNOMED Code(s): 74378615 Code(s): R10.9 - UNSPECIFIED ABDOMINAL PAIN Status: Chronic Priority: High Current Visit: Yes Qualifiers: Abdominal location: right upper quadrant Qualified Code(s): R10.11 - Right upper quadrant pain (5) Portal vein thrombosis SNOMED Code(s): 12339176 Code(s): I81 - PORTAL VEIN THROMBOSIS Status: Acute Priority: High Current Visit: Yes - Problem List Review Problem List Initiated/Reviewed/Updated: Yes - My Orders Last 24 Hours: My Active Orders 08/25/19 17:51 Vital Signs [RC] DAILY 08/26/19 10:49 LORazepam [Ativan] 1 mg PO Q6H PRN 08/26/19 10:50 oxyCODONE 20 mg PO Q2H PRN 08/26/19 21:00 oxyCODONE ER [OxyCONTIN] 20 mg PO Q12HR - Plan Plan:: The patient is a 59-year-old lady who was admitted secondary to intractable pain from her liver cancer. I had a long discussion with the patient and the family regarding end-of-life care and palliative measures. They're concerned about having home hospice. The patient's oxycodone had been increased as well as her OxyContin. This seems to be helping her. The patient had not been able to tolerate a internal patch. The patient will also be treated with Ativan for anxiety and this should also help to improve her pain. She is currently anticoagulated with Xarelto and this will be continued. She has been encouraged to ambulate. The patient should be appropriate for discharge in 1-2 days depending on her symptom control. Also had a conversation with the patient's children with regards to the patient's poor prognosis. The patient is currently in a DO NOT INTUBATE/DO NOT RESUSCITATE category.
[2019-08-26] MEDS: Morphine 10 MG/0.5 ML Oral Syringe PO PRN ×2 (12:51→22:52)
[2019-08-26] MEDS: Pantoprazole 40 MG in Sodium Chloride 0.9% 10 ML IV SCH (13:21)
[2019-08-26] MEDS ORDERED: oxyCODONE ER 20 MG TAB.ER PO SCH (21:00)
[2019-08-27] MEDS: Albuterol/Ipratropium 3.0-0.5 MG/3 ML Neb Soln NEB SCH ×5 (02:06→17:44)
[2019-08-27] MEDS: LORazepam 1 MG Tab PO PRN (02:12)
[2019-08-27] MEDS: Morphine 10 MG/0.5 ML Oral Syringe PO PRN ×3 (02:40→17:42)
[2019-08-27 06:43] LABS: POTASSIUM,K 4.4 mmol/L (3.5-5.1)
[2019-08-27] MEDS: Levothyroxine 100 MCG Tab PO SCH (06:51)
--- NOTE | 2019-08-27 09:04 | PCM.PN ---
- General Info Date of Service: 08/27/19 Admission Dx/Problem (Free Text): Metastatic liver cancer, ascites, intractable pain. Subjective Update: Sitting in chair. reports anxiety and R lower abdominal pain. Functional Status: Reports: Tolerating Diet, Urinating. Denies: Pain Controlled , Ambulating - Review of Systems General: Reports: Weakness (generalized.), Malaise HEENT: Reports: No Symptoms. Denies: Headaches, Sore Throat, Visual Changes Pulmonary: Reports: No Symptoms. Denies: Shortness of Breath Cardiovascular: Reports: No Symptoms. Denies: Chest Pain Gastrointestinal: Reports: Abdominal Pain. Denies: Diarrhea, Nausea Genitourinary: Reports: No Symptoms. Denies: Dysuria, Frequency, Burning Musculoskeletal: Reports: No Symptoms Skin: Reports: No Symptoms Neurological: Reports: No Symptoms Psychiatric: Reports: No Symptoms - Patient Data Vitals - Most Recent: Last Vital Signs Temp 97.8 F 08/27/19 07:38 Pulse 85 08/27/19 07:38 Resp 18 08/27/19 07:38 BP 113/67 08/27/19 07:38 Pulse Ox 92 L 08/27/19 07:38 Weight - Most Recent: 138.482 kg I&O - Last 24 Hours: Intake & Output 08/26/19 08/27/19 08/27/19 22:59 06:59 14:59 Intake Total 920 450 Output Total 600 800 Balance 320 -350 Lab Results Last 24 Hours: Laboratory Results - last 24 hr 08/27/19 08/27/19 Range/Units 06:15 06:15 WBC 10.82 (4.0-11.0) K/uL RBC 3.66 L (4.30-5.90) M/uL Hgb 9.9 L (12.0-16.0) g/dL Hct 29.2 L (36.0-46.0) % MCV 79.8 L (80.0-98.0) fL MCH 27.0 (27.0-32.0) pg MCHC 33.9 (31.0-37.0) g/dL RDW Std Deviation 50.9 (28.0-62.0) fl RDW Coeff of Varsha 18 H (11.0-15.0) % Plt Count 90 L (150-400) K/uL MPV 9.30 (7.40-12.00) fL Neut % (Auto) 73.2 (48.0-80.0) % Lymph % (Auto) 8.5 L (16.0-40.0) % [place] % (Auto) 14.9 (0.0-15.0) % Eos % (Auto) 3.0 (0.0-7.0) % Baso % (Auto) 0.4 (0.0-1.5) % Neut # (Auto) 7.9 H (1.4-5.7) K/uL Lymph # (Auto) 0.9 (0.6-2.4) K/uL [place] # (Auto) 1.6 H (0.0-0.8) K/uL Eos # (Auto) 0.3 (0.0-0.7) K/uL Baso # (Auto) 0.0 (0.0-0.1) K/uL Nucleated RBC % 0.0 /100WBC Nucleated RBCs # 0 K/uL Sodium 125 L (136-145) mmol/L Potassium 4.4 (3.5-5.1) mmol/L Chloride 90 L (98-107) mmol/L Carbon Dioxide 26.0 (21.0-32.0) mmol/L BUN 20 H (7.0-18.0) mg/dL Creatinine 1.0 (0.6-1.0) mg/dL Est Cr Clr Drug Dosing 51.02 mL/min Estimated GFR (MDRD) 56.4 ml/min Glucose 88 (74-106) mg/dL Calcium 8.4 L (8.5-10.1) mg/dL Total Bilirubin 1.4 H (0.2-1.0) mg/dL AST 99 H (15-37) IU/L ALT 20 (14-63) IU/L Alkaline Phosphatase 267 H (46-116) U/L Total Protein 6.7 (6.4-8.2) g/dL Albumin 2.2 L (3.4-5.0) g/dL Globulin 4.5 H (2.6-4.0) g/dL Albumin/Globulin Ratio 0.5 L (0.9-1.6) Alok Results Last 24 Hours: Microbiology 08/24/19 08:16 Aerobic Blood Culture - Preliminary Blood - Venous - Lab Draw NO GROWTH AFTER 3 DAYS Anaerobic Blood Culture - Preliminary NO GROWTH AFTER 3 DAYS 08/24/19 08:10 Aerobic Blood Culture - Preliminary Blood - Venous NO GROWTH AFTER 3 DAYS Anaerobic Blood Culture - Preliminary NO GROWTH AFTER 3 DAYS 08/22/19 17:54 Aerobic Blood Culture - Final Blood - Venous - Lab Draw Anaerobic Blood Culture - Preliminary NO GROWTH AFTER 4 DAYS 08/22/19 17:43 Aerobic Blood Culture - Final Blood - Venous Staph Hominis Ss Hominis Anaerobic Blood Culture - Final Staph Hominis Ss Hominis Med Orders - Current: Current Medications Albuterol/Ipratropium (Duoneb 3.0-0.5 Mg/3 Ml) 3 ml NEB Q4HRRT [facility] Last Admin: 08/27/19 05:49 Dose: 3 ml Buspirone HCl (Buspar) 15 mg PO BID [facility] Last Admin: 08/26/19 20:57 Dose: 15 mg Ferrous Sulfate (Ferrous Sulfate) 325 mg PO DAILY [facility] Last Admin: 08/26/19 09:20 Dose: 325 mg Lactulose (Chronulac) 10 gm PO BID [facility] Last Admin: 08/26/19 20:58 Dose: 10 gm Levothyroxine Sodium (Synthroid) 200 mcg PO ACBREAKFAST [facility] Last Admin: 08/27/19 06:51 Dose: 200 mcg Lorazepam (Ativan) 1 mg PO Q6H PRN PRN Reason: Anxiety Last Admin: 08/27/19 02:12 Dose: 1 mg Midodrine (Midodrine) 5 mg PO BID [facility] Last Admin: 08/26/19 20:56 Dose: 5 mg Morphine Sulfate (Ms Contin) 30 mg PO Q12HR [facility] Last Admin: 08/26/19 20:51 Dose: 30 mg Morphine Sulfate (Morphine 10 Mg/0.5 Ml Oral Syringe) 20 mg PO Q4H PRN PRN Reason: Pain (severe 7-10) Last Admin: 08/27/19 02:40 Dose: 20 mg Ondansetron HCl (Zofran Odt) 4 mg PO Q4H PRN PRN Reason: nausea, able to take PO Folic Acid 0.4 Mg 1 each PO DAILY [facility] Last Admin: 08/26/19 09:22 Dose: Not Given Primidone (Mysoline) 50 mg PO BEDTIME [facility] Rivaroxaban (Xarelto) 20 mg PO DAILY [facility] Last Admin: 08/26/19 09:27 Dose: 20 mg Fluticasone/Salmeterol (Advair Diskus 250-50) 1 puff INH BID [facility] Last Admin: 08/26/19 20:50 Dose: 1 inhalation Sertraline HCl (Zoloft) 100 mg PO DAILY [facility] Last Admin: 08/26/19 09:20 Dose: 100 mg Sodium Chloride (Saline Flush) 10 ml FLUSH ASDIRECTED PRN PRN Reason: Keep Vein Open Last Admin: 08/22/19 17:45 Dose: 10 ml Sodium Chloride (Saline Flush) 2.5 ml FLUSH ASDIRECTED PRN PRN Reason: Keep Vein Open Last Admin: 08/22/19 17:45 Dose: 2.5 ml Thiamine HCl (Vitamin B-1) 250 mg PO DAILY [facility] Last Admin: 08/26/19 09:21 Dose: 250 mg Trazodone HCl (Trazodone) 100 mg PO BEDTIME PRN PRN Reason: Abdominal Pain Discontinued Medications Furosemide (Lasix) 20 mg PO DAILY [facility] Last Admin: 08/26/19 09:20 Dose: 20 mg Sodium Chloride (Normal Saline) 1,000 mls @ 125 mls/hr IV ASDIRECTED [facility] Last Admin: 08/22/19 17:45 Dose: 125 mls/hr Potassium Chloride 40 meq/ (Premix) 100 mls @ 25 mls/hr IV ONETIME ONE Stop: 08/22/19 22:31 Last Admin: 08/22/19 18:58 Dose: 25 mls/hr Magnesium Sulfate 2 gm/ Premix 50 mls @ 50 mls/hr IV ONETIME ONE Stop: 08/22/19 23:11 Last Admin: 08/22/19 23:10 Dose: 50 mls/hr Pantoprazole Sodium 40 mg/ (Sodium Chloride) 10 mls @ 300 mls/hr IV Q12H [facility] Last Admin: 08/26/19 13:21 Dose: Not Given Ceftriaxone Sodium/Dextrose 1 (gm/ Premix) 50 mls @ 100 mls/hr IV Q24H [facility] Last Admin: 08/25/19 08:20 Dose: 100 mls/hr Vancomycin HCl 1.5 gm/ Premix 300 mls @ 150 mls/hr IV Q18H [facility] Last Admin: 08/25/19 01:04 Dose: 150 mls/hr Lorazepam (Ativan) 1 mg IVPUSH ONETIME ONE Stop: 08/22/19 17:21 Last Admin: 08/22/19 17:45 Dose: 1 mg Lorazepam (Ativan) 2 mg PO TID PRN PRN Reason: Anxiety Last Admin: 08/26/19 07:06 Dose: 2 mg Morphine Sulfate (Morphine) 2 mg IVPUSH ONETIME ONE Stop: 08/22/19 18:30 Last Admin: 08/22/19 18:37 Dose: 2 mg Morphine Sulfate (Morphine) 2 mg IVPUSH Q2H PRN PRN Reason: Pain (severe 7-10) Stop: 08/23/19 22:05 Morphine Sulfate (Morphine) 2 mg IVPUSH Q2H PRN PRN Reason: Pain (severe 7-10) Morphine Sulfate (Morphine) 2 mg IVPUSH Q2H PRN PRN Reason: Pain (severe 7-10) Last Admin: 08/26/19 07:08 Dose: 2 mg Morphine Sulfate (Morphine) 15 mg PO Q6H PRN PRN Reason: Breakthrough Pain Last Admin: 08/25/19 04:57 Dose: 15 mg Oxycodone HCl (Oxycodone) 5 mg PO Q4H PRN PRN Reason: Pain (moderate 4-6) Oxycodone HCl (Oxycodone) 20 mg PO Q2H PRN PRN Reason: Pain Last Admin: 08/27/19 06:50 Dose: 20 mg Oxycodone HCl (Oxycontin) 20 mg PO Q12HR [facility] Last Admin: 08/26/19 20:52 Dose: 20 mg Potassium Chloride (Klor-Con M20) 40 meq PO ONETIME ONE Stop: 08/22/19 21:50 Last Admin: 08/22/19 22:34 Dose: 40 meq Potassium Chloride (Klor-Con M20) 40 meq PO BID@0900,1200 [facility] Stop: 08/23/19 12:01 Last Admin: 08/23/19 13:07 Dose: 40 meq Spironolactone (Aldactone) 50 mg PO DAILY [facility] Last Admin: 08/26/19 09:20 Dose: 50 mg Trazodone HCl (Trazodone Hcl) 100 mg PO BEDTIME PRN PRN Reason: Abdominal Pain Vancomycin HCl (Pharmacy To Dose - Vancomycin) 1 dose .XX ASDIRECTED [facility] - Exam General: Alert, Cooperative, No Acute Distress. No: Oriented Lungs: Clear to Auscultation, Normal Respiratory Effort Cardiovascular: Regular Rate, Regular Rhythm GI/Abdominal Exam: Normal Bowel Sounds, Soft, Tender (diffusely) Extremities: Normal Inspection, Normal Range of Motion, Non-Tender, No Pedal Edema Neurological: No New Focal Deficit Psy/Mental Status: Alert, Normal Affect, Normal Mood - Problem List & Annotations (1) Palliative care status SNOMED Code(s): 402529456 Code(s): Z51.5 - ENCOUNTER FOR PALLIATIVE CARE Status: Acute Current Visit: Yes (2) Metastatic cancer to liver Status: Chronic Priority: High Current Visit: Yes (3) Chronic anticoagulation SNOMED Code(s): 050318339 Code(s): Z79.01 - [facility] (CURRENT) USE OF ANTICOAGULANTS Status: Chronic Priority: High Current Visit: Yes (4) Alcohol abuse SNOMED Code(s): 86903152 Code(s): F10.10 - ALCOHOL ABUSE, UNCOMPLICATED Status: Chronic Current Visit: No (5) Ascites SNOMED Code(s): 445990137 Code(s): R18.8 - OTHER ASCITES Status: Chronic Current Visit: No Qualifiers: Ascites type: other type Qualified Code(s): R18.8 - Other ascites (6) Cancer-related pain SNOMED Code(s): 45621199377582 Code(s): G89.3 - NEOPLASM RELATED PAIN (ACUTE) (CHRONIC) Status: Chronic Current Visit: No (7) Cirrhosis of liver SNOMED Code(s): 40396030 Code(s): K74.60 - UNSPECIFIED CIRRHOSIS OF LIVER Status: Chronic Current Visit: No Qualifiers: Ascites presence: with ascites (8) Esophageal varices SNOMED Code(s): 51098717 Code(s): I85.00 - ESOPHAGEAL VARICES WITHOUT BLEEDING Status: Chronic Current Visit: No Qualifiers: Esophageal varices type: unspecified type Esophageal varices bleeding: without bleeding Qualified Code(s): I85.00 - Esophageal varices without bleeding (9) Portal vein thrombosis SNOMED Code(s): 91052830 Code(s): I81 - PORTAL VEIN THROMBOSIS Status: Acute Priority: High Current Visit: Yes - Problem List Review Problem List Initiated/Reviewed/Updated: Yes - Plan Plan:: 59 yo female with pmh of metastatic liver carcinoma who presents with abdominal pain. 1. Metastatic Liver ca: Palliative care now. Patient and family have decided on Hospice. They are arranging everything with Hospice at this time. They feel they will be ready by tomorrow. Continue Morphine ER and IR for breakthrough pain. Doses increased over the weekend. Discontinue Oxycontin and Oxycodone, will just assess pain and increase Morphine dosing as needed. Tried Fentanyl patch prior, did not like this. Continue Xarelto 2. Anxiety/Alcohol abuse: Continue Ativan 3. COPD: Stable. continue home inhalers and add nebs. Dispo: Continue palliative care. Spoke with son John. They are arranging everything with Hospice, hoping to discharge home tomorrow
[2019-08-27] MEDS: Midodrine 5 MG Tab PO SCH ×2 (09:08→20:42)
[2019-08-27] MEDS: Morphine 30 MG Tab.ER PO SCH ×2 (09:08→20:42)
[2019-08-27] MEDS: busPIRone 5 MG Tab PO SCH ×2 (09:09→20:41)
[2019-08-27] MEDS: Rivaroxaban 10 MG Tab PO SCH (09:09)
[2019-08-27] MEDS: Sertraline 100 MG Tab PO SCH (09:10)
[2019-08-27] MEDS: Ferrous Sulfate 325 MG Tab PO SCH (09:10)
[2019-08-27] MEDS: Thiamine 100 MG Tab PO SCH (09:10)
[2019-08-27] MEDS: Lactulose Soln 10 GM/15 ML 15 ML UD Cup PO SCH ×2 (09:15→20:43)
[2019-08-27] MEDS: Fluticasone/Salmeterol 250-50 MCG Inhalation Powder 14/Diskus INH SCH ×2 (09:49→20:41)
[2019-08-27] MEDS ORDERED: Albuterol/Ipratropium 3.0-0.5 MG/3 ML Neb Soln NEB PRN (18:00)
[2019-08-28] MEDS: LORazepam 1 MG Tab PO PRN (00:43)
[2019-08-28] MEDS: Morphine 10 MG/0.5 ML Oral Syringe PO PRN (00:44)
[2019-08-28] MEDS: Levothyroxine 100 MCG Tab PO SCH (07:09)
[2019-08-28] MEDS: Morphine 30 MG Tab.ER PO SCH (08:58)
[2019-08-28] MEDS: Sertraline 100 MG Tab PO SCH (08:59)
[2019-08-28] MEDS: Rivaroxaban 10 MG Tab PO SCH (08:59)
[2019-08-28] MEDS: Midodrine 5 MG Tab PO SCH (08:59)
[2019-08-28] MEDS: busPIRone 5 MG Tab PO SCH (08:59)
[2019-08-28] MEDS: Lactulose Soln 10 GM/15 ML 15 ML UD Cup PO SCH (09:00)
[2019-08-28] MEDS: Fluticasone/Salmeterol 250-50 MCG Inhalation Powder 14/Diskus INH SCH (09:05)
--- NOTE | 2019-08-28 09:17 | PCM.DCSUM1 ---
Discharge Summary - Hospital Course Brief History: 59 year old female with pmh of Hepatitis C, metastatic liver carcinoma, COPD, and portal vein thrombus who presents to the ED with complaints of abdominal pain. Patient reports RUQ abdominal pain for past two years. Patient states the pain became more intense today. She denies any fevers, nausea, or vomiting. She does report dark stools. 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 Status: Chronic Priority: High Current Visit: Yes (4) Alcohol abuse SNOMED Code(s): 39628506 ICD Code: F10.10 - ALCOHOL ABUSE, UNCOMPLICATED Status: Chronic Current Visit: No (5) Ascites SNOMED Code(s): 013431935 ICD Code: R18.8 - OTHER ASCITES Status: Chronic Current Visit: No Qualifiers: Ascites type: other type Qualified Code(s): R18.8 - Other ascites (6) Cancer-related pain SNOMED Code(s): 91225617589367 ICD Code: G89.3 - NEOPLASM RELATED PAIN (ACUTE) (CHRONIC) Status: Chronic Current Visit: No (7) Cirrhosis of liver SNOMED Code(s): 03961761 ICD Code: K74.60 - UNSPECIFIED CIRRHOSIS OF LIVER Status: Chronic Current Visit: No Qualifiers: Ascites presence: with ascites (8) Esophageal varices SNOMED Code(s): 10148807 ICD Code: I85.00 - ESOPHAGEAL VARICES WITHOUT BLEEDING Status: Chronic Current Visit: No Qualifiers: Esophageal varices type: unspecified type Esophageal varices bleeding: without bleeding Qualified Code(s): I85.00 - Esophageal varices without bleeding (9) Portal vein thrombosis SNOMED Code(s): 68608917 ICD Code: I81 - PORTAL VEIN THROMBOSIS Status: Acute Priority: High Current Visit: Yes - Patient Summary/Data Consults: Consultations 08/23/19 10:06 Consult to Hospice [CONS] Routine 08/23/19 12:32 Consult to Physical Therapy [PT Evaluation and Treatment] [CONS] Routine 08/25/19 09:31 Consult to Spiritual Care [CONS] Routine - Patient Instructions Diet: Usual Diet as Tolerated Activity: As Tolerated Driving: Do Not Drive Showering/Bathing: May Shower Other/Special Instructions: Hospice to admit at home. - Discharge Plan *PRESCRIPTION DRUG MONITORING PROGRAM REVIEWED*: Not Applicable *COPY OF PRESCRIPTION DRUG MONITORING REPORT IN PATIENT SAURABH: Not Applicable Home Medications: Home Meds Sertraline [Zoloft] 100 mg PO DAILY 08/21/16 [History] Albuterol/Ipratropium [DuoNeb 3.0-0.5 MG/3 ML] 2.5 mg NEB Q6H 03/12/17 [History] Albuterol Sulfate [Proair Hfa] 1 puff INH QID 04/13/19 [History] Losartan [Cozaar] 50 mg PO BID 04/13/19 [History] Primidone 50 mg PO BEDTIME 04/13/19 [History] Lactulose 10 gm PO BID 06/06/19 [History] LORazepam [Ativan] 2 mg PO TID PRN 07/25/19 [History] busPIRone HCl [Buspirone HCl] 15 mg PO BID 07/25/19 [History] traZODone HCl [Trazodone HCl] 100 mg PO BEDTIME PRN 07/25/19 [History] Fluticasone/Salmeterol [Advair 250-50] 1 puff INH BID diskus 07/27/19 [Rx] Furosemide [Lasix] 40 mg PO DAILY 30 Days #30 tablet 07/27/19 [Rx] Midodrine 5 mg PO BID 30 Days #30 tablet 07/27/19 [Rx] Morphine [MS Contin] 30 mg PO Q12HR 30 Days #60 tab.er 07/27/19 [Rx] Spironolactone [Aldactone] 50 mg PO DAILY 60 Days #60 tablet 07/27/19 [Rx] Morphine 20 mg PO Q4H PRN 30 Days #120 tablet 08/28/19 [Rx] Oxygen Therapy Mode: Room Air Patient Handouts: Chronic Obstructive Pulmonary Disease Exacerbation, Easy-to- Read, Hypokalemia, Ascites, Liver Cancer - Discharge Summary/Plan Comment DC Time >30 min.: No Discharge Summary/Plan Comment: Admitting Diagnoses: Abdominal pain Metastatic liver cancer Portal vein thrombosis Discharge Diagnoses: Palliative Care Hospice Metastatic liver cancer Portal vein thrombosis Abdominal pain Anxiety Michelle was admitted with increased abdominal pain. She was monitored and noted to have UTI and bacteremia. She was initially treated with antibiotics and improved slightly. Family involved in care. We discussed at length prognosis and that currently treatments were only palliative in nature. She and family discussed options and have decided on Hospice care. She is wanting to be comfortable in the time she has left, though she is very anxious about dying and not having a cure for her cancer. She will be discharged home today in the care of Hospice. I will continue her MS Contin and Morphine IR for breakthrough pain along with Ativan. We will also continue with Lasix, Spironolactone due to increase in edema. She is to follow with PCP. Hospice to admit today. - General Info Date of Service: 08/28/19 Admission Dx/Problem (Free Text: Metastatic liver cancer, ascites, intractable pain. - Patient Data Vitals - Most Recent: Last Vital Signs Temp 97.7 F 08/28/19 07:48 Pulse 85 08/28/19 07:48 Resp 16 08/28/19 07:48 BP 114/60 08/28/19 07:48 Pulse Ox 94 L 08/28/19 07:48 Weight - Most Recent: 138.482 kg I&O - Last 24 hours: Intake & Output 08/27/19 08/28/19 08/28/19 22:59 06:59 14:59 Intake Total 840 700 Output Total 400 400 Balance 440 300 DARSHAN Results - Last 24 hrs: Microbiology 08/24/19 08:16 Aerobic Blood Culture - Preliminary Blood - Venous - Lab Draw NO GROWTH AFTER 4 DAYS Anaerobic Blood Culture - Preliminary NO GROWTH AFTER 4 DAYS 08/24/19 08:10 Aerobic Blood Culture - Preliminary Blood - Venous NO GROWTH AFTER 4 DAYS Anaerobic Blood Culture - Preliminary NO GROWTH AFTER 4 DAYS 08/22/19 17:54 Aerobic Blood Culture - Final Blood - Venous - Lab Draw Anaerobic Blood Culture - Final NO GROWTH AFTER 5 DAYS Med Orders - Current: Current Medications Albuterol/Ipratropium (Duoneb 3.0-0.5 Mg/3 Ml) 3 ml NEB Q4HRRT PRN PRN Reason: Wheezing Buspirone HCl (Buspar) 15 mg PO BID [facility] Last Admin: 08/28/19 08:59 Dose: 15 mg Lactulose (Chronulac) 10 gm PO BID [facility] Last Admin: 08/28/19 09:00 Dose: 10 gm Levothyroxine Sodium (Synthroid) 200 mcg PO ACBREAKFAST [facility] Last Admin: 08/28/19 07:09 Dose: 200 mcg Lorazepam (Ativan) 1 mg PO Q6H PRN PRN Reason: Anxiety Last Admin: 08/28/19 00:43 Dose: 1 mg Midodrine (Midodrine) 5 mg PO BID [facility] Last Admin: 08/28/19 08:59 Dose: 5 mg Morphine Sulfate (Ms Contin) 30 mg PO Q12HR [facility] Last Admin: 08/28/19 08:58 Dose: 30 mg Morphine Sulfate (Morphine 10 Mg/0.5 Ml Oral Syringe) 20 mg PO Q4H PRN PRN Reason: Pain (severe 7-10) Last Admin: 08/28/19 00:44 Dose: 20 mg Ondansetron HCl (Zofran Odt) 4 mg PO Q4H PRN PRN Reason: nausea, able to take PO Folic Acid 0.4 Mg 1 each PO DAILY [facility] Last Admin: 08/28/19 09:00 Dose: Not Given Primidone (Mysoline) 50 mg PO BEDTIME [facility] Rivaroxaban (Xarelto) 20 mg PO DAILY [facility] Last Admin: 08/28/19 08:59 Dose: 20 mg Fluticasone/Salmeterol (Advair Diskus 250-50) 1 puff INH BID [facility] Last Admin: 08/28/19 09:05 Dose: 1 inhalation Sertraline HCl (Zoloft) 100 mg PO DAILY [facility] Last Admin: 08/28/19 08:59 Dose: 100 mg Sodium Chloride (Saline Flush) 10 ml FLUSH ASDIRECTED PRN PRN Reason: Keep Vein Open Last Admin: 08/22/19 17:45 Dose: 10 ml Sodium Chloride (Saline Flush) 2.5 ml FLUSH ASDIRECTED PRN PRN Reason: Keep Vein Open Last Admin: 08/22/19 17:45 Dose: 2.5 ml Trazodone HCl (Trazodone) 100 mg PO BEDTIME PRN PRN Reason: Abdominal Pain Discontinued Medications Albuterol/Ipratropium (Duoneb 3.0-0.5 Mg/3 Ml) 3 ml NEB Q4HRRT [facility] Last Admin: 08/27/19 17:44 Dose: 3 ml Ferrous Sulfate (Ferrous Sulfate) 325 mg PO DAILY [facility] Last Admin: 08/27/19 09:10 Dose: 325 mg Furosemide (Lasix) 20 mg PO DAILY [facility] Last Admin: 08/26/19 09:20 Dose: 20 mg Sodium Chloride (Normal Saline) 1,000 mls @ 125 mls/hr IV ASDIRECTED [facility] Last Admin: 08/22/19 17:45 Dose: 125 mls/hr Potassium Chloride 40 meq/ (Premix) 100 mls @ 25 mls/hr IV ONETIME ONE Stop: 08/22/19 22:31 Last Admin: 08/22/19 18:58 Dose: 25 mls/hr Magnesium Sulfate 2 gm/ Premix 50 mls @ 50 mls/hr IV ONETIME ONE Stop: 08/22/19 23:11 Last Admin: 08/22/19 23:10 Dose: 50 mls/hr Pantoprazole Sodium 40 mg/ (Sodium Chloride) 10 mls @ 300 mls/hr IV Q12H [facility] Last Admin: 08/26/19 13:21 Dose: Not Given Ceftriaxone Sodium/Dextrose 1 (gm/ Premix) 50 mls @ 100 mls/hr IV Q24H [facility] Last Admin: 08/25/19 08:20 Dose: 100 mls/hr Vancomycin HCl 1.5 gm/ Premix 300 mls @ 150 mls/hr IV Q18H [facility] Last Admin: 08/25/19 01:04 Dose: 150 mls/hr Lorazepam (Ativan) 1 mg IVPUSH ONETIME ONE Stop: 08/22/19 17:21 Last Admin: 08/22/19 17:45 Dose: 1 mg Lorazepam (Ativan) 2 mg PO TID PRN PRN Reason: Anxiety Last Admin: 08/26/19 07:06 Dose: 2 mg Morphine Sulfate (Morphine) 2 mg IVPUSH ONETIME ONE Stop: 08/22/19 18:30 Last Admin: 08/22/19 18:37 Dose: 2 mg Morphine Sulfate (Morphine) 2 mg IVPUSH Q2H PRN PRN Reason: Pain (severe 7-10) Stop: 08/23/19 22:05 Morphine Sulfate (Morphine) 2 mg IVPUSH Q2H PRN PRN Reason: Pain (severe 7-10) Morphine Sulfate (Morphine) 2 mg IVPUSH Q2H PRN PRN Reason: Pain (severe 7-10) Last Admin: 08/26/19 07:08 Dose: 2 mg Morphine Sulfate (Morphine) 15 mg PO Q6H PRN PRN Reason: Breakthrough Pain Last Admin: 08/25/19 04:57 Dose: 15 mg Oxycodone HCl (Oxycodone) 5 mg PO Q4H PRN PRN Reason: Pain (moderate 4-6) Oxycodone HCl (Oxycodone) 20 mg PO Q2H PRN PRN Reason: Pain Last Admin: 08/27/19 06:50 Dose: 20 mg Oxycodone HCl (Oxycontin) 20 mg PO Q12HR [facility] Last Admin: 08/26/19 20:52 Dose: 20 mg Potassium Chloride (Klor-Con M20) 40 meq PO ONETIME ONE Stop: 08/22/19 21:50 Last Admin: 08/22/19 22:34 Dose: 40 meq Potassium Chloride (Klor-Con M20) 40 meq PO BID@0900,1200 [facility] Stop: 08/23/19 12:01 Last Admin: 08/23/19 13:07 Dose: 40 meq Spironolactone (Aldactone) 50 mg PO DAILY [facility] Last Admin: 08/26/19 09:20 Dose: 50 mg Thiamine HCl (Vitamin B-1) 250 mg PO DAILY [facility] Last Admin: 08/27/19 09:10 Dose: 250 mg Trazodone HCl (Trazodone Hcl) 100 mg PO BEDTIME PRN PRN Reason: Abdominal Pain Vancomycin HCl (Pharmacy To Dose - Vancomycin) 1 dose .XX ASDIRECTED [facility]
[2019-08-28 12:36] VITALS: BP 119/62; PULSE 88
== END 2019-08-28 15:15 | disposition hospice, home (50) | DRG 861 ==
LOC: MW.ED 17:18 → MW.MS 18:46 → MW.ED 19:42 → OBSVTOIN 08-23 11:40 → MW.MS 08-23 12:24
PROVIDERS: ADMIT Internal Medicine; ATTEND Internal Medicine
DX: G89.3 Neoplasm related pain (acute) (chronic) (principal); J44.9 Chronic obstructive pulmonary disease, unspecified; Z51.5 Encounter for palliative care; I10 Essential (primary) hypertension; F41.9 Anxiety disorder, unspecified; F32.9 Major depressive disorder, single episode, unspecified; E03.9 Hypothyroidism, unspecified; E66.9 Obesity, unspecified; F17.210 Nicotine dependence, cigarettes, uncomplicated; C22.8 Malignant neoplasm of liver, primary, unspecified as to type; F10.10 Alcohol abuse, uncomplicated; R18.8 Other ascites; K74.60 Unspecified cirrhosis of liver; I85.00 Esophageal varices without bleeding; I81 Portal vein thrombosis; N39.0 Urinary tract infection, site not specified; Z90.710 Acquired absence of both cervix and uterus; Z79.890 Hormone replacement therapy; Z86.19 Personal history of other infectious and parasitic diseases; Z88.2 Allergy status to sulfonamides; Z88.1 Allergy status to other antibiotic agents; Z79.899 Other long term (current) drug therapy; Z90.49 Acquired absence of other specified parts of digestive tract; Z92.21 Personal history of antineoplastic chemotherapy; Z98.51 Tubal ligation status
CPT/HCPCS: 36415; 36600; 70450; 70450-26; 71045; 71045-26; 74176; 74176-26; 80053; 81001; 82140; 82272; 82803; 83735; 84484; 85025; 85610; 87040; 87077; 87086; 87186; 93005; 94640; 94664; 96361; 96365; 96367; 96375; 96376; 97161-GP; 99285; 99285-25; A9270-GY; C9113; G0378; J0696; J2060; J2270; J3370; J3475; J3480; J7040; J7050; J7620-GY